=== PATIENT | male | born 1960 | race Caucasian/White ===

== ENCOUNTER 2018-02-23 11:42 | Inpatient (IN) | payer OTHER ==
[~2018-02-23] VITALS: Ht 188 cm; Wt 86.8 kg
[~2018-02-23 11:42] MED LIST: HYDR-4011 PO; IBUP-1542 PO
[2018-02-23] MEDS ORDERED: FUROSEMIDE 40 MG INJ IV STA (11:47)
[2018-02-23] MEDS ORDERED: ASPIRIN 81 MG TAB PO STA (11:47)
[2018-02-23] MEDS ORDERED: NITROGLYCERIN 2% 1 GM OINT PKT TD STA (11:47)
[2018-02-23] MEDS ORDERED: NITROGLYCERIN (SL) 0.4 MG TAB SL PRN (12:00)
[2018-02-23] MEDS ORDERED: CARV6.2579 PO (13:06)
[2018-02-23] MEDS ORDERED: ALLO100T PO (13:06)
[2018-02-23] MEDS ORDERED: ATOR40TA68 PO (13:06)
[2018-02-23] MEDS ORDERED: DIGO125T PO (13:06)
[2018-02-23] MEDS ORDERED: MULTI PO (13:07)
[2018-02-23] MEDS ORDERED: FURO20TA3 PO (13:07)
[2018-02-23] MEDS ORDERED: LISI2.5T59 PO (13:07)
[2018-02-23] MEDS ORDERED: RIVA20TA5 PO (13:08)
[2018-02-23] MEDS ORDERED: ACETAMINOPHEN 325 MG TAB PO PRN ×2 (13:30→14:00)
[2018-02-23] MEDS ORDERED: ONDANSETRON 4 MG INJ IV PRN ×2 (13:30→14:00)
--- NOTE | 2018-02-23 13:32 | ERD ---
ER Documentation Chief Complaint Chief Complaint left lower leg varicose bleed. bleeding controlled, denies pain HPI Patient is a 57-year-old male with CHF and hypertension who presents with shortness of breath. He was brought in by ambulance. He said that his left leg varicose vein started bleeding 40 minutes ago. He wrapped the leg himself. He had shortness of breath and trouble with laying down which started last night. He has bilateral lower extremity swelling. He said that he has been waking up around 3 AM with shortness of breath and going to his armed security officer because he is worried he is going to pass out because of the shortness of breath. He does take Xarelto. He takes daily Lasix. He said that his primary doctor is at [facility]. ROS All systems reviewed and are negative except as per history of present illness. Medications Home Meds Reported Medications Rivaroxaban* (Xarelto*) 20 Mg Tablet, 20 MG PO WITH DINNER, TAB 02/23/18 Multivitamins* (Theragran*) 1 Tab Tab, 1 TAB PO DAILY, TAB 02/23/18 Lisinopril* (Lisinopril*) 2.5 Mg Tablet, 2.5 MG PO DAILY, #30 TAB 02/23/18 Furosemide* (Furosemide*) 20 Mg Tablet, 20 MG PO DAILY, #60 TAB 02/23/18 Digoxin* (Digitek*) 125 Mcg Tablet, 0.125 MG PO DAILY, TAB 02/23/18 Carvedilol* (Carvedilol*) 6.25 Mg Tablet, 6.25 MG PO BID, #60 TAB 02/23/18 Atorvastatin* (Atorvastatin*) 40 Mg Tablet, 40 MG PO QHS, #30 TAB 02/23/18 Allopurinol* (Allopurinol*) 100 Mg Tablet, 100 MG PO DAILY, TAB 02/23/18 Discontinued Reported Medications Multivitamins* (Theragran*) 1 Tab Tab, 1 TAB PO DAILY, TAB 02/23/18 Discontinued Scripts Hydrocodone/Acetaminophen (Mentmore 5-325 Tablet) 1 Each Tablet, 1 TAB PO Q6H PRN for PAIN, #7 TAB Prov:SOWMYA FARLEY MD 08/06/17 Ibuprofen* (Motrin*) 600 Mg Tab, 600 MG PO Q6, #20 TAB Prov:SOWMYA FARLEY MD 08/06/17 Allergies Allergies: Coded Allergies: No Known Drug Allergies (Verified Allergy, Mild, 04/07/11) PMhx/Soc History of Surgery: No Anesthesia Reaction: No Hx Neurological Disorder: No Hx Respiratory Disorders: No Hx Cardiac Disorders: Yes (CHF) Hx Psychiatric Problems: No Hx Miscellaneous Medical Probl: No Hx Alcohol Use: No Hx Substance Use: No Hx Tobacco Use: No Smoking Status: Never smoker FmHx Family History: No diabetes Physical Exam Vitals Vital Signs Date Temp Pulse Resp B/P (MAP) Pulse Ox O2 O2 Flow FiO2 Time Delivery Rate 02/23/18 Nasal 2 12:23 Cannula 02/23/18 98.1 82 18 112/82 100 11:46 (92) Physical Exam Const: No acute distress Head: Atraumatic Eyes: Normal Conjunctiva ENT: Normal External Ears, Nose and Mouth. Neck: Full range of motion. No meningismus. Resp: Decreased breath sounds bilaterally Cardio: Tachycardic rate without murmur Abd: Soft, non tender, non distended. Normal bowel sounds Skin: No active bleeding from a left lower extremity varicose vein Back: No midline or flank tenderness Ext: 2+ pitting edema bilateral lower extremities Neur: Awake and alert Psych: Normal Mood and Affect Result Diagram: 02/23/18 1210 02/23/18 1210 Results 24 hrs Laboratory Tests Test 02/23/18 12:10 White Blood Count 8.8 10^3/ul Red Blood Count 3.95 10^6/ul Hemoglobin 13.4 g/dl Hematocrit 40.9 % Mean Corpuscular Volume 103.5 fl Mean Corpuscular Hemoglobin 33.9 pg Mean Corpuscular Hemoglobin Concent 32.8 g/dl Red Cell Distribution Width 13.5 % Platelet Count 171 10^3/UL Mean Platelet Volume 11.8 fl Immature Granulocytes % 0.300 % Neutrophils % 68.2 % Lymphocytes % 18.2 % Monocytes % 11.5 % Eosinophils % 1.0 % Basophils % 0.8 % Nucleated Red Blood Cells % 0.0 /100WBC Immature Granulocytes # 0.030 10^3/ul Neutrophils # 6.0 10^3/ul Lymphocytes # 1.6 10^3/ul Monocytes # 1.0 10^3/ul Eosinophils # 0.1 10^3/ul Basophils # 0.1 10^3/ul Nucleated Red Blood Cells # 0.0 10^3/ul Prothrombin Time 16.1 Sec Prothrombin Time Ratio 1.3 INR International Normalized Ratio 1.27 Activated Partial Thromboplast Time 34.2 Sec Sodium Level 137 mmol/L Potassium Level 3.5 mmol/L Chloride Level 95 mmol/L Carbon Dioxide Level 27 mmol/L Anion Gap 15 Blood Urea Nitrogen 34 mg/dl Creatinine 1.32 mg/dl Est Glomerular Filtrat Rate mL/min 56 mL/min Glucose Level 124 mg/dl Calcium Level 8.6 mg/dl Troponin I 0.030 ng/ml Current Medications Medications Dose Sig/Pedro Start Time Status Last (Trade) Ordered Route PRN Stop Time Admin Dose Reason Admin Aspirin 162 mg ONCE STAT 02/23/18 DC 02/23/18 (Aspirin) PO 11:47 12:25 02/23/18 11:49 1 inch ONCE STAT 02/23/18 DC 02/23/18 Nitroglycerin TD 11:47 12:24 02/23/18 (Nitroglyceri 11:49 n 2% Oint) 1 tab Q5M UP TO 3 02/23/18 Nitroglycerin DOSES PRN 12:00 SL CHEST (Nitroglyceri PAIN n (Sl Tab) 0.4 Mg) Furosemide 40 mg ONCE STAT 02/23/18 DC 02/23/18 (Lasix) IV 11:47 12:25 02/23/18 11:49 Ondansetron 4 mg ER BRIDGE 02/23/18 HCl (Zofran PRN IV 13:30 Inj) NAUSEA AND/OR 02/24/18 VOMITING 13:29 650 mg ER BRIDGE 02/23/18 Acetaminophen PRN PO MILD 13:30 (Tylenol PAIN(1-3)OR 02/24/18 Tab) ELEVATED TEMP 13:29 Procedures/MDM Chest x-ray shows cardiomegaly per radiology. EKG read by me: Rate/Rhythm: Tachycardia Intervals: Normal Impression: Sinus tachycardia without ST elevations Patient is a 57-year-old male presents with shortness of breath. I believe the patient has acute congestive heart failure. I doubt pneumonia, pneumothorax, pulmonary embolism, or aortic dissection. The patient will be admitted to the care of Dr. Flores from the panel team to a telemetry observation bed. The patient was given aspirin, nitroglycerin, and Lasix. Initial troponin is within normal limits. Departure Diagnosis: Primary Impression: CHF (congestive heart failure) Heart failure type: unspecified Heart failure chronicity: acute Qualified Codes: I50.9 - Heart failure, unspecified Additional Impression: Active bleeding Condition: AIDA Xiong MD Feb 23, 2018 13:32
--- NOTE | 2018-02-23 13:57 | HP ---
Date/Time of Note Date/Time of Note DATE: 02/23/18 TIME: 13:56 Assessment/Plan VTE Prophylaxis Pharmacological prophylaxis: other Lines/Catheters IV Catheter Type (from Nrs): Saline Lock Assessment/Plan Hospital Course Objective Physical exam General: Patient is laying in bed and answers questions appropriately Mentation: Patient is alert and oriented 4, Head: Normocephalic atraumatic Eyes: EOMI, pupils reactive to light Neck: Supple, nontender, midline Respiratory: Clear to auscultation bilaterally Cardiovascular: regular rate, no obvious murmurs Gastrointestinal: non-tender to palpation, bowel sounds heard. Neurological: Moves all extremities spontaneously Skin: No new skin lesions Assessment and plan Acute hypoxic respiratory distress -Secondary to noncompliance of oxygen therapy, however this is not patient's fall, supplies were not delivered -patient has CHF with ejection fraction of 10% -Place patient on nasal cannula -Patient comfortable -Trend troponins Acute on chronic systolic congestive heart failure, EF of 10% -Cardiology has been consulted -Restart patient's home medications, defer to cardiology for any changes and recommendations A. fib -Patient on Xarelto -Continue home meds Hypertension -Continue home meds Dyslipidemia -Continue home meds Bleeding left leg -very small cut, -Already stopped bleeding -Bilateral ultrasound as patient stated that swelling was because of the cut Acute kidney injury -Nephrology consulted Disposition -Case management will need to arrange and ensure patient has all supplies ready for him at home, cardiology will make minor adjustments to his medications and patient will likely be discharged in a day or 2. HPI/ROS Admit Date/Time Admit Date/Time Hx of Present Illness Patient is a male with a past medical history significant for A. fib as well as systolic CHF with ejection fraction of 10% who presents to [facility] for a cut on his left leg. Patient stated that his leg is been more swollen and there was a mild cut that has now stopped bleeding. Coincidentally after further inquiry patient stated that recently he has been getting progressively worsening shortness of breath when he lies down and has noticed more swelling in his lower extremity. Patient follows up with a cardiology nurse practitioner at [facility], and is more or less compliant with his medications. Patient does have a social media strategist that does take care of him on his behalf with his social issues. Patient states that oxygen tanks have been delivered to him by his doctor however he has no nasal cannula supplies. Patient denies chest pain, headache, double vision, abdominal pain, leg pain PMH/Family/Social Past Medical History Coded Allergies: No Known Drug Allergies (Verified Allergy, Mild, 04/07/11) Social History Smoking Status: Never smoker Exam/Review of Systems Vital Signs Vitals Vital Signs Date Temp Pulse Resp B/P (MAP) Pulse Ox O2 O2 Flow FiO2 Time Delivery Rate 02/23/18 Nasal 2 12:23 Cannula 02/23/18 98.1 82 18 112/82 100 11:46 (92) Medications Medications Current Medications Nitroglycerin (Nitroglycerin (Sl Tab) 0.4 Mg) 1 tab Q5M UP TO 3 DOSES PRN SL CHEST PAIN; Start 02/23/18 at 12:00 Ondansetron HCl (Zofran Inj) 4 mg ER BRIDGE PRN IV NAUSEA AND/OR VOMITING; Start 02/23/18 at 13:30; Stop 02/24/18 at 13:29 Acetaminophen (Tylenol Tab) 650 mg ER BRIDGE PRN PO MILD PAIN(1-3)OR ELEVATED TEMP; Start 02/23/18 at 13:30; Stop 02/24/18 at 13:29 Results Result Diagram: 02/23/18 1210 02/23/18 1210 Results 24 hrs Laboratory Tests Test 02/23/18 12:10 White Blood Count 8.8 Red Blood Count 3.95 L Hemoglobin 13.4 L Hematocrit 40.9 L Mean Corpuscular Volume 103.5 H Mean Corpuscular Hemoglobin 33.9 H Mean Corpuscular Hemoglobin Concent 32.8 Red Cell Distribution Width 13.5 Platelet Count 171 Mean Platelet Volume 11.8 H Immature Granulocytes % 0.300 Neutrophils % 68.2 Lymphocytes % 18.2 Monocytes % 11.5 H Eosinophils % 1.0 Basophils % 0.8 Nucleated Red Blood Cells % 0.0 Immature Granulocytes # 0.030 Neutrophils # 6.0 Lymphocytes # 1.6 Monocytes # 1.0 H Eosinophils # 0.1 Basophils # 0.1 Nucleated Red Blood Cells # 0.0 Prothrombin Time 16.1 H Prothrombin Time Ratio 1.3 INR International Normalized Ratio 1.27 Activated Partial Thromboplast Time 34.2 Sodium Level 137 Potassium Level 3.5 Chloride Level 95 L Carbon Dioxide Level 27 Anion Gap 15 H Blood Urea Nitrogen 34 H Creatinine 1.32 H Est Glomerular Filtrat Rate mL/min 56 L Glucose Level 124 Calcium Level 8.6 Troponin I 0.030 GUSTAVO GIANG Feb 23, 2018 13:57
[2018-02-23] MEDS ORDERED: NACL 0.9% 3 ML SYG IV SCH (14:00)
[2018-02-23] MEDS ORDERED: HYDROCODONE/APAP (5/325) TAB PO PRN (14:00)
[2018-02-23 14:45] VITALS: BP 98/64; PULSE 54; RESP 18; Ht 188 cm; Wt 86.8 kg
[2018-02-23 15:00] VITALS: PULSE 98
--- NOTE | 2018-02-23 16:11 | RADRPT ---
Echocardiogram Report Patient Name: JESSICA MASSEY Gender: Male Date: 1960 Study Date: 23-Feb-2018 Typing Office Worker: Harshad Ng RDCS Location: [facility] Ref. Physician: GUSTAVO GIANG Quality: Adequate Procedures: Transthoracic echocardiogram with complete 2D, M-Mode, and doppler examination. Indications: Congestive Heart Failure. 2D/M Mode Doppler Measurement Value Normal Ranges Measurement Value Normal Ranges LVIDd 2D 7.1 3.5 - 5.6 cm AV Peak Sebastian 1.0 m/sec LVIDs 2D 6.6 2.1 - 4.1 cm AV Peak PG 4.0 mmHg LVPWd 2D 0.9 0.6 - 1.1 cm LVOT Peak Sebastian 0.7 m/sec IVSd 2D 1.0 0.6 - 1.1 cm LVOT Peak PG 2.0 mmHg AoR Diam 2D 3.2 2.0 - 3.7 cm TAPSE 1.0 cm LA/Ao 2D 2 0 - 1 TR Peak Sebastian 2.8 m/sec LA Dimen 2D 5.9 2.3 - 4.0 cm TR Peak PG 31.0 mmHg RVSP 46.0 mmHg RA Pressure 15.0 Findings Left Ventricle: Normal left ventricular wall thickness. Severe enlargement of left ventricle cavity. Severe global left ventricular systolic dysfunction. Ejection fraction is visually estimated at 10 %. Right Ventricle: Severe right ventricular systolic dysfunction. Moderate enlargement of right ventricle. Left Atrium: There is severe enlargement of left atrium. LA Dimension5.90 cm. Right Atrium: There is severe enlargement of right atrium. Mitral Valve: Mitral valve leaflets appear mildly thickened. Mild mitral annular calcification. Mild to moderate mitral valve regurgitation. Aortic Valve: Normal appearance of the aortic valve. No significant aortic stenosis or insufficiency. Tricuspid Valve: Normal appearance of the tricuspid valve. Estimated peak PA systolic pressure 46 mmHg. There is mild tricuspid regurgitation. Pulmonic Valve: Normal pulmonic valve appearance. Pericardium: Small pericardial effusion. Aorta: Normal aortic root. IVC: Dilated IVC without respiratory collapse consistent with elevated right atrial pressure. Conclusions The left ventricle is severely dilated with severely reduced systolic function. Estimated left ventricular ejection fraction of 10%. The right ventricle is moderately dilated with severe hypokinesis. Mild to moderate mitral regurgitation. Severe bi-atrial enlargement. Estimated RVSP of 46 mmHg. Elevated right atrial pressure (estimated to be 15 mmHg). Electronically Signed By: Derek Onofre 23-Feb-2018 16:10:16 -0800 Patient Name: JESSICA MASSEY Study Date: 23-Feb-[id number]
[2018-02-23 16:12] VITALS: PULSE 117
--- NOTE | 2018-02-23 17:22 | CONS ---
DATE OF ADMISSION: 02/23/2018 DATE OF CONSULTATION: 02/23/2018 TYPE OF CONSULTATION: Nephrology. REASON FOR CONSULTATION: Acute kidney injury. PHYSICIAN REQUESTING CONSULT: Dr. Giang. HISTORY OF PRESENT ILLNESS: This is a 57-year-old male with a past medical history of card iomyopathy, ejection fraction 10%, possibly viral, a history of AFib, hypertension, dyslipidemia who presents to [facility] with progressive shortness of breath, lower extremity swelli ng. The patient states that he is followed at [facility] by Cardiology Department. The patient stated ejection fraction approximately 10% and is pending ICD placement. The patient states that he has been on diuretic therapy but he has been getting progressively short of breath. As a result, he came to the emergency room. Upon arrival, the patient noted to have a BUN 34, creatinine 1.32. Marcela st x-ray was obtained which showed marked cardiomegaly. The patient in the emergency room was placed on diuretic therapy and admitted to telemetry. In terms of patient's renal history, the patient has no prior history of acute kidney injury or chron ic kidney disease. The patient does take diuretics at home and is on SOHAIL inhibitor. The patient den ies any NSAID use, any hemoptysis, hematemesis or hematochezia. PAST MEDICAL HISTORY: History of severe cardiomyopathy, history of AFib, hypertension, dyslipidemia. PAST SURGICAL HISTORY: None. ALLERGIES: NO KNOWN DRUG ALLERGIES. FAMILY HISTORY: No family history of kidney disease. SOCIAL HISTORY: Does not actively drink, smoke or do drugs. MEDICATIONS: The patient's medications have been reviewed. REVIEW OF SYSTEMS: A 14-point review of systems was conducted. Pertinent positives stated in HPI, o therwise negative. PHYSICAL EXAMINATION: VITAL SIGNS: Blood pressure is 102/83, respirations 24, pulse 122, temperature 98.1. HEENT: Head is normocephalic. NECK: Supple. HEART: Tachycardic. LUNGS: Show diminished breath sounds at the base. ABDOMEN: Soft, nontender to palpation without rebound or guarding. EXTREMITIES: Negative for clubbing, cyanosis. Positive edema. DERMATOLOGIC: The patient has noted ecchymosis on lower extremities. NEUROLOGIC: No change in exam. MUSCULOSKELETAL: No joint effusions. MEDICATIONS: The patient's medications have been reviewed. LABORATORY DATA: Shows sodium 137, potassium 3.5, chloride 95, BUN 34, creatinine 1.32. White count 8.8, hemoglobin 13.4, platelet count 171. ASSESSMENT AND PLAN: This is a 57-year-old male who presents with: 1. Nonoliguric acute kidney injury with previous baseline creatinine of 0.83 mg/dL. Etiology is con cerning for cardiorenal syndrome. Other possibilities include diuretics, SOHAIL inhibitor effect. Plan at this point is to check urinalysis with microanalysis, check urine electrolytes, calculate a FENa. We will check a renal ultrasound to evaluate renal parenchyma. Would recommend to continue diureti c therapy at this time as the patient is decompensated. Continue to monitor strict I's and O's. Con tinue supportive care, renally dose all meds. Would defer SOHAIL inhibitor at this time. 2. Anemia. Monitor hemoglobin and hematocrit levels. 3. Mineral bone disorder. Monitor calcium and phosphorus levels. 4. Mcijz-aw-irnucyy systolic heart failure. The patient's ejection fraction approximately 10%. Con tinue current medical management. Consider repeat 2D echo. Other possibilities of acute exacerbation include dietary noncompliance versus progression of disease versus ACS. Check serial troponins, mon itor closely. 5. Atrial fibrillation. Continue medical management. Continue Xarelto. 6. Hypertension. The patient is currently normotensive. Continue to monitor. 7. Dyslipidemia. Continue statin therapy. 8. Acute hypoxemic respiratory failure secondary to decompensated congestive heart failure. Continu e medical management. Continue diuretic therapy, monitor closely. Thank you, Dr. Giang, for this interesting consult. It will be a pleasure to follow patient with you t hroughout the hospital course. Dictated By: CATA GUERRERO DO NR/NTS Conf#: [id number] DID#: [id number] CC: GUSTAVO GIANG MD;*EndCC*
--- NOTE | 2018-02-23 17:23 | CONS ---
Date/Time of Note Date/Time of Note DATE: 02/23/18 TIME: 17:10 Assessment/Plan Assessment/Plan Chief Complaint/Hosp Course Assessment: Acute on chronic systolic heart failure - current echocardiogram shows LVEF 10%, mild to moderate MR, RVSP 46 mmHg, IVC consistent with elevated right atrial pressure Nonischemic cardiomyopathy, LVEF 10% Chronic atrial fibrillation Dyslipidemia Acute kidney injury Left lower extremity bleeding - thought secondary to small cut wound, bleeding has now resolved Recommendations: -Lasix 40mg IV BID -continue carvedilol 6.25mg BID -hold lisinopril, resume when renal function stabilized -continue digoxin 0.125mg daily -continue Xarelto 20mg daily -as outpatient, will need continued cardiology follow up to work up for primary prevention ICD and possibly advanced heart failure therapies Consultation Date/Type/Reason Admit Date/Time Type of Consult Cardiology Reason for Consultation congestive heart failure Hx of Present Illness The patient is a 57 year-old male with chronic systolic heart failure who presented with bleeding from his left lower extremity, thought secondary to a small cut wound. Unrelated to his presenting symptoms he notes worsening shortness of breath, paroxysmal nocturnal dyspnea, and lower extremity swelling. EKG shows atrial fibrillation with rapid ventricular response. Initial troponin was negative and BNP was elevated at 18,200. Bilateral lower extremity Dopplers are negative for deep vein thrombosis. He has known chronic systolic heart failure and nonischemic cardiomyopathy with a left ventricular ejection fraction of 10%. He reports prior coronary work up with cardiac catheterization. He follows with a cardiology nurse practitioner at [facility], and reports being worked up for a primary prevention ICD as an outpatient. 14 point review of systems negative other than per HPI. Past Medical History Chronic systolic heart failure Nonischemic cardiomyopathy Chronic atrial fibrillation Dyslipidemia Medications Current Medications Nitroglycerin (Nitroglycerin (Sl Tab) 0.4 Mg) 1 tab Q5M UP TO 3 DOSES PRN SL CHEST PAIN; Start 02/23/18 at 12:00 Allopurinol (Zyloprim) 100 mg DAILY PO ; Start 02/24/18 at 09:00 Atorvastatin Calcium (Lipitor) 40 mg QHS PO ; Start 02/23/18 at 21:00 Carvedilol (Coreg) 6.25 mg BID PO ; Start 02/23/18 at 21:00 Digoxin (Digoxin) 0.125 mg DAILY@1300 PO ; Start 02/24/18 at 13:00 Multivitamins Therapeutic (Theragran) 1 tab DAILY PO ; Start 02/24/18 at 09:00 Rivaroxaban (Xarelto) 20 mg WITH DINNER PO ; Start 02/23/18 at 18:00 IV Flush (NS 3 ml) 3 ml PER PROTOCOL IV ; Start 02/23/18 at 14:00 Ondansetron HCl (Zofran Inj) 4 mg Q6H PRN IV NAUSEA AND/OR VOMITING; Start 02/23/18 at 14:00 Acetaminophen (Tylenol Tab) 650 mg Q6H PRN PO PAIN LEVEL 1-3 OR FEVER; Start 02/23/18 at 14:00 Acetaminophen/ Hydrocodone Bitart (Methow (5/325)) 1 tab Q6H PRN PO PAIN LEVEL 4-6; Start 02/23/18 at 14:00 Aspirin (Aspirin) 81 mg DAILY PO ; Start 02/24/18 at 09:00 Furosemide (Lasix) 20 mg BID DIURETICS IV ; Start 02/24/18 at 06:00 Allergies: Coded Allergies: No Known Drug Allergies (Verified Allergy, Mild, 04/07/11) Past Surgical History Past Surgical Hx: no surgical history Family History Significant Family History: no pertinent family hx Social History Alcohol Use: occasionally Smoking Status: Never smoker Drug Use: none Exam/Review of Systems Vital Signs Vitals Vital Signs Date Temp Pulse Resp B/P (MAP) Pulse Ox O2 O2 Flow FiO2 Time Delivery Rate 02/23/18 117 16:12 02/23/18 98.0 18 98/64 (75) 93 Room Air 14:45 02/23/18 2 12:23 Exam Constitutional: alert, well developed Psych: no complaints, nl mood/affect Head: normocephalic, atraumatic Eyes: nl conjunctiva, nl lids ENMT: nl external ears & nose, nl nasal mucosa & septum Neck: supple, non-tender, jvd Respiratory: clear to auscultation Cardiovascular: irregular rhythm Gastrointestinal: soft, non-tender Musculoskeletal: swelling Extremities: edema; No cyanosis, No clubbing Neurological: nl mental status, nl speech WILIAN BAILEY MD Feb 23, 2018 17:21
[2018-02-23] MEDS: RIVAROXABAN 20 MG TABLET PO SCH (19:53)
[2018-02-23 19:55] VITALS: BP 107/66; PULSE 73; RESP 19
[2018-02-23 20:04] VITALS: PULSE 111
[2018-02-23] MEDS: ATORVASTATIN 40 MG TAB PO SCH (21:08)
[2018-02-24] VITALS (11 sets, daily range): BP systolic 101–128; BP diastolic 59–91; PULSE 72–132; RESP 19–22
[2018-02-24] MEDS: FUROSEMIDE 40 MG INJ IV SCH ×2 (05:27→17:12)
[2018-02-24] MEDS ORDERED: FUROSEMIDE 20 MG INJ IV SCH (06:00)
--- NOTE | 2018-02-24 06:33 | NUR ---
EOSS: PATIENT IS A/O X3, VSS, A FIB ON THE MONITOR (HR 110'S, MD AWARE), NO C/O CP BUT DOES EXPERIENCE ORTHOPNEA AND SOB, NO ACUTE EVENTS OVER NIGHT. PATIENT IS CLEAN AND DRY, HAS CALL LIGHT IN REACH, REFUSING BED ALARM, BED IN LOWEST POSITION, NON-SLIP SOCKS ON, AND ROOM IS CLUTTER FREE. CONTINUE POC, WILL ENDORSE TO DAY SHIFT RN.
[2018-02-24] MEDS: MULTIVITAMINS THERAPEUTIC TAB PO SCH (08:10)
[2018-02-24] MEDS: ASPIRIN 81 MG TAB PO SCH (08:10)
[2018-02-24] MEDS ORDERED: POTASSIUM CHLORIDE (SR) 20 MEQ TAB PO STA (08:45)
[2018-02-24] MEDS ORDERED: ALLOPURINOL 100 MG TAB PO SCH (09:00)
[2018-02-24] MEDS ORDERED: LISINOPRIL 5 MG TAB PO SCH (09:00)
[2018-02-24] MEDS ORDERED: FUROSEMIDE 20 MG TAB PO SCH (09:00)
[2018-02-24] MEDS ORDERED: INFLUENZA VIRUS VACCINE 0.5 ML (DISPENSING) IM* ONE (09:00)
--- NOTE | 2018-02-24 09:00 | NUR ---
PT EVAL Therapy day number 1 Evaluation Start Time 09:00 Evaluation Total Time 0 min Subjective Denies pain Pain Scale NUMERIC Pain Intensity 0 (0-10) Patient Stated Goal for Pain Relief 0 (0-10) Pain Level Comment denies pain Pre Treatment Vital Signs Stable Yes Exercise Assessment Label Bilat Lower Extremity Exercise Type Active ROM Additional Exercise Comments seated APs, LAQs, marching Supine to Sit Modified Independent Transfer Sit to Stand Ability Stand by Assist Bed Mobility Sit to Supine Modified Independent Bed Transfer Ability Stand by Assist Chair Transfer Ability Stand by Assist Sitting Tolerance 15 min Patient uses wheelchair Not Applicable Gait Assist Levels Contact Guard Assist Assistive Devices None Front Wheel Walker Ambulation Distance 40 feet Additional Gait Comments 40' x 3 with FWW with standing rest breaks between bouts, see PT note Static Sitting Balance Good Dynamic Sitting Balance Good Standing Static Balance Fair plus Dynamic Standing Balance Fair plus Additional Balance Assessments Comments with FWW Safety Judgement Fair Activity Tolerance Fair Additional Equipment Present 2LO2 via NC Post Treatment Pain Intensity 0 0-10 Quality Indicators SOB Upon Exertion Dizziness Light headedness Variance Documentation SEE PT EVAL PT Technical Record Comment PT CASH Pt is a 57 yo M Afib, systolic CHF with EF 10%, cardiomyopathy, HTN, dyslipidemia, who presented to [facility] with cut on L leg and progressively worsening SOB and swelling in LE. Imaging found no sonographic evidence of DVT. Pt reports being worked up for primary prevention ICD as an outpatient. Pt received in 6W, telemetry floor. PLOF: Pt lives alone in 4th floor apartment with elevator access. Ambulatory using FWW and owns a SPC, walking sticks. Pt lives in a "medical building" that has a program assisting residents with iADLs CLOF: THOMAS Smith cleared pt for PT evaluation. Pt received in bed, agreeable to PT evaluation, vitals assessed and stable. Pt educated in fall precautions, safety awareness, and purpose of PT evaluation. Bed mobility, transfers and gait assessed as above. With gait, noted frequent rest breaks, SOB upon exertion, pt reporting dizziness. Pt returned to bed, all needs in reach, no signs of distress, RN notified of pt's status. End vitals 96/64, 96%O2 on 2LO2, 71bpm. Recommendation: Pt demonstrates limited activity tolerance, only able to ambulate ~40' at a time requiring 1-2 minute rest break due to cramping/fatigue in legs and mild SOB. Gait assessed without AD, noted unsteady, high guard, LE crossing midline occassionally. Pt will benefit from additional skilled PT during hospital stay to improve overall endurance and for safety training. PLan: Gait training at progressively increasing intervals, continue c PT POC (Daily x 5) Addendum: 02/24/18 at 1008 by CAYDEN BROWN PT D/c recommendation home once cleared by MD, no anticipated DME needs.
[2018-02-24] MEDS: DIGOXIN 0.125 MG TAB PO SCH (12:57)
--- NOTE | 2018-02-24 13:19 | CONS ---
Date/Time of Note Date/Time of Note DATE: 02/24/18 TIME: :18 Assessment/Plan Assessment/Plan Chief Complaint/Hosp Course Assessment: Acute on chronic systolic heart failure - current echocardiogram shows LVEF 10%, mild to moderate MR, RVSP 46 mmHg, IVC consistent with elevated right atrial pressure Nonischemic cardiomyopathy, LVEF 10% Chronic atrial fibrillation Dyslipidemia Acute kidney injury Left lower extremity bleeding - thought secondary to small cut wound, bleeding has now resolved Recommendations: -continue Lasix 40mg IV BID -continue carvedilol 6.25mg BID -hold lisinopril, resume when renal function stabilized -continue digoxin 0.125mg daily -continue Xarelto 20mg daily -as outpatient, will need continued cardiology follow up to work up for primary prevention ICD and possibly advanced heart failure therapies Consultation Date/Type/Reason Admit Date/Time Feb 23, 2018 at 13:17 Initial Consult Date Type of Consult Cardiology 24 HR Interval Summary Free Text/Dictation Orthopnea and lower extremity edema improving with diuresis. Detailed Summary Additional Comments 14 point review of systems without changes. Exam/Review of Systems Vital Signs Vitals Vital Signs Date Temp Pulse Resp B/P (MAP) Pulse Ox O2 O2 Flow FiO2 Time Delivery Rate 02/24/18 101 12:00 02/24/18 98.0 22 103/69 93 Nasal 11:05 (80) Cannula 02/24/18 2.0 07:40 Intake and Output 02/23/18 02/23/18 02/24/18 1515:00 23:00 07:00 IntakeIntake Total 590 ml 500 ml OutputOutput Total 600 ml 950 ml BalanceBalance -10 ml -450 ml Exam Constitutional: alert, well developed Psych: no complaints, nl mood/affect Head: normocephalic, atraumatic Eyes: nl conjunctiva, nl lids ENMT: nl external ears & nose, nl nasal mucosa & septum Neck: supple, non-tender, jvd Respiratory: clear to auscultation Cardiovascular: irregular rhythm Gastrointestinal: soft, non-tender Musculoskeletal: swelling Extremities: edema; No cyanosis, No clubbing Neurological: nl mental status, nl speech WILIAN BAILEY MD Feb 24, 2018 13:19
--- NOTE | 2018-02-24 15:48 | PN ---
Date/Time of Note Date/Time of Note DATE: 02/24/18 TIME: 15:45 Objective Vitals Vital Signs Date Temp Pulse Resp B/P (MAP) Pulse Ox O2 O2 Flow FiO2 Time Delivery Rate 02/24/18 98.0 84 22 110/73 100 Nasal 15:43 (85) Cannula 02/24/18 2.0 07:40 Intake and Output 02/23/18 02/23/18 02/24/18 1515:00 23:00 07:00 IntakeIntake Total 590 ml 500 ml OutputOutput Total 600 ml 950 ml BalanceBalance -10 ml -450 ml Results Result Diagram: 02/24/18 0502/24/18 05 Medications Medications Current Medications Nitroglycerin (Nitroglycerin (Sl Tab) 0.4 Mg) 1 tab Q5M UP TO 3 DOSES PRN SL CHEST PAIN; Start 02/23/18 at 12:00 Atorvastatin Calcium (Lipitor) 40 mg QHS PO Last administered on 02/23/18at 21:08; Admin Dose 40 MG; Start 02/23/18 at 21:00 Carvedilol (Coreg) 6.25 mg BID PO Last administered on 02/24/18at 08:11; Admin Dose 6.25 MG; Start 02/23/18 at 21:00 Digoxin (Digoxin) 0.125 mg DAILY@1300 PO Last administered on 02/24/18at 12:57; Admin Dose 0.125 MG; Start 02/24/18 at 13:00 Multivitamins Therapeutic (Theragran) 1 tab DAILY PO Last administered on 02/24/18at 08:10; Admin Dose 1 TAB; Start 02/24/18 at 09:00 Rivaroxaban (Xarelto) 20 mg WITH DINNER PO Last administered on 02/23/18at 19:53; Admin Dose 20 MG; Start 02/23/18 at 18:00 IV Flush (NS 3 ml) 3 ml PER PROTOCOL IV ; Start 02/23/18 at 14:00 Ondansetron HCl (Zofran Inj) 4 mg Q6H PRN IV NAUSEA AND/OR VOMITING; Start 02/23/18 at 14:00 Acetaminophen (Tylenol Tab) 650 mg Q6H PRN PO PAIN LEVEL 1-3 OR FEVER; Start 02/23/18 at 14:00 Acetaminophen/ Hydrocodone Bitart ([place] (5/325)) 1 tab Q6H PRN PO PAIN LEVEL 4-6; Start 02/23/18 at 14:00 Aspirin (Aspirin) 81 mg DAILY PO Last administered on 02/24/18at 08:10; Admin Dose 81 MG; Start 02/24/18 at 09:00 Furosemide (Lasix) 40 mg BID DIURETICS IV Last administered on 02/24/18at 05:27; Admin Dose 40 MG; Start 02/24/18 at 06:00 Allopurinol (Zyloprim) 300 mg DAILY PO ; Start 02/25/18 at 09:00 VTE Prophylaxis Risk score (from [facility])>0 risk: 3 SCD applied (from [facility]): No SCD contraindication: other Lines/Catheters IV Catheter Type: [place]ac[place] in Place: No Assessment/Plan Hospital Course subjective patient had episode of SOB overnight, but feels much better now, had some leg cramping that has also resolved Objective Physical exam General: Patient is laying in bed and answers questions appropriately Mentation: Patient is alert and oriented 4, Head: Normocephalic atraumatic Eyes: EOMI, pupils reactive to light Neck: Supple, nontender, midline Respiratory: Clear to auscultation bilaterally Cardiovascular: regular rate, no obvious murmurs Gastrointestinal: non-tender to palpation, bowel sounds heard. Neurological: Moves all extremities spontaneously Skin: No new skin lesions Assessment and plan Acute hypoxic respiratory distress -Secondary to noncompliance of oxygen therapy, however this is not patient's fall, supplies were not delivered -patient has CHF with ejection fraction of 10% -Place patient on nasal cannula -Patient comfortable -resolving Acute on chronic systolic congestive heart failure, EF of 10% -Cardiology has been consulted -Restart patient's home medications, defer to cardiology for any changes and recommendations -lasix 40 iv bid for now A. fib -Patient on Xarelto -Continue home meds Hypertension -Continue home meds Dyslipidemia -Continue home meds Bleeding left leg -very small cut, -Already stopped bleeding -Bilateral ultrasound as patient stated that swelling was because of the cut Acute kidney injury -Nephrology consulted leg/foot cramps -resolved Disposition -Case management will need to arrange and ensure patient has all supplies ready for him at home, cardiology will make minor adjustments to his medications and patient will likely be discharged when able to titrate down lasix. GUSTAVO GIANG Feb 24, 2018 15:48
--- NOTE | 2018-02-24 16:40 | NUR ---
cm note s/w patient and per him [facility] was providing him with home o2 prior to admission and now he stated that they told him that o2 is gone and hospital will need to provide him oxygen.
--- NOTE | 2018-02-24 16:54 | PN ---
DATE: 02/24/2018 SUBJECTIVE: The patient is stable. No other events overnight. OBJECTIVE: VITAL SIGNS: Blood pressure is 119/91, respirations 20, pulse 92, temperature 98.0. HEENT: Head is normocephalic. NECK: Supple. HEART: Regular rate. LUNGS: Show diminished breath sounds at base. ABDOMEN: Soft, nontender to palpation without rebound or guarding. EXTREMITIES: Negative for clubbing, cyanosis. Positive for trace edema. DERMATOLOGIC: No rashes. MUSCULOSKELETAL: No joint effusion. NEUROLOGIC: No change in exam. MEDICATIONS: Have been reviewed. LABORATORY DATA: Show sodium 140, potassium 3.3, BUN 37, creatinine 1.33. Uric acid 12.4. White co unt 8.9, hemoglobin 12.5, platelet count is 169. ASSESSMENT AND PLAN: 1. Nonoliguric acute kidney injury with previous baseline creatinine of 0.83 mg/dL. Etiology of acu te kidney injury is likely secondary to cardiorenal syndrome. The patient's 2D echo shows dilated in ferior vena cava consistent with elevated right arterial pressure and ejection fraction of 10%. Thes e findings are consistent with cardiorenal pathophysiology. Recommendation is to continue current di uretic regimen of Lasix 40 mg IV b.i.d. We will monitor I's and O's closely. We will also check UA with microanalysis. Check urine electrolytes to rule out other etiologies. Monitor closely. 2. Hypokalemia. We will replete with potassium chloride. Consider starting the patient on potassiu m sparing diuretics which is Aldactone. 3. Anemia. Monitor hemoglobin and hematocrit levels. 4. Mineral bone disorder. Monitor calcium and phosphatase levels. 5. Acute on chronic systolic heart failure. The patient's ejection fraction is 10%. The patient re perla decompensated. Continue current diuretic regimen. Defer SOHAIL inhibitor at this time. 6. Atrial fibrillation. Continue medical management. 7. Hypertension. Blood pressure is controlled. I agree with holding SOHAIL inhibitor until renal func tion stabilizes. 7. Dyslipidemia. Continue statin therapy. 8. Acute hypoxic respiratory failure secondary to congestive heart failure. The patient is clinical ly improving. Continue medical management as stated above. Dictated By: [employer]ANTOINETTE Conf#: [id number] DID#: [id number] CC: WILIAN BAILEY MD; GUSTAVO GIANG MD;*End*
[2018-02-24] MEDS: RIVAROXABAN 20 MG TABLET PO SCH (17:11)
--- NOTE | 2018-02-24 18:53 | NUR ---
EOSS: PT HAS PHYS TX. GOT SOB AT END. STILL IN A-FIB ON MONITOR. ALL NEEDS MET.CONTINUE POC.
[2018-02-24] MEDS: ATORVASTATIN 40 MG TAB PO SCH (21:18)
[2018-02-25] VITALS (12 sets, daily range): BP systolic 101–139; BP diastolic 54–77; PULSE 66–186; RESP 19–22
[2018-02-25] MEDS: FUROSEMIDE 40 MG INJ IV SCH (05:25)
--- NOTE | 2018-02-25 06:45 | NUR ---
EOSS: PATIENT IS A/O X3, VSS, A FIB ON THE MONITOR, NO C/O CP BUT DOES EXPERIENCE ORTHOPNEA AND SOB, NO ACUTE EVENTS OVER NIGHT. PATIENT IS CLEAN AND DRY, HAS CALL LIGHT IN REACH, REFUSING BED ALARM, BED IN LOWEST POSITION, NON-SLIP SOCKS ON, AND ROOM IS CLUTTER FREE. CONTINUE POC, WILL ENDORSE TO DAY SHIFT RN.
[2018-02-25] MEDS: MULTIVITAMINS THERAPEUTIC TAB PO SCH (08:15)
[2018-02-25] MEDS: ASPIRIN 81 MG TAB PO SCH (08:15)
[2018-02-25] MEDS: ALLOPURINOL 300 MG TAB PO SCH (08:16)
[2018-02-25] MEDS ORDERED: ALBUTEROL/IPRATROPIUM (NEB) 3 ML AMP HHN PRN (09:30)
[2018-02-25] MEDS: BUDESONIDE (NEB) 0.5MG/2ML AMP HHN SCH ×3 (10:00→20:01)
[2018-02-25] MEDS: DIGOXIN 0.125 MG TAB PO SCH (12:33)
--- NOTE | 2018-02-25 12:58 | PN ---
Date/Time of Note Date/Time of Note DATE: 02/25/18 TIME: 12:57 Objective Vitals Vital Signs Date Temp Pulse Resp B/P (MAP) Pulse Ox O2 O2 Flow FiO2 Time Delivery Rate 02/25/18 80 12:00 02/25/18 98.0 20 109/77 100 Nasal 11:05 (88) Cannula 02/25/18 2.0 07:50 Intake and Output 02/24/18 02/24/18 02/25/18 1515:00 23:00 07:00 IntakeIntake Total 1800 ml 700 ml OutputOutput Total 1200 ml 1350 ml BalanceBalance 600 ml -650 ml Results Result Diagram: 02/25/18 0502/25/18 05 Medications Medications Current Medications Nitroglycerin (Nitroglycerin (Sl Tab) 0.4 Mg) 1 tab Q5M UP TO 3 DOSES PRN SL CHEST PAIN; Start 02/23/18 at 12:00 Atorvastatin Calcium (Lipitor) 40 mg QHS PO Last administered on 02/24/18at 21:18; Admin Dose 40 MG; Start 02/23/18 at 21:00 Carvedilol (Coreg) 6.25 mg BID PO Last administered on 02/24/18at 21:18; Admin Dose 6.25 MG; Start 02/23/18 at 21:00 Digoxin (Digoxin) 0.125 mg DAILY@1300 PO Last administered on 02/25/18at 12:33; Admin Dose 0.125 MG; Start 02/24/18 at 13:00 Multivitamins Therapeutic (Theragran) 1 tab DAILY PO Last administered on 1 04/28/17at 08:15; Admin Dose 1 TAB; Start 02/24/18 at 09:00 Rivaroxaban (Xarelto) 20 mg WITH DINNER PO Last administered on 02/24/18at 17:11; Admin Dose 20 MG; Start 02/23/18 at 18:00 IV Flush (NS 3 ml) 3 ml PER PROTOCOL IV ; Start 02/23/18 at 14:00 Ondansetron HCl (Zofran Inj) 4 mg Q6H PRN IV NAUSEA AND/OR VOMITING; Start 02/23/18 at 14:00 Acetaminophen (Tylenol Tab) 650 mg Q6H PRN PO PAIN LEVEL 1-3 OR FEVER; Start 02/23/18 at 14:00 Acetaminophen/ Hydrocodone Bitart ([place] (5/325)) 1 tab Q6H PRN PO PAIN LEVEL 4-6; Start 02/23/18 at 14:00 Aspirin (Aspirin) 81 mg DAILY PO Last administered on 02/25/18at 08:15; Admin Dose 81 MG; Start 02/24/18 at 09:00 Allopurinol (Zyloprim) 300 mg DAILY PO Last administered on 02/25/18at 08:16; Admin Dose 300 MG; Start 02/25/18 at 09:00 Bumetanide (Bumex) 1 mg BID DIURETICS PO ; Start 02/25/18 at 18:00 Albuterol/ Ipratropium (Duoneb) 3 ml Q6HWA RESP THERAPY HHN ; Start 02/25/18 at 14:00 Albuterol/ Ipratropium (Duoneb) 3 ml Q2H RESP THERAPY PRN HHN shortness of breath; Start 02/25/18 at 09:30 Budesonide (Pulmicort (Neb)) 0.5 mg BID RESP THERAPY HHN ; Start 02/25/18 at 10:00 VTE Prophylaxis Risk score (from [facility])>0 risk: 3 SCD applied (from Ns): No SCD contraindication: other Lines/Catheters IV Catheter Type: Palacios in Place: No Assessment/Plan Hospital Course subjective patient had a better night Objective Physical exam General: Patient is laying in bed and answers questions appropriately Mentation: Patient is alert and oriented 4, Head: Normocephalic atraumatic Eyes: EOMI, pupils reactive to light Neck: Supple, nontender, midline Respiratory: Clear to auscultation bilaterally Cardiovascular: regular rate, no obvious murmurs Gastrointestinal: non-tender to palpation, bowel sounds heard. Neurological: Moves all extremities spontaneously Skin: No new skin lesions Assessment and plan Acute hypoxic respiratory distress -Secondary to noncompliance of oxygen therapy, however this is not patient's fall, supplies were not delivered -patient has CHF with ejection fraction of 10% -Place patient on nasal cannula -Patient comfortable -resolving Acute on chronic systolic congestive heart failure, EF of 10% -Cardiology has been consulted -Restart patient's home medications, defer to cardiology for any changes and recommendations -diruetics changed to bumex po A. fib -Patient on Xarelto -Continue home meds Hypertension -Continue home meds Dyslipidemia -Continue home meds Bleeding left leg -very small cut, -Already stopped bleeding -Bilateral ultrasound as patient stated that swelling was because of the cut Acute kidney injury -Nephrology consulted leg/foot cramps -resolved Disposition -case management states patient does not have home o2 anymore, will trial patient for need of home O2 and if needed, will provide before DC. GUSTAVO GIANG Feb 25, 2018 12:58
--- NOTE | 2018-02-25 13:18 | PN ---
DATE: 02/25/2018 SUBJECTIVE: The patient is stable. No events overnight. No fevers, chills, nausea, vomiting. OBJECTIVE: VITAL SIGNS: Blood pressure is 100/73, respiration is 20, pulse 88, temperature 98.0. HEENT: Head is normocephalic. NECK: Supple. HEART: Regular rate. LUNGS: Show diminished breath sounds at the base. ABDOMEN: Soft, nontender to palpation. No rebound or guarding. EXTREMITIES: Negative for clubbing, cyanosis. No edema. DERMATOLOGIC: No rashes. MUSCULOSKELETAL: No joint effusion. NEUROLOGIC: No change in exam. MEDICATIONS: Reviewed. LABORATORY DATA: Shows sodium 142, potassium 3.6, BUN of 38, creatinine 1.24. White count 7.5, hemo globin 12.6. Platelet count is 159. ASSESSMENT AND PLAN: 1. Nonoliguric acute kidney injury with previous baseline creatinine of 0.83 mg/dL. Etiology of acu te kidney injury is secondary to cardiorenal syndrome. The patient's renal function has been improvi ng on diuretic therapy. The patient appears to be near-euvolemic status. Will deescalate intravenou s Lasix to oral Bumex. Will monitor closely. 2. Hyperkalemia, improved. Continue to monitor and replete. 3. Anemia. Monitor hemoglobin and hematocrit levels. 4. Mineral bone disorder. Monitor calcium and phosphorus levels. 5. [id number] heart failure. The patient has an ejection fraction of 10%. The patient is cli nically improving, near-euvolemic status. Will deescalate diuretic regimen. Continue to monitor. 6. Atrial fibrillation. Continue medical management. 7. Hypertension. Blood pressure is well controlled. Continue to monitor. Holding angiotensin-conv erting enzyme inhibitor at this time. 8. Dyslipidemia. Continue statin therapy. 9. Acute hypoxic respiratory failure. The patient is clinically improving. Continue current treatm ent plan as stated above. Dictated By: [employer]ANTOINETTE Conf#: [id number] DID#: [id number] CC: GUSTAVO GIANG MD;*EndCC*
[2018-02-25] MEDS: ALBUTEROL/IPRATROPIUM (NEB) 3 ML AMP HHN SCH ×2 (13:50→20:01)
[2018-02-25] MEDS: RIVAROXABAN 20 MG TABLET PO SCH (17:27)
--- NOTE | 2018-02-25 18:23 | NUR ---
EOSS: PT HAVE BEEN OFF O2 THIS AFTERNOON, SAT 96%. A-FIB CONTROLLED , ASYMPTOMATIC.INSTRUCTED TO LIMIT FLUID INTAKE. ALL NEEDS MET .CONTINUE POC.
[2018-02-25] MEDS: BUMETANIDE 1 MG TAB PO SCH (18:33)
--- NOTE | 2018-02-25 18:35 | CONS ---
Date/Time of Note Date/Time of Note DATE: 02/25/18 TIME: 18:33 Assessment/Plan Assessment/Plan Chief Complaint/Hosp Course Assessment: Acute on chronic systolic heart failure - echocardiogram showed LVEF 10%, mild to moderate MR, RVSP 46 mmHg, IVC consistent with elevated right atrial pressure; now improved with diuresis and appears close to euvolemic Nonischemic cardiomyopathy, LVEF 10% Chronic atrial fibrillation Dyslipidemia Acute kidney injury Left lower extremity bleeding - thought secondary to small cut wound, bleeding has now resolved Recommendations: -intravenous diuretics has been discontinued, and patient has been transitioned to Bumex 1mg PO BID -continue carvedilol 6.25mg BID -holding lisinopril, resume when renal function stabilized -continue digoxin 0.125mg daily -continue Xarelto 20mg daily -as outpatient, will need continued cardiology follow up to work up for primary prevention ICD and possibly advanced heart failure therapies Consultation Date/Type/Reason Admit Date/Time Feb 24, 2018 at 10:40 Initial Consult Date Type of Consult Cardiology 24 HR Interval Summary Free Text/Dictation Orthopnea and lower extremity edema improved. Detailed Summary Additional Comments 14 point review of systems without changes. Exam/Review of Systems Vital Signs Vitals Vital Signs Date Temp Pulse Resp B/P (MAP) Pulse Ox O2 O2 Flow FiO2 Time Delivery Rate 02/25/18 94 16:00 02/25/18 98.0 20 105/65 100 15:09 (78) 02/25/18 Nasal 11:05 Cannula 02/25/18 2.0 07:50 Intake and Output 02/24/18 02/24/18 02/25/18 1414:59 22:59 06:59 IntakeIntake Total 1800 ml 700 ml OutputOutput Total 1200 ml 1350 ml BalanceBalance 600 ml -650 ml Exam Constitutional: alert, well developed Psych: no complaints, nl mood/affect Head: normocephalic, atraumatic Eyes: nl conjunctiva, nl lids ENMT: nl external ears & nose, nl nasal mucosa & septum Neck: supple, non-tender, jvd Respiratory: clear to auscultation Cardiovascular: irregular rhythm Gastrointestinal: soft, non-tender Musculoskeletal: swelling Extremities: edema; No cyanosis, No clubbing Neurological: nl mental status, nl speech WILIAN BAILEY MD Feb 25, 2018 18:35
[2018-02-25] MEDS: ATORVASTATIN 40 MG TAB PO SCH (20:47)
[2018-02-26] VITALS (12 sets, daily range): BP systolic 97–136; BP diastolic 59–90; PULSE 42–128; RESP 18–20
[2018-02-26] MEDS: BUMETANIDE 1 MG TAB PO SCH ×2 (05:11→17:04)
--- NOTE | 2018-02-26 05:17 | NUR ---
SpO2 while resting, on room air: 95-99% SpO2 while ambulating, on room air: 85-88%
--- NOTE | 2018-02-26 06:34 | NUR ---
EOSS N: A&Ox4, unremarkable CV: A-fib, HR 60s (resting) to 120s (ambulating). Digoxin, Coreg. R: SOB at rest. On and off face mask 6 L/min. Desaturates to mid 80s on room air while ambulating. GI: Cardiac : Urinal at bedside Transitioned to Bumex PO. Uneventful night. All of patient's needs attended to. will endorse care to AM nurse.
[2018-02-26] MEDS: ALLOPURINOL 300 MG TAB PO SCH (08:17)
[2018-02-26] MEDS: ASPIRIN 81 MG TAB PO SCH (08:18)
[2018-02-26] MEDS: MULTIVITAMINS THERAPEUTIC TAB PO SCH (08:18)
[2018-02-26] MEDS ORDERED: POTASSIUM CHLORIDE (SR) 20 MEQ TAB PO STA (08:54)
[2018-02-26] MEDS: BUDESONIDE (NEB) 0.5MG/2ML AMP HHN SCH ×2 (09:10→20:40)
[2018-02-26] MEDS: ALBUTEROL/IPRATROPIUM (NEB) 3 ML AMP HHN SCH ×3 (09:10→20:40)
[2018-02-26] MEDS ORDERED: POTASSIUM CHLORIDE 20 MEQ POWDER FOR ORAL SOLN PO ONE (09:30)
--- NOTE | 2018-02-26 11:53 | PN ---
Date/Time of Note Date/Time of Note DATE: 02/26/18 TIME: 11:53 Objective Vitals Vital Signs Date Temp Pulse Resp B/P (MAP) Pulse Ox O2 O2 Flow FiO2 Time Delivery Rate 02/26/18 98.0 94 20 106/74 99 11:42 (85) 02/26/18 Simple 6.0 07:28 Mask Intake and Output 02/25/18 02/25/18 02/26/18 1515:00 23:00 07:00 IntakeIntake Total 1300 ml 900 ml OutputOutput Total 1800 ml 750 ml BalanceBalance -500 ml 150 ml Results Result Diagram: 02/25/18 0525 02/26/18 0452 Medications Medications Current Medications Nitroglycerin (Nitroglycerin (Sl Tab) 0.4 Mg) 1 tab Q5M UP TO 3 DOSES PRN SL CHEST PAIN; Start 02/23/18 at 12:00 Atorvastatin Calcium (Lipitor) 40 mg QHS PO Last administered on 02/25/18at 2 0:47; Admin Dose 40 MG; Start 02/23/18 at 21:00 Carvedilol (Coreg) 6.25 mg BID PO Last administered on 02/24/18at 21:18; Admin Dose 6.25 MG; Start 02/23/18 at 21:00 Digoxin (Digoxin) 0.125 mg DAILY@1300 PO Last administered on 02/25/18at 12:33; Admin Dose 0.125 MG; Start 02/24/18 at 13:00 Multivitamins Therapeutic (Theragran) 1 tab DAILY PO Last administered on 02/26/18at 08:18; Admin Dose 1 TAB; Start 02/24/18 at 09:00 Rivaroxaban (Xarelto) 20 mg WITH DINNER PO Last administered on 02/25/18at 17:27; Admin Dose 20 MG; Start 02/23/18 at 18:00 IV Flush (NS 3 ml) 3 ml PER PROTOCOL IV ; Start 02/23/18 at 14:00 Ondansetron HCl (Zofran Inj) 4 mg Q6H PRN IV NAUSEA AND/OR VOMITING; Start 02/23/18 at 14:00 Acetaminophen (Tylenol Tab) 650 mg Q6H PRN PO PAIN LEVEL 1-3 OR FEVER; Start 1 04/26/17 at 14:00 Acetaminophen/ Hydrocodone Bitart ([place] (5/325)) 1 tab Q6H PRN PO PAIN LEVEL 4-6; Start 02/23/18 at 14:00 Aspirin (Aspirin) 81 mg DAILY PO Last administered on 02/26/18at 08:18; Admin Dose 81 MG; Start 02/24/18 at 09:00 Allopurinol (Zyloprim) 300 mg DAILY PO Last administered on 02/26/18at 08:17; Admin Dose 300 MG; Start 02/25/18 at 09:00 Bumetanide (Bumex) 1 mg BID DIURETICS PO Last administered on 02/26/18at 05:11; Admin Dose 1 MG; Start 02/25/18 at 18:00 Albuterol/ Ipratropium (Duoneb) 3 ml Q6HWA RESP THERAPY HHN Last administered on 02/26/18at 09:10; Admin Dose 3 ML; Start 02/25/18 at 14:00 Albuterol/ Ipratropium (Duoneb) 3 ml Q2H RESP THERAPY PRN HHN shortness of breath; Start 02/25/18 at 09:30 Budesonide (Pulmicort (Neb)) 0.5 mg BID RESP THERAPY HHN Last administered on 02/26/18at 09:10; Admin Dose 0.5 MG; Start 02/25/18 at 10:00 VTE Prophylaxis Risk score (from Nsg)>0 risk: 2 SCD applied (from Nsg): No SCD contraindication: other Lines/Catheters IV Catheter Type: [place] in Place: No Assessment/Plan Hospital Course subjective no acute complaints Objective Physical exam General: Patient is laying in bed and answers questions appropriately Mentation: Patient is alert and oriented 4, Head: Normocephalic atraumatic Eyes: EOMI, pupils reactive to light Neck: Supple, nontender, midline Respiratory: Clear to auscultation bilaterally Cardiovascular: regular rate, no obvious murmurs Gastrointestinal: non-tender to palpation, bowel sounds heard. Neurological: Moves all extremities spontaneously Skin: No new skin lesions Assessment and plan Acute hypoxic respiratory distress -Secondary to noncompliance of oxygen therapy, however this is not patient's fall, supplies were not delivered -patient has CHF with ejection fraction of 10% -Place patient on nasal cannula -Patient comfortable -resolving Acute on chronic systolic congestive heart failure, EF of 10% -Cardiology has been consulted -Restart patient's home medications, defer to cardiology for any changes and recommendations -diruetics changed to bumex po A. fib -Patient on Xarelto -Continue home meds Hypertension -Continue home meds Dyslipidemia -Continue home meds Bleeding left leg -very small cut, -Already stopped bleeding -Bilateral ultrasound as patient stated that swelling was because of the cut Acute kidney injury -Nephrology consulted leg/foot cramps -resolved Disposition -case management states patient does not have home o2 anymore, will trial patient for need of home O2 and if needed, will provide before DCGUSTAVO COSTELLO Feb 26, 2018 11:53
--- NOTE | 2018-02-26 12:47 | PN ---
DATE: 02/26/2018 SUBJECTIVE: The patient stable. Mild shortness of breath. No fevers or chills. OBJECTIVE: VITAL SIGNS: Blood pressure is 110/72, pulse 102, respiration 19, temperature 98.3. HEENT: Head is normocephalic. NECK: Supple. HEART: Regular rate. LUNGS: Show diminished breath sounds at the base. ABDOMEN: Soft, nontender to palpation without rebound or guarding. EXTREMITIES: Negative for clubbing, cyanosis. Trace edema. DERMATOLOGIC: No rashes. MUSCULOSKELETAL: No joint effusion. NEUROLOGIC: No change in exam. MEDICATIONS: Have been reviewed. LABORATORY DATA: Show sodium 141, potassium 3.4, chloride 97, BUN 25, creatinine 1.09. ASSESSMENT AND PLAN: 1. Nonoliguric kidney injury with previous baseline creatinine of 0.83 mg/dL. Etiology of acute kid neo injury is secondary to cardiorenal syndrome. Renal functions improved on diuretic therapy. Cont inue Bumex. 2. Hypokalemia. We will replete with potassium chloride. 3. Anemia. Monitor hemoglobin and hematocrit levels. 4. Mineral bone disorder. Monitor calcium and phosphatase levels. 5. Acute on chronic heart failure. The patient is clinically improving. Continue current diuretic regimen. 6. Atrial fibrillation. Continue medical management. 7. Hypertension. Blood pressure is well controlled. Continue current medical management. 8. Dyslipidemia. Continue statin therapy. 9. Acute hypoxic respiratory failure, improving. Continue current treatment plan as stated above. Dictated By: CATA GUERRERO DO NR/NTS Conf#: [id number] DID#: [id number] CC: GUSTAVO GIANG MD; WILIAN BAILEY MD;*EndCC*
[2018-02-26] MEDS: DIGOXIN 0.125 MG TAB PO SCH (13:48)
[2018-02-26] MEDS: RIVAROXABAN 20 MG TABLET PO SCH (17:04)
--- NOTE | 2018-02-26 17:52 | CONS ---
Date/Time of Note Date/Time of Note DATE: 02/26/18 TIME: 17:51 Assessment/Plan Assessment/Plan Chief Complaint/Hosp Course Assessment: Acute on chronic systolic heart failure - echocardiogram showed LVEF 10%, mild to moderate MR, RVSP 46 mmHg, IVC consistent with elevated right atrial pressure; now improved with diuresis and appears close to euvolemic Nonischemic cardiomyopathy, LVEF 10% Chronic atrial fibrillation Dyslipidemia Acute kidney injury Left lower extremity bleeding - thought secondary to small cut wound, bleeding has now resolved Recommendations: -continue Bumex 1mg PO BID -continue carvedilol 6.25mg BID -holding lisinopril, resume when renal function stabilized -continue digoxin 0.125mg daily -continue Xarelto 20mg daily -discharge planning, patient may need home oxygen -as outpatient, will need continued cardiology follow up to work up for primary prevention ICD and possibly advanced heart failure therapies Consultation Date/Type/Reason Admit Date/Time Feb 24, 2018 at 10:40 Initial Consult Date Type of Consult Cardiology 24 HR Interval Summary Free Text/Dictation No acute events. Detailed Summary Additional Comments 14 point review of systems without changes. Exam/Review of Systems Vital Signs Vitals Vital Signs Date Temp Pulse Resp B/P (MAP) Pulse Ox O2 O2 Flow FiO2 Time Delivery Rate 02/26/18 6.0 16:31 02/26/18 95 16:00 02/26/18 97.8 18 106/71 92 15:14 (83) 02/26/18 Simple 09:11 Mask Intake and Output 02/25/18 02/25/18 02/26/18 1515:00 23:00 07:00 IntakeIntake Total 1300 ml 900 ml OutputOutput Total 1800 ml 750 ml BalanceBalance -500 ml 150 ml Exam Constitutional: alert, well developed Psych: no complaints, nl mood/affect Head: normocephalic, atraumatic Eyes: nl conjunctiva, nl lids ENMT: nl external ears & nose, nl nasal mucosa & septum Neck: supple, non-tender, jvd Respiratory: clear to auscultation Cardiovascular: irregular rhythm Gastrointestinal: soft, non-tender Musculoskeletal: swelling Extremities: edema; No cyanosis, No clubbing Neurological: nl mental status, nl speech WILIAN BAILEY MD Feb 26, 2018 17:52
--- NOTE | 2018-02-26 18:42 | NUR ---
EOSS: PT ON O2 6L VIA SIMPLE MASK. WHEN AMBULATING DESATURATION NOTED. ENCOURAGED TO KEEP O2 ON. ALL NEEDS MET. CONTINUE POC.
[2018-02-26] MEDS: ATORVASTATIN 40 MG TAB PO SCH (21:04)
[2018-02-27] VITALS (14 sets, daily range): BP systolic 90–128; BP diastolic 61–83; PULSE 44–125; RESP 17–20
[2018-02-27] MEDS: BUMETANIDE 1 MG TAB PO SCH ×2 (06:14→17:20)
--- NOTE | 2018-02-27 07:36 | NUR ---
RN END OF SHIFT NOTE PATIENT ALERT AND ORIENTED X 4, DENIED PAIN AND SLEPT WELL LAST NIGHT. MEDS GIVEN SCHEDULED, AMBULATES WITH STEADY GAIT, ON O2 6L SIMPLE MASK, HOWEVER PATIENT IS ON ROOM AIR MOST OF THE TIME AND SATS 99%, DESATURATES WHEN HE AMBULATES IN THE [address]. PATIENT ABLE TO TURN SELF. BED IN TH LOWEST POSITION WITH BRAKES ENGAGED. HOURLY ROUNDING AND BED ALARM IN PLACE. ENDORSED TO DAY SHIFT RN.
[2018-02-27] MEDS: ALBUTEROL/IPRATROPIUM (NEB) 3 ML AMP HHN SCH ×3 (08:27→20:40)
[2018-02-27] MEDS: BUDESONIDE (NEB) 0.5MG/2ML AMP HHN SCH ×2 (08:37→20:40)
[2018-02-27] MEDS: ALLOPURINOL 300 MG TAB PO SCH (08:54)
[2018-02-27] MEDS: MULTIVITAMINS THERAPEUTIC TAB PO SCH (08:54)
[2018-02-27] MEDS: ASPIRIN 81 MG TAB PO SCH (08:54)
[2018-02-27] MEDS ORDERED: POTASSIUM CHLORIDE (SR) 20 MEQ TAB PO STA (09:00)
--- NOTE | 2018-02-27 09:04 | PN ---
Date/Time of Note Date/Time of Note DATE: 02/27/18 TIME: 09:04 Assessment/Plan VTE Prophylaxis Risk score (from Ns)>0 risk: 2 SCD applied (from [facility] [place]): No SCD contraindicated: patient refusal Pharmacological prophylaxis: rivaroxaban Lines/Catheters IV Catheter Type (from [facility] [place] Urinary Cath still in place: No Assessment/Plan Assessment/Plan 1. Acute hypoxic respiratory distress- improving - Patient will need home O2 prior to discharge given he has been noted to desaturate with ambulation - Has HF with ejection fraction of 10% and will need outpatient assessment for ICD 2. Acute on chronic systolic congestive heart failure, EF of 10% - Cardiology on board and continue medical management - On bumex and diuresing well - Will need outpatient follow up for ICD evaluation 3. A. fib- stable - Continue on BB and Xarelto 4. Hypertension - Continue home meds 5. Dyslipidemia - Continue home meds 6. Acute kidney injury - Nephrology on board and appreciate consultation. - renal function continues to improve and appears back to baseline 7. Disposition - on board for assistance with arranging home O2. Once receives O2, can be d/c home - FWW ordered as well Subjective 24 Hr Interval Summary Free Text/Dictation Patient states he's feeling better but still shortness of breath with ambulation. No acute overnight events. Exam/Review of Systems Vital Signs Vitals Vital Signs Date Temp Pulse Resp B/P (MAP) Pulse Ox O2 O2 Flow FiO2 Time Delivery Rate 02/27/18 59 18 100 Simple 6.0 08:27 Mask 02/27/18 98.3 98/75 (83) 07:30 Intake and Output 02/26/18 02/26/18 02/27/18 1515:00 23:00 07:00 IntakeIntake Total 800 ml 400 ml OutputOutput Total 1800 ml 1400 ml BalanceBalance -1000 ml -1000 ml Exam General: Patient is laying in bed and answers questions appropriately Eyes: EOMI, pupils reactive to light Neck: Supple, nontender, midline Respiratory: Clear to auscultation bilaterally. no wheezing or rhonchi Cardiovascular: regular rate and rhythm, no obvious murmurs Gastrointestinal: soft, non-tender to palpation, nondisplaced, bowel sounds heard. Neurological: Moves all extremities spontaneously Skin: No new skin lesions LOY STARR MD Feb 27, 2018 09:04
--- NOTE | 2018-02-27 10:35 | NUR ---
PT NOTE [facility] Patient: Madi Castillo : 1960 Age/Sex: 57/M Unit#: [id number] Room/Bed: 607/A User: Sulma Huber PTA Date: 02/27/18 10:35 Type: PT Technical Record Therapy day number 2 Subjective Current complaint of pain Pain Intensity 5 (0-10) Patient Stated Goal for Pain Relief 0 (0-10) Pain Level Comment BLEs. LLE>RLE Pre Treatment Vital Signs Stable Yes - 106/72 78bpm 100% 6L O2 Transfer Training Start Time 09:55 Supine to Sit Independent Transfer Sit to Stand Ability Stand by Assist Bed Mobility Sit to Supine Independent Bed Transfer Ability Stand by Assist Chair Transfer Ability Stand by Assist Transfer Training End Time 10:10 Total Transfer Training Time 15 min (8-127) Patient uses wheelchair Not Applicable Gait Training Start Time 10:10 Gait Assist Levels Contact Guard Assist Assistive Devices Front Wheel Walker Ambulation Distance 40 feet Additional Gait Comments 40'x4. slow, reciprocal pattern, and forward posture. Multiple rest breaks Gait Training End Time 10:35 Total Gait Training Treatment Time 25 min (8-127) Static Sitting Balance Good Dynamic Sitting Balance Good Standing Static Balance Fair plus Dynamic Standing Balance Fair plus Additional Balance Assessments Comments FWW Safety Judgement Fair Activity Tolerance Fair Additional Equipment Present 6L O2 via simple mask Post Treatment Pain Intensity 5 0-10 Quality Indicators SOB Upon Exertion Variance Documentation See comment Total Treament Time 40 min (8-127) Total Minutes 40 Total Units 3 PT Technical Record Comment PT NOTE S: THOMAS Hernandez cleared pt for PT. Pt c/o 5/10 BLEs pain LLE>RLE, however agreeable to tx O: Received pt in semifowler. See above for assist levels and pretx VS. Gait training x 40'x4 and presented with slow, reciprocal pattern, and forward posture. Required VC/TC for posture awareness and AD management. Multiple rest breaks d/t fatigue and SOB. Returned pt back to room/bed. Positioned pt to comfort in semifowler. Call light/phone within reach. Needs met. A: Fair toleranec to tx. Pt fatigues easily and required frequent rest breaks during gait training. O2 supplement applied throughout tx P: Continue w/ POC and progress as tolerated
--- NOTE | 2018-02-27 12:08 | NUR ---
Discharge planning; Attempting to arrange for DME needs for Patient; home oxygen and front wheel walker with his insurance. Contacted [facility] to find out Patient's IPA however they are under [facility] Managed Care. However coordinator will be able to help with the matter if able to fax over Patient's clinical reports. Collated paperwork and faxed to . Addendum: 02/27/18 at 1612 by MARAH SHARMA RN DME Inquiry; No call back from [facility] but took initiative to send inquiry to [employer] to further assess if they will be able to provide for Patient home oxygen and front wheel walker. Moreover Patient provided best contact phone number as well as the [employer] who helps arrange oxygen in his "building"- Gerard . Attempt to get in touch with Gerard, no answer but able to leave a message.
[2018-02-27] MEDS: DIGOXIN 0.125 MG TAB PO SCH (12:17)
--- NOTE | 2018-02-27 12:52 | PN ---
DATE: 02/27/2018 SUBJECTIVE: The patient is stable, no events overnight. OBJECTIVE: VITAL SIGNS: Blood pressure is 98/75, respiration 18, pulse 74, temperature 98.3. HEENT: Head is normocephalic. NECK: Supple. HEART: Regular rate. LUNGS: Show diminished breath sounds at the base. ABDOMEN: Soft, nontender to palpation, no rebound or guarding. EXTREMITIES: Negative for clubbing, cyanosis, no edema. DERMATOLOGIC: No rashes. MUSCULOSKELETAL: No joint effusion. NEUROLOGIC: No change in exam. MEDICATIONS: Have been reviewed. LABORATORY DATA: Has been reviewed. The patient has sodium 141, potassium 3.6, BUN 37, creatinine 1 .02. ASSESSMENT AND PLAN: 1. Nonoliguric acute kidney injury with previous baseline creatinine 0.83 mg per deciliter. Etiology of KRISTINE is secondary to cardiorenal syndrome. Renal functions improved. Continue current medical ma nagement. 2. Hypokalemia, improved. 3. Anemia. Monitor hemoglobin and hematocrit levels. 4. Acute on chronic heart failure. The patient is clinically improving. Continue current diuretic regimen. Follow up with cardiology. 5. Atrial fibrillation. Continue current medical management. 6. Hypertension. Continue current blood pressure regimen. 7. Dyslipidemia. Continue statin therapy. 8. Acute hypoxemic respiratory failure, improving. Continue current treatment plan. Dictated By: CATA GUERRERO DO NR/NTS Conf#: [id number] DID#: [id number] CC: GUSTAVO GIANG MD; WILIAN BAILEY MD;*EndCC*
--- NOTE | 2018-02-27 16:31 | CONS ---
Date/Time of Note Date/Time of Note DATE: 02/27/18 TIME: 16:30 Assessment/Plan Assessment/Plan Chief Complaint/Hosp Course Assessment: Acute on chronic systolic heart failure - echocardiogram showed LVEF 10%, mild to moderate MR, RVSP 46 mmHg, IVC consistent with elevated right atrial pressure; now improved with diuresis and appears close to euvolemic Nonischemic cardiomyopathy, LVEF 10% Chronic atrial fibrillation Dyslipidemia Acute kidney injury Left lower extremity bleeding - thought secondary to small cut wound, bleeding has now resolved Recommendations: -continue Bumex 1mg PO BID -continue carvedilol 6.25mg BID -holding lisinopril, resume when renal function stabilized -continue digoxin 0.125mg daily -continue Xarelto 20mg daily -discharge planning, setting up home oxygen -as outpatient, will need continued cardiology follow up to work up for primary prevention ICD and possibly advanced heart failure therapies Consultation Date/Type/Reason Admit Date/Time Feb 24, 2018 at 10:40 Initial Consult Date Type of Consult Cardiology 24 HR Interval Summary Free Text/Dictation No acute events. Detailed Summary Additional Comments 14 point review of systems without changes. Exam/Review of Systems Vital Signs Vitals Vital Signs Date Temp Pulse Resp B/P (MAP) Pulse Ox O2 O2 Flow FiO2 Time Delivery Rate 02/27/18 98.6 82 18 115/71 98 15:16 (86) 02/27/18 Simple 6.0 13:51 Mask Intake and Output 02/26/18 02/26/18 02/27/18 1515:00 23:00 07:00 IntakeIntake Total 800 ml 400 ml OutputOutput Total 1800 ml 1400 ml BalanceBalance -1000 ml -1000 ml Exam Constitutional: alert, well developed Psych: no complaints, nl mood/affect Head: normocephalic, atraumatic Eyes: nl conjunctiva, nl lids ENMT: nl external ears & nose, nl nasal mucosa & septum Neck: supple, non-tender, jvd Respiratory: clear to auscultation Cardiovascular: irregular rhythm Gastrointestinal: soft, non-tender Musculoskeletal: swelling Extremities: edema; No cyanosis, No clubbing Neurological: nl mental status, nl speech Medications Medications Current Medications Atorvastatin Calcium (Lipitor) 40 mg QHS PO Last administered on 02/26/18at 21: 04; Admin Dose 40 MG; Start 02/23/18 at 21:00 Carvedilol (Coreg) 6.25 mg BID PO Last administered on 02/26/18 21:04; Admin Dose 6.25 MG; Start 02/23/18 at 21:00 Digoxin (Digoxin) 0.125 mg DAILY@1300 PO Last administered on 02/27/18 12:17; Admin Dose 0.125 MG; Start 02/24/18 at 13:00 Multivitamins Therapeutic (Theragran) 1 tab DAILY PO Last administered on 02/27/18 08:54; Admin Dose 1 TAB; Start 02/24/18 at 09:00 Rivaroxaban (Xarelto) 20 mg WITH DINNER PO Last administered on 02/26/18 17:04; Admin Dose 20 MG; Start 02/23/18 at 18:00 IV Flush (NS 3 ml) 3 ml PER PROTOCOL IV ; Start 02/23/18 at 14:00 Ondansetron HCl (Zofran Inj) 4 mg Q6H PRN IV NAUSEA AND/OR VOMITING; Start 02/23/18 at 14:00 Acetaminophen (Tylenol Tab) 650 mg Q6H PRN PO PAIN LEVEL 1-3 OR FEVER; Start 02/23/18 at 14:00 Acetaminophen/ Hydrocodone Bitart ([place] (5/325)) 1 tab Q6H PRN PO PAIN LEVEL 4-6; Start 02/23/18 at 14:00 Aspirin (Aspirin) 81 mg DAILY PO Last administered on 02/27/18 08:54; Admin Dose 81 MG; Start 02/24/18 at 09:00 Allopurinol (Zyloprim) 300 mg DAILY PO Last administered on 02/27/18 08:54; Admin Dose 300 MG; Start 02/25/18 at 09:00 Bumetanide (Bumex) 1 mg BID DIURETICS PO Last administered on 02/27/18 06:14; Admin Dose 1 MG; Start 02/25/18 at 18:00 Albuterol/ Ipratropium (Duoneb) 3 ml Q6HWA RESP THERAPY HHN Last administered on 02/27/18 13:50; Admin Dose 3 ML; Start 02/25/18 at 14:00 Albuterol/ Ipratropium (Duoneb) 3 ml Q2H RESP THERAPY PRN HHN shortness of breath; Start 02/25/18 at 09:30 Budesonide (Pulmicort (Neb)) 0.5 mg BID RESP THERAPY HHN Last administered on 02/27/18at 08:37; Admin Dose 0.5 MG; Start 02/25/18 at 10:00 WILIAN BAILEY MD Feb 27, 2018 16:31
[2018-02-27] MEDS: RIVAROXABAN 20 MG TABLET PO SCH (17:20)
--- NOTE | 2018-02-27 18:17 | NUR ---
EOSS Pt ao x 4 and stable at this time. Pt in no distress noted throughout the shift. Pt updated regarding plan of care. Pt worked with PT and noted SOB upon exertion, however overall tolerated well. Call light within reach. Hourly rounding provided. Will endorse to next shift accordingly.
[2018-02-27] MEDS: ATORVASTATIN 40 MG TAB PO SCH (20:51)
[2018-02-28] VITALS (12 sets, daily range): BP systolic 105–121; BP diastolic 66–83; PULSE 53–182; RESP 18–22
[2018-02-28] MEDS: BUMETANIDE 1 MG TAB PO SCH ×2 (05:06→17:20)
--- NOTE | 2018-02-28 06:33 | NUR ---
RN END OF SHIFT NOTE PATIENT ALERT AND ORIENTED X 4, DENIED PAIN AND SLEPT WELL LAST NIGHT. MEDS GIVEN SCHEDULED, AMBULATES WITH STEADY GAIT, ON O2 6L SIMPLE MASK, ON ROOM AIR MOST OF THE TIME AND SATS 99%, DESATURATES WHEN AMBULATING. PATIENT ABLE TO TURN SELF. BED IN THE LOWEST POSITION WITH BRAKES ENGAGED. HOURLY ROUNDING AND BED ALARM IN PLACE. WILL ENDORSE TO DAY SHIFT RN.
[2018-02-28] MEDS: MULTIVITAMINS THERAPEUTIC TAB PO SCH (08:28)
[2018-02-28] MEDS: ASPIRIN 81 MG TAB PO SCH (08:29)
[2018-02-28] MEDS: ALLOPURINOL 300 MG TAB PO SCH (08:29)
--- NOTE | 2018-02-28 08:31 | PN ---
Date/Time of Note Date/Time of Note DATE: 02/28/18 TIME: 08:31 Assessment/Plan VTE Prophylaxis Risk score (from Ns)>0 risk: 3 SCD applied (from [facility] [place]): No SCD contraindicated: patient refusal Pharmacological prophylaxis: rivaroxaban Lines/Catheters IV Catheter Type (from [facility] Saline Lock Urinary Cath still in place: No Assessment/Plan Assessment/Plan 1. Acute hypoxic respiratory distress- resolving - Patient doing well at rest but desaturates with ambulation and noticeably short of breath - Has HF with ejection fraction of 10% and will need outpatient assessment for ICD 2. Acute on chronic systolic congestive heart failure, EF of 10% - Cardiology on board and continue medical management - On bumex and diuresing well - Will need outpatient follow up for ICD evaluation 3. A. fib - HR was fluctuation last night with max of 180s and low of 60 - Continue on BB and Xarelto - Cardiology on board and appreciate recommendations 4. Hypertension - Continue home meds 5. Dyslipidemia - Continue home meds 6. Acute kidney injury - Nephrology on board and appreciate consultation. - renal function at baseline 7. Disposition - Once O2 arrangements finalized and HR remains stable, will d/c home Result Diagram: 02/25/18 0525 02/28/18 0539 Results 24hrs Laboratory Tests Test 02/28/18 05:39 Sodium Level 142 Potassium Level 3.9 Chloride Level 98 Carbon Dioxide Level 32 H Anion Gap 12 Blood Urea Nitrogen 39 H Creatinine 1.02 Glucose Level 122 Calcium Level 8.8 Phosphorus Level 3.9 Magnesium Level 2.1 Albumin 3.3 Subjective 24 Hr Interval Summary Free Text/Dictation Patient denies any issues and laughed when discussed fluctuations in his HR. Denies any dizziness, chest pain, shortness of breath, or palpitations. Still with SOB with ambulation unless on supplemental O2. Exam/Review of Systems Vital Signs Vitals Vital Signs Date Temp Pulse Resp B/P (MAP) Pulse Ox O2 O2 Flow FiO2 Time Delivery Rate 02/28/18 113 08:01 02/28/18 98.0 22 105/66 100 Room Air 07:55 (79) 02/28/18 6.0 03:01 Intake and Output 02/27/18 02/27/18 02/28/18 1414:59 22:59 06:59 IntakeIntake Total 1400 ml 400 ml OutputOutput Total 1800 ml 2150 ml BalanceBalance -400 ml -1750 ml Exam General: Patient is laying in bed and answers questions appropriately. no acute distress Neck: Supple Respiratory: Clear to auscultation bilaterally. no wheezing or rhonchi Cardiovascular: regular rate and rhythm, no obvious murmurs Gastrointestinal: soft, non-tender to palpation, nondisplaced, bowel sounds heard. Neurological: Moves all extremities spontaneously Skin: No new skin lesions Medications Medications Current Medications Atorvastatin Calcium (Lipitor) 40 mg QHS PO Last administered on 02/27/18 20:51; Admin Dose 40 MG; Start 02/23/18 at 21:00 Carvedilol (Coreg) 6.25 mg BID PO Last administered on 02/27/18 20:52; Admin Dose 6.25 MG; Start 02/23/18 at 21:00 Digoxin (Digoxin) 0.125 mg DAILY@1300 PO Last administered on 02/27/18 12:17; Admin Dose 0.125 MG; Start 02/24/18 at 13:00 Multivitamins Therapeutic (Theragran) 1 tab DAILY PO Last administered on 02/27/18 08:54; Admin Dose 1 TAB; Start 02/24/18 at 09:00 Rivaroxaban (Xarelto) 20 mg WITH DINNER PO Last administered on 02/27/18 17:20; Admin Dose 20 MG; Start 02/23/18 at 18:00 IV Flush (NS 3 ml) 3 ml PER PROTOCOL IV ; Start 02/23/18 at 14:00 Ondansetron HCl (Zofran Inj) 4 mg Q6H PRN IV NAUSEA AND/OR VOMITING; Start 02/23/18 at 14:00 Acetaminophen (Tylenol Tab) 650 mg Q6H PRN PO PAIN LEVEL 1-3 OR FEVER; Start 02/23/18 at 14:00 Acetaminophen/ Hydrocodone Bitart ([place] (5/325)) 1 tab Q6H PRN PO PAIN LEVEL 4-6; Start 02/23/18 at 14:00 Aspirin (Aspirin) 81 mg DAILY PO Last administered on 02/27/18 08:54; Admin D ose 81 MG; Start 02/24/18 at 09:00 Allopurinol (Zyloprim) 300 mg DAILY PO Last administered on 02/27/18 08:54; Admin Dose 300 MG; Start 02/25/18 at 09:00 Bumetanide (Bumex) 1 mg BID DIURETICS PO Last administered on 02/28/18at 05:06; Admin Dose 1 MG; Start 02/25/18 at 18:00 Albuterol/ Ipratropium (Duoneb) 3 ml Q6HWA RESP THERAPY HHN Last administered on 02/27/18at 20:40; Admin Dose 3 ML; Start 02/25/18 at 14:00 Albuterol/ Ipratropium (Duoneb) 3 ml Q2H RESP THERAPY PRN HHN shortness of breath; Start 02/25/18 at 09:30 Budesonide (Pulmicort (Neb)) 0.5 mg BID RESP THERAPY HHN Last administered on 02/27/18at 20:40; Admin Dose 0.5 MG; Start 02/25/18 at 10:00 LOY STARR MD Feb 28, 2018 08:31
[2018-02-28] MEDS: ALBUTEROL/IPRATROPIUM (NEB) 3 ML AMP HHN SCH ×3 (08:44→21:21)
[2018-02-28] MEDS: BUDESONIDE (NEB) 0.5MG/2ML AMP HHN SCH ×2 (09:14→21:21)
--- NOTE | 2018-02-28 12:12 | PN ---
DATE: 02/28/2018 SUBJECTIVE: The patient is stable overnight. No fevers, chills, nausea, vomiting. OBJECTIVE: VITAL SIGNS: Blood pressure is 105/66, respiration 22, pulse 60, temperature 98.0. HEENT: Head is normocephalic. NECK: Supple. HEART: Regular rate. LUNGS: Show diminished breath sounds at the base. ABDOMEN: Soft, nontender to palpation without rebound or guarding. EXTREMITIES: Negative for clubbing, cyanosis. Trace edema. DERMATOLOGIC: No rashes. MUSCULOSKELETAL: No joint effusion. NEUROLOGIC: No change in exam. MEDICATIONS: Have been reviewed. LABORATORY DATA: From 02/28/2018 was reviewed, which showed sodium 142, bicarbonate 32, BUN 39, crea tinine 1.02. ASSESSMENT AND PLAN: 1. Nonoliguric acute kidney injury with previous baseline creatinine of 0.83 mg/dL. Etiology of acu te kidney injury is secondary to cardiorenal syndrome. The patient's renal function is improving. C ontinue current treatment plan. Continue diuretic regimen. Monitor electrolytes and renal function closely. 2. Hypokalemia, improved. 3. Anemia. Monitor hemoglobin and hematocrit levels. 4. Acute on chronic systolic heart failure/cardiomyopathy. Continue current diuretic regimen. Cont inue current medical management. Follow up with cardiology. 5. Atrial fibrillation, rate controlled. Continue medical management. 6. Hypertension. Blood pressure is well controlled. Monitor closely. 7. Dyslipidemia. Continue statin therapy. 8. Hypoxemic respiratory failure. The patient is clinically improving. Dictated By: CATA GUERRERO DO NR/NTS Conf#: [id number] DID#: [id number] CC: LOY STARR MD; GUSTAVO GIANG MD; WILIAN BAILEY MD;*EndCC*
[2018-02-28] MEDS: DIGOXIN 0.125 MG TAB PO SCH (13:05)
[2018-02-28] MEDS: RIVAROXABAN 20 MG TABLET PO SCH (17:20)
--- NOTE | 2018-02-28 17:55 | NUR ---
EOSS: Pt AO X 4, Afib on tele, O2 Sat WNL, on RA most of day. Desats when ambulating. Ambulates, steady gait. No acute distress noted throughout shift. Stable for handoff to oncoming shift.
[2018-02-28] MEDS: ATORVASTATIN 40 MG TAB PO SCH (20:57)
[2018-03-01] VITALS (12 sets, daily range): BP systolic 103–115; BP diastolic 68–79; PULSE 53–107; RESP 18–20
[2018-03-01] MEDS: BUMETANIDE 1 MG TAB PO SCH ×2 (06:51→17:11)
[2018-03-01] MEDS: MULTIVITAMINS THERAPEUTIC TAB PO SCH (08:18)
[2018-03-01] MEDS: ASPIRIN 81 MG TAB PO SCH (08:18)
[2018-03-01] MEDS: ALLOPURINOL 300 MG TAB PO SCH (08:18)
--- NOTE | 2018-03-01 08:23 | PN ---
Date/Time of Note Date/Time of Note DATE: 03/01/18 TIME: 08:23 Assessment/Plan VTE Prophylaxis Risk score (from Ns)>0 risk: 1 SCD applied (from Nsg): No SCD contraindicated: low risk/ambulating Pharmacological prophylaxis: rivaroxaban Lines/Catheters IV Catheter Type (from Nrs): Saline Lock Urinary Cath still in place: No Assessment/Plan Assessment/Plan 1. Acute hypoxic respiratory distress- resolved - Patient doing well at rest. Per nursing, he desaturates to 88% on room air while ambulating. - Has HF with ejection fraction of 10% and will need outpatient assessment for ICD 2. Acute on chronic systolic congestive heart failure, EF of 10% - Cardiology on board and continue medical management - On bumex and diuresing well - Will need outpatient follow up for ICD evaluation 3. A. fib - HR fluctuates but asymptomatic - Continue on BB and Xarelto - Cardiology on board and appreciate recommendations 4. Hypertension - Continue home meds 5. Dyslipidemia - Continue home meds 6. Acute kidney injury - Nephrology on board and appreciate consultation. - renal function at baseline 7. Disposition - Discussed with CM need for O2 and nurse will document desaturations to 88% on room air while ambulating. Once arrangements made, will d/c home Result Diagram: 02/25/18 0525 03/01/18 0510 Results 24hrs Laboratory Tests Test 03/01/18 05:10 Sodium Level 142 Potassium Level 4.2 Chloride Level 99 Carbon Dioxide Level 32 H Anion Gap 11 Blood Urea Nitrogen 39 H Creatinine 1.07 Est Glomerular Filtrat Rate mL/min > 60 Glucose Level 79 # Calcium Level 9.3 Phosphorus Level 4.5 Magnesium Level 2.0 Subjective 24 Hr Interval Summary Free Text/Dictation Patient states hes feeling better this am, best he has felt since admission. Denies any new complaints. Counseled about proper diet and need for close follow up after discharge. Exam/Review of Systems Vital Signs Vitals Vital Signs Date Temp Pulse Resp B/P (MAP) Pulse Ox O2 O2 Flow FiO2 Time Delivery Rate 03/01/18 97.6 53 20 105/68 93 Room Air 07:35 (80) 03/01/18 6.0 07:29 02/28/18 21 14:21 Intake and Output 02/28/18 02/28/18 03/01/18 1414:59 22:59 06:59 IntakeIntake Total 1120 ml 1000 ml OutputOutput Total 2350 ml 2000 ml BalanceBalance -1230 ml -1000 ml Exam General: Patient is laying in bed and answers questions appropriately. no acute distress Neck: Supple Respiratory: Clear to auscultation bilaterally. no wheezing or rhonchi Cardiovascular: regular rate and rhythm, no obvious murmurs Gastrointestinal: soft, non-tender to palpation, nondisplaced, bowel sounds heard. Neurological: Moves all extremities spontaneously Skin: No new skin lesions Medications Medications Current Medications Atorvastatin Calcium (Lipitor) 40 mg QHS PO Last administered on 02/28/18at 20:57; Admin Dose 40 MG; Start 02/23/18 at 21:00 Carvedilol (Coreg) 6.25 mg BID PO Last administered on 02/28/18 20:58; Admin Dose 6.25 MG; Start 02/23/18 at 21:00 Digoxin (Digoxin) 0.125 mg DAILY@1300 PO Last administered on 02/28/18at 13:05; Admin Dose 0.125 MG; Start 02/24/18 at 13:00 Multivitamins Therapeutic (Theragran) 1 tab DAILY PO Last administered on 03/01/18at 08:18; Admin Dose 1 TAB; Start 02/24/18 at 09:00 Rivaroxaban (Xarelto) 20 mg WITH DINNER PO Last administered on 02/28/18at 17:20; Admin Dose 20 MG; Start 02/23/18 at 18:00 IV Flush (NS 3 ml) 3 ml PER PROTOCOL IV ; Start 02/23/18 at 14:00 Ondansetron HCl (Zofran Inj) 4 mg Q6H PRN IV NAUSEA AND/OR VOMITING; Start 02/23/18 at 14:00 Acetaminophen (Tylenol Tab) 650 mg Q6H PRN PO PAIN LEVEL 1-3 OR FEVER; Start 02/23/18 at 14:00 Acetaminophen/ Hydrocodone Bitart ([place] (5/325)) 1 tab Q6H PRN PO PAIN LEVEL 4-6; Start 02/23/18 at 14:00 Aspirin (Aspirin) 81 mg DAILY PO Last administered on 03/01/18at 08:18; Admin Dose 81 MG; Start 02/24/18 at 09:00 Allopurinol (Zyloprim) 300 mg DAILY PO Last administered on 03/01/18 08:18; Admin Dose 300 MG; Start 02/25/18 at 09:00 Bumetanide (Bumex) 1 mg BID DIURETICS PO Last administered on 03/01/18at 06:51; Admin Dose 1 MG; Start 02/25/18 at 18:00 Albuterol/ Ipratropium (Duoneb) 3 ml Q6HWA RESP THERAPY HHN Last administered on 02/28/18 21:21; Admin Dose 3 ML; Start 02/25/18 at 14:00 Albuterol/ Ipratropium (Duoneb) 3 ml Q2H RESP THERAPY PRN HHN shortness of breath; Start 02/25/18 at 09:30 Budesonide (Pulmicort (Neb)) 0.5 mg BID RESP THERAPY HHN Last administered on 02/28/18 21:21; Admin Dose 0.5 MG; Start 02/25/18 at 10:00 LOY STARR MD Mar 01, 2018 08:23
[2018-03-01] MEDS: BUDESONIDE (NEB) 0.5MG/2ML AMP HHN SCH ×2 (08:33→20:36)
[2018-03-01] MEDS: ALBUTEROL/IPRATROPIUM (NEB) 3 ML AMP HHN SCH ×3 (08:33→20:36)
--- NOTE | 2018-03-01 11:40 | PN ---
DATE: 03/01/2018 SUBJECTIVE: The patient is stable, no events overnight. No fevers, chills, nausea, vomiting. OBJECTIVE: VITAL SIGNS: Blood pressure is 105/68, pulse 53, respirations 20, temperature 97.6. HEENT: Head is normocephalic. NECK: Supple. HEART: Regular rate. LUNGS: Show diminished breath sounds at the base. ABDOMEN: Soft, nontender to palpation without rebound or guarding. EXTREMITIES: Negative for clubbing, cyanosis, no edema. DERMATOLOGIC: No rashes. MUSCULOSKELETAL: No joint effusion. NEUROLOGIC: No change in exam. MEDICATIONS: Have been reviewed. LABORATORY DATA: Shows sodium 142, potassium 4.29, chloride 99, BUN 39, creatinine 1.07. White coun t 7.5, hemoglobin 12.6, platelet count is 159. ASSESSMENT AND PLAN: 1. Nonoliguric acute kidney injury with previous baseline creatinine 0.83 mg/dL. Etiology of acute kidney injury is secondary to cardiorenal syndrome. The patient's renal function has improved. Cont inue current diuretic regimen and monitor renal function, electrolytes closely. 2. Hypokalemia, improved. 3. Anemia. Continue to monitor hemoglobin and hematocrit levels. 4. Acute on chronic heart failure and cardiomyopathy. Continue current diuretic regimen. 5. Atrial fibrillation, rate controlled. Continue medical management. 6. Hypertension. Continue current blood pressure regimen. 7. Dyslipidemia. Continue statin therapy. 8. Acute hypoxemic respiratory failure. The patient is clinically improving. Continue to monitor. Dictated By: CATA CLEANING/ANTOINETTE Conf#: [id number] DID#: [id number] CC: GUSTAVO GIANG MD;*EndCC*
--- NOTE | 2018-03-01 11:43 | NUR ---
PT NOTE Therapy day number 3 Subjective Current complaint of pain Pain Scale NUMERIC Pain Intensity 1 (0-10) Patient Stated Goal for Pain Relief 0 (0-10) Pain Level Comment BLE RLE>LLE Transfer Training Start Time 11:43 Transfer Sit to Stand Ability Supervised Transfer Training End Time 11:55 Total Transfer Training Time 12 min (8-127) Patient uses wheelchair Not Applicable Gait Training Start Time 11:55 Gait Assist Levels Stand by Assist Assistive Devices Front Wheel Walker Ambulation Distance 180 feet Additional Gait Comments steady gait/herman, reciprocal pattern, no LOB/buckling, flexed posture Gait Training End Time 12:28 Total Gait Training Treatment Time 33 min (8-127) Static Sitting Balance Good Dynamic Sitting Balance Good Standing Static Balance Good Dynamic Standing Balance Fair plus Additional Balance Assessments Comments FWW Safety Judgement Fair Activity Tolerance Good Additional Equipment Present 2L NC via NC Post Treatment Pain Intensity 4 0-10 Quality Indicators SOB Upon Exertion Variance Documentation SEE BELOW AND PT NOTE Total Treament Time 45 min (8-127) Total Minutes 45 Total Units 3 PT Technical Record Comment PT NOTE S: Pt stated, "My cough is just bad. A lot of stuff stuck in my lungs. I even spit out dried blood this morning." Agreeable for PT and cleared per THOMAS Lowery. O: Received pt sitting EOB. Applied gait belt. STS w/no AD pushing off bed w/BUE Supervised. Gait training performed w/FWW 200' SBA/Supervised. Noted steady gait/herman, reciprocal pattern, no LOB/buckling, flexed posture, and Min BUE pressure on AD. Pt required VCs/TCs to correct posture and release BUE pressure from AD. Noted SOB upon exertion, therefore pt was educated w/breathing techniques for energy conservation. Pt verbalized and demonstrated w/fair return. Assisted pt back to room [facility]. Pt sat and left at EOB w/food tray in front per pt's request. Left pt in comfort position, call light/phone within reach, bed alarmed, and all needs met. THOMAS Lowery informed of pt's status and was informed of pt's comment previously stated, "I even spit out dried blood this morning." A: Good tolerance to tx. No c/o dizziness or nausea throughout tx. Transfers and gait distance/assistance improved compared to previous tx. O2 sat was monitored and 02 supplemented throughout tx. 02 lowered to 83% during ambulation, however after breathing exercises it maintained between 93%-97%. P: Continue POC and progress as tolerated.
--- NOTE | 2018-03-01 12:22 | NUR ---
CM NOTE discharge planning f/u with [facility] [phone] and per [facility] fww can be taken from the closet and home pt will more detail order, cm will forward the order and room air result to him. Patient provided best contact phone number as well as the Director Decision Support who helps arrange oxygen in his building , Gerard . this cm attempted to get in touch with Gerard, no answer but left a message.cm will continue to follow up. Addendum: 03/01/18 at 1426 by LUCINDA DUKES RN, CM RECEIVED A NEW ORDER TO ARRANGE FOR HOME O2, PT DESATS TO 88% ON ROOM AIR WITH AMBULATION, CM FORWARDED ORDER TO [facility] AND WILL FOLLOW UP TO DELIVERY TIME. Addendum: 03/01/18 at 1613 by LUCINDA DUKES RN, CM MELVIN NOTE FOLLOWED UP WITH [facility] AT [place] AND HOME O2 WILL BE DELIVERED AT BEDSIDE BY 6PM TODAY, CM MADE MD AWARE.
--- NOTE | 2018-03-01 12:34 | NUR ---
RN Notes: Pt just finished PT session, ambulating on 2L O2, O2 Sat WNL. Now on RA 96%.
[2018-03-01] MEDS: DIGOXIN 0.125 MG TAB PO SCH (13:35)
--- NOTE | 2018-03-01 13:41 | NUR ---
RN Notes: Ambulated patient around unit on room air, desats to 88% and becomes short of breath. Pt had to stop walking a couple of times and O2 Sat went up to 96%.
--- NOTE | 2018-03-01 16:16 | NUR ---
CM NOTE FWW DELIVERED AT BEDSIDE AND RN IS AT BEDSIDE WELL.
[2018-03-01] MEDS ORDERED: BUME1TAB PO (16:46)
[2018-03-01] MEDS ORDERED: ALBU8.5H8 INH (16:46)
[2018-03-01] MEDS ORDERED: ALLO300T2 PO (16:46)
[2018-03-01] MEDS: RIVAROXABAN 20 MG TABLET PO SCH (17:11)
--- NOTE | 2018-03-01 17:37 | CONS ---
Date/Time of Note Date/Time of Note DATE: 03/01/18 TIME: 17:37 Assessment/Plan Assessment/Plan Hospital Course Assessment: Acute on chronic systolic heart failure - echocardiogram showed LVEF 10%, mild to moderate MR, RVSP 46 mmHg, IVC consistent with elevated right atrial pressure; now improved with diuresis and appears close to euvolemic Nonischemic cardiomyopathy, LVEF 10% Chronic atrial fibrillation Dyslipidemia Acute kidney injury Left lower extremity bleeding - thought secondary to small cut wound, bleeding has now resolved Recommendations: -continue Bumex 1mg PO BID -continue carvedilol 6.25mg BID -holding lisinopril, resume when renal function stabilized -continue digoxin 0.125mg daily -continue Xarelto 20mg daily -discharge planning, setting up home oxygen -as outpatient, will need continued cardiology follow up to work up for primary prevention ICD and possibly advanced heart failure therapies Result Diagram: 02/25/18 0525 03/01/18 0510 Results 24hrs Laboratory Tests Test 03/01/18 05:10 Sodium Level 142 Potassium Level 4.2 Chloride Level 99 Carbon Dioxide Level 32 H Anion Gap 11 Blood Urea Nitrogen 39 H Creatinine 1.07 Est Glomerular Filtrat Rate mL/min > 60 Glucose Level 79 # Calcium Level 9.3 Phosphorus Level 4.5 Magnesium Level 2.0 Consultation Date/Type/Reason Admit Date/Time Feb 24, 2018 at 10:40 Initial Consult Date Type of Consult Cardiology 24 HR Interval Summary Free Text/Dictation No acute events. Detailed Summary Additional Comments 14 point review of systems without changes. Exam/Review of Systems Vital Signs Vitals Vital Signs Date Temp Pulse Resp B/P (MAP) Pulse Ox O2 O2 Flow FiO2 Time Delivery Rate 03/01/18 95 16:11 03/01/18 96.9 20 105/76 95 Room Air 15:46 (86) 03/01/18 21 14:12 03/01/18 6.0 07:29 Intake and Output 02/28/18 02/28/18 03/01/18 1515:00 23:00 07:00 IntakeIntake Total 1120 ml 1000 ml OutputOutput Total 2350 ml 2000 ml BalanceBalance -1230 ml -1000 ml Exam Constitutional: alert, well developed Psych: no complaints, nl mood/affect Head: normocephalic, atraumatic Eyes: nl conjunctiva, nl lids ENMT: nl external ears & nose, nl nasal mucosa & septum Neck: supple, non-tender, jvd Respiratory: clear to auscultation Cardiovascular: irregular rhythm Gastrointestinal: soft, non-tender Musculoskeletal: swelling Extremities: edema; No cyanosis, No clubbing Neurological: nl mental status, nl speech Medications Medications Current Medications Atorvastatin Calcium (Lipitor) 40 mg QHS PO Last administered on 02/28/18 20: 57; Admin Dose 40 MG; Start 02/23/18 at 21:00 Carvedilol (Coreg) 6.25 mg BID PO Last administered on 02/28/18 20:58; Admin Dose 6.25 MG; Start 02/23/18 at 21:00 Digoxin (Digoxin) 0.125 mg DAILY@1300 PO Last administered on 03/01/18 13:35; Admin Dose 0.125 MG; Start 02/24/18 at 13:00 Multivitamins Therapeutic (Theragran) 1 tab DAILY PO Last administered on 03/01/18 08:18; Admin Dose 1 TAB; Start 02/24/18 at 09:00 Rivaroxaban (Xarelto) 20 mg WITH DINNER PO Last administered on 03/01/18 17:11; Admin Dose 20 MG; Start 02/23/18 at 18:00 IV Flush (NS 3 ml) 3 ml PER PROTOCOL IV ; Start 02/23/18 at 14:00 Ondansetron HCl (Zofran Inj) 4 mg Q6H PRN IV NAUSEA AND/OR VOMITING; Start 02/23/18 at 14:00 Acetaminophen (Tylenol Tab) 650 mg Q6H PRN PO PAIN LEVEL 1-3 OR FEVER; Start 02/23/18 at 14:00 Acetaminophen/ Hydrocodone Bitart ([place] (5/325)) 1 tab Q6H PRN PO PAIN LEVEL 4-6; Start 02/23/18 at 14:00 Aspirin (Aspirin) 81 mg DAILY PO Last administered on 03/01/18at 08:18; Admin Dose 81 MG; Start 02/24/18 at 09:00 Allopurinol (Zyloprim) 300 mg DAILY PO Last administered on 03/01/18 08:18; Admin Dose 300 MG; Start 02/25/18 at 09:00 Bumetanide (Bumex) 1 mg BID DIURETICS PO Last administered on 03/01/18 17:11; Admin Dose 1 MG; Start 02/25/18 at 18:00 Albuterol/ Ipratropium (Duoneb) 3 ml Q6HWA RESP THERAPY HHN Last administered on 03/01/18at 14:08; Admin Dose 3 ML; Start 02/25/18 at 14:00 Albuterol/ Ipratropium (Duoneb) 3 ml Q2H RESP THERAPY PRN HHN shortness of breath; Start 02/25/18 at 09:30 Budesonide (Pulmicort (Neb)) 0.5 mg BID RESP THERAPY HHN Last administered on 03/01/18 08:33; Admin Dose 0.5 MG; Start 02/25/18 at 10:00 WILIAN BAILEY MD Mar 01, 2018 17:37
--- NOTE | 2018-03-01 18:20 | NUR ---
EOSS: Pt AO x 4, Afib on tele, no acute distress, worked with PT today, tolerated well. Received a FWW from MELVIN Woodward. Call light within reach, instructed to call for assistance, stable for handoff to oncoming shift.
[2018-03-01] MEDS: ATORVASTATIN 40 MG TAB PO SCH (21:18)
[2018-03-02] VITALS (8 sets, daily range): BP systolic 98–120; BP diastolic 54–78; PULSE 62–99; RESP 12–22
[2018-03-02] MEDS: BUMETANIDE 1 MG TAB PO SCH (06:47)
--- NOTE | 2018-03-02 07:24 | NUR ---
EOSS Patient stable today. No SOB or dyspnea. Saturating wnl. On RA, denying use of NC. Continuing Bumex PO. All of patient's needs attended to. Hourly rounding. Will endorse care to oncoming nurse.
[2018-03-02] MEDS: ASPIRIN 81 MG TAB PO SCH (08:11)
[2018-03-02] MEDS: ALLOPURINOL 300 MG TAB PO SCH (08:11)
[2018-03-02] MEDS: MULTIVITAMINS THERAPEUTIC TAB PO SCH (08:11)
--- NOTE | 2018-03-02 08:29 | PN ---
Date/Time of Note Date/Time of Note DATE: 03/02/18 TIME: 08:29 Assessment/Plan VTE Prophylaxis Risk score (from Ns)>0 risk: 2 SCD applied (from Ns): No SCD contraindicated: low risk/ambulating Pharmacological prophylaxis: rivaroxaban Lines/Catheters IV [facility] ([facility] Saline Lock Urinary Cath still in place: No Assessment/Plan Assessment/Plan 1. Acute hypoxic respiratory distress- resolved - Patient doing well at rest. Per nursing, he desaturates to 83-88% on room air while ambulating. - Has HF with ejection fraction of 10% and will need outpatient assessment for ICD 2. Acute on chronic systolic congestive heart failure, EF of 10% - Cardiology on board and continue medical management - On Bumex and diuresing well - Will need outpatient follow up for ICD evaluation. Patient finally agreeable to procedure 3. A. fib - HR fluctuates but asymptomatic - Continue on BB and Xarelto - Cardiology on board and appreciate recommendations 4. Hypertension - Continue home meds 5. Dyslipidemia - Continue home meds 6. Acute kidney injury - Nephrology on board and appreciate consultation. - renal function at baseline 7. Disposition - Medically stable for discharge home Result Diagram: 03/01/18 0510 Subjective 24 Hr Interval Summary Free Text/Dictation Patient doing well and O2 was delivered to the room last night. Denies any acute overnight events. Exam/Review of Systems Vital Signs Vitals Vital Signs Date Temp Pulse Resp B/P (MAP) Pulse Ox O2 O2 Flow FiO2 Time Delivery Rate 03/02/18 62 08:18 03/02/18 97.6 22 111/78 96 Room Air 07:49 (89) 03/01/18 21 20:37 03/01/18 6.0 07:29 Intake and Output 03/01/18 03/01/18 03/02/18 1515:00 23:00 07:00 IntakeIntake Total 1240 ml 500 ml OutputOutput Total 3250 ml 3500 ml BalanceBalance -2010 ml -3000 ml Exam General: Patient is laying in bed and answers questions appropriately. no acute distress Neck: Supple Respiratory: Clear to auscultation bilaterally. no wheezing or rhonchi Cardiovascular: regular rate and rhythm, no obvious murmurs Gastrointestinal: soft, non-tender to palpation, nondisplaced, bowel sounds heard. Neurological: Moves all extremities spontaneously Skin: No new skin lesions Medications Medications Current Medications Atorvastatin Calcium (Lipitor) 40 mg QHS PO Last administered on 03/01/18 21:18; Admin Dose 40 MG; Start 02/23/18 at 21:00 Carvedilol (Coreg) 6.25 mg BID PO Last administered on 03/02/18 08:11; Admin Dose 6.25 MG; Start 02/23/18 at 21:00 Digoxin (Digoxin) 0.125 mg DAILY@1300 PO Last administered on 03/01/18 13:35; Admin Dose 0.125 MG; Start 02/24/18 at 13:00 Multivitamins Therapeutic (Theragran) 1 tab DAILY PO Last administered on 03/02/18 08:11; Admin Dose 1 TAB; Start 02/24/18 at 09:00 Rivaroxaban (Xarelto) 20 mg WITH DINNER PO Last administered on 03/01/18 17:11; Admin Dose 20 MG; Start 02/23/18 at 18:00 IV Flush (NS 3 ml) 3 ml PER PROTOCOL IV ; Start 02/23/18 at 14:00 Ondansetron HCl (Zofran Inj) 4 mg Q6H PRN IV NAUSEA AND/OR VOMITING; Start 02/23/18 at 14:00 Acetaminophen (Tylenol Tab) 650 mg Q6H PRN PO PAIN LEVEL 1-3 OR FEVER; Start 02/23/18 at 14:00 Acetaminophen/ Hydrocodone Bitart ([place] (5/325)) 1 tab Q6H PRN PO PAIN LEVEL 4-6; Start 02/23/18 at 14:00 Aspirin (Aspirin) 81 mg DAILY PO Last administered on 03/02/18at 08:11; Admin Dose 81 MG; Start 02/24/18 at 09:00 Allopurinol (Zyloprim) 300 mg DAILY PO Last administered on 03/02/18 08:11; Admin Dose 300 MG; Start 02/25/18 at 09:00 Bumetanide (Bumex) 1 mg BID DIURETICS PO Last administered on 03/02/18 06:47; Admin Dose 1 MG; Start 02/25/18 at 18:00 Albuterol/ Ipratropium (Duoneb) 3 ml Q6HWA RESP THERAPY HHN Last administered on 12/26/18at 20:36; Admin Dose 3 ML; Start 02/25/18 at 14:00 Albuterol/ Ipratropium (Duoneb) 3 ml Q2H RESP THERAPY PRN HHN shortness of breath; Start 02/25/18 at 09:30 Budesonide (Pulmicort (Neb)) 0.5 mg BID RESP THERAPY HHN Last administered on 03/01/18at 20:36; Admin Dose 0.5 MG; Start 02/25/18 at 10:00 LOY STARR MD Mar 02, 2018 08:29
[2018-03-02] MEDS: BUDESONIDE (NEB) 0.5MG/2ML AMP HHN SCH (08:49)
[2018-03-02] MEDS: ALBUTEROL/IPRATROPIUM (NEB) 3 ML AMP HHN SCH ×2 (08:49→13:30)
--- NOTE | 2018-03-02 09:35 | PN ---
DATE: 03/02/2018 SUBJECTIVE: The patient is stable, no events overnight. OBJECTIVE: VITAL SIGNS: Blood pressure is 111/78, pulse 62, temperature 97.6. HEENT: Head is normocephalic. NECK: Supple. HEART: Regular rate. LUNGS: Show diminished breath sounds at the base. ABDOMEN: Soft, nontender to palpation without rebound or guarding. EXTREMITIES: Negative for clubbing, cyanosis, no edema. DERMATOLOGIC: No rashes. MUSCULOSKELETAL: No joint effusion. NEUROLOGIC: No change in exam. MEDICATIONS: Reviewed. LABORATORY DATA: Has been reviewed. ASSESSMENT AND PLAN: 1. Nonoliguric kidney injury with previous baseline creatinine of 0.83 mg/dL. Etiology of acute kid neo injury is secondary to cardiorenal syndrome. Renal function is improved. Continue current medic al management. Continue diuretic therapy. 2. Anemia. Continue to monitor hemoglobin and hematocrit levels. 3. Mineral bone disorder, monitor calcium and phosphorus levels. 4. Acute on chronic heart failure, systolic/cardiomyopathy. Continue current medical management. F ollow up with cardiology. 5. Atrial fibrillation, rate controlled. Continue medical management. 6. Hypertension. Continue current blood pressure regimen. 7. Dyslipidemia. Continue statin therapy. 8. Hypoxemic respiratory failure secondary to congestive heart failure, improved. Continue to monit or. Dictated By: CATA GUERRERO DO NR/NTS Conf#: [id number] DID#: [id number] CC: GUSTAVO GIANG MD;*EndCC*
--- NOTE | 2018-03-02 10:09 | PDOCDIS ---
Discharge Instructions DIAGNOSIS Discharge Diagnosis 1. Acute hypoxic respiratory distress- resolved 2. Acute on chronic systolic congestive heart failure, EF of 10% 3. A. fib 4. Hypertension 5. Dyslipidemia 6. Acute kidney injury- resolved CONDITION [id number] Patient Condition: [id number] Stable HOME CARE INSTRUCTIONS: [id number] Diet Instructions: [id number] Low Fat /Cholesterol ACTIVITY: [id number] Activity Restrictions: [id number] No Restrictions FOLLOW UP/APPOINTMENTS Follow-up Plan 1. Follow up with your primary care physician in 1-2 weeks 2. Follow up with Cardiology for evaluation for ICD placement given your heart is only pumping at 10% 3. Use Oxygen at 2L when ambulating since your oxygen saturation drops below 90% 4. Continue all your medications as prescribed. Your Lasix was switched to Bumex for better control of fluid buildup in your body 5. Continue low salt, low carbohydrate diet 6. If you experience bleeding that wont stop or coughing up gross amounts of blood, return to your closest emergency room. LOY STARR MD Mar 02, 2018 10:09
[2018-03-02] MEDS: DIGOXIN 0.125 MG TAB PO SCH (14:52)
--- NOTE | 2018-03-02 15:40 | CONS ---
Date/Time of Note Date/Time of Note DATE: 03/02/18 TIME: 15:39 Assessment/Plan Assessment/Plan Hospital Course Assessment: Acute on chronic systolic heart failure - echocardiogram showed LVEF 10%, mild to moderate MR, RVSP 46 mmHg, IVC consistent with elevated right atrial pressure; now improved with diuresis and appears close to euvolemic Nonischemic cardiomyopathy, LVEF 10% Chronic atrial fibrillation Dyslipidemia Acute kidney injury Left lower extremity bleeding - thought secondary to small cut wound, bleeding has now resolved Recommendations: -continue Bumex 1mg PO BID -continue carvedilol 6.25mg BID -holding lisinopril, resume when renal function stabilized -continue digoxin 0.125mg daily -continue Xarelto 20mg daily -planning discharge today -as outpatient, will need continued cardiology follow up to work up for primary prevention ICD and possibly advanced heart failure therapies Result Diagram: 03/01/18 0510 Consultation Date/Type/Reason Admit Date/Time Feb 24, 2018 at 10:40 Initial Consult Date Type of Consult Cardiology 24 HR Interval Summary Free Text/Dictation No acute events. Planning discharge today. Detailed Summary Additional Comments 14 point review of systems without changes. Exam/Review of Systems Vital Signs Vitals Vital Signs Date Temp Pulse Resp B/P (MAP) Pulse Ox O2 O2 Flow FiO2 Time Delivery Rate 03/02/18 92 16 96 21 13:31 03/02/18 97.5 120/77 Room Air 12:04 (91) 03/01/18 6.0 07:29 Intake and Output 03/01/18 03/01/18 03/02/18 1515:00 23:00 07:00 IntakeIntake Total 1240 ml 500 ml OutputOutput Total 3250 ml 3500 ml BalanceBalance -2009 ml -3000 ml Exam Constitutional: alert, well developed Psych: no complaints, nl mood/affect Head: normocephalic, atraumatic Eyes: nl conjunctiva, nl lids ENMT: nl external ears & nose, nl nasal mucosa & septum Neck: supple, non-tender, jvd Respiratory: clear to auscultation Cardiovascular: irregular rhythm Gastrointestinal: soft, non-tender Musculoskeletal: swelling Extremities: edema; No cyanosis, No clubbing Neurological: nl mental status, nl speech Medications Medications Current Medications Atorvastatin Calcium (Lipitor) 40 mg QHS PO Last administered on 03/01/18at 21:18; Admin Dose 40 MG; Start 02/23/18 at 21:00 Carvedilol (Coreg) 6.25 mg BID PO Last administered on 03/02/18 08:11; Admin Dose 6.25 MG; Start 02/23/18 at 21:00 Digoxin (Digoxin) 0.125 mg DAILY@1300 PO Last administered on 03/02/18 14:52; Admin Dose 0.125 MG; Start 02/24/18 at 13:00 Multivitamins Therapeutic (Theragran) 1 tab DAILY PO Last administered on 03/02/18 08:11; Admin Dose 1 TAB; Start 02/24/18 at 09:00 Rivaroxaban (Xarelto) 20 mg WITH DINNER PO Last administered on 03/01/18 17: 11; Admin Dose 20 MG; Start 02/23/18 at 18:00 IV Flush (NS 3 ml) 3 ml PER PROTOCOL IV ; Start 02/23/18 at 14:00 Ondansetron HCl (Zofran Inj) 4 mg Q6H PRN IV NAUSEA AND/OR VOMITING; Start 02/23/18 at 14:00 Acetaminophen (Tylenol Tab) 650 mg Q6H PRN PO PAIN LEVEL 1-3 OR FEVER; Start 02/23/18 at 14:00 Acetaminophen/ Hydrocodone Bitart ([place] (5/325)) 1 tab Q6H PRN PO PAIN LEVEL 4-6; Start 02/23/18 at 14:00 Aspirin (Aspirin) 81 mg DAILY PO Last administered on 03/02/18 08:11; Admin Dose 81 MG; Start 02/24/18 at 09:00 Allopurinol (Zyloprim) 300 mg DAILY PO Last administered on 03/02/18 08:11; Admin Dose 300 MG; Start 02/25/18 at 09:00 Bumetanide (Bumex) 1 mg BID DIURETICS PO Last administered on 03/02/18 06:47; Admin Dose 1 MG; Start 02/25/18 at 18:00 Albuterol/ Ipratropium (Duoneb) 3 ml Q6HWA RESP THERAPY HHN Last administered on 03/02/18 13:30; Admin Dose 3 ML; Start 02/25/18 at 14:00 Albuterol/ Ipratropium (Duoneb) 3 ml Q2H RESP THERAPY PRN HHN shortness of freedom ath; Start 02/25/18 at 09:30 Budesonide (Pulmicort (Neb)) 0.5 mg BID RESP THERAPY HHN Last administered on 03/02/18at 08:49; Admin Dose 0.5 MG; Start 02/25/18 at 10:00 WILIAN BAILEY MD Mar 02, 2018 15:40
--- NOTE | 2018-03-02 15:45 | NUR ---
RN NOTES: Patient discharged home in stable condition with walker & O2 tank provided as ordered. Taxi voucher provided to patient as patient's request.
--- NOTE | 2018-03-02 16:52 | DS ---
Date/Time of Note Date/Time of Note DATE: 03/02/18 TIME: 16:45 Discharge Summary Admission/Discharge Info Admit Date/Time Feb 24, 2018 at 10:40 Discharge Date/Time Mar 02, 2018 at 16:24 Discharge Diagnosis 1. Acute hypoxic respiratory distress- resolved 2. Acute on chronic systolic congestive heart failure, EF of 10% 3. A. fib 4. Hypertension 5. Dyslipidemia 6. Acute kidney injury- resolved Patient Condition: Stable Consults Cardiology- Dr. Onfore Nephrology- Dr. Mancilla Procedures PROCEDURE: XR Chest. CLINICAL INDICATION: Chest pain TECHNIQUE: Single portable view of the chest was obtained COMPARISON: None FINDINGS: The heart is enlarged. The lungs are clear. There is no pleural effusion or pneumothorax. RPTAT: AA IMPRESSION: Marked Cardiomegaly. .Forest Jenkins MD, MD Date Time Electronically viewed and signed by .Forest Jenkins MD, MD on 02/23/2018 12:22 PROCEDURE: US Lower extremity Venous. CLINICAL INDICATION: Edema TECHNIQUE: Multiple sonographic images of the bilateral lower extremity deep venous system was obtained utilizing grayscale, color-flow, compressive sonography and doppler imaging with augmentation. The images were reviewed on a PACS workstation. COMPARISON: None. FINDINGS: There is normal compressibility and flow within the bilateral common femoral, deep femoral, superficial femoral, posterior tibial, peroneal and popliteal veins. IMPRESSION: No sonographic evidence for deep venous thrombosis. RPTAT: HVMV Physician Ángela Date Time Electronically viewed and signed by Physician Ángela on 02/23/2018 16:19 Hx of Present Illness Patient is a male with a past medical history significant for A. fib as well as systolic CHF with ejection fraction of 10% who presents to [facility] for a cut on his left leg. Patient stated that his leg has been more swollen and there was a mild cut that has now stopped bleeding. Coincidentally after further inquiry patient stated that recently he has been getting progressively worsening shortness of breath when he lies down and has noticed more swelling in his lower extremity. Patient follows up with a cardiology nurse practitioner at [facility], and is more or less compliant with his medications. Patient does have a drug abuse social worker that does take care of him on his behalf with his social issues. Patient states that oxygen tanks have been delivered to him by his doctor however he has no nasal cannula supplies. Patient denies chest pain, headache, double vision, abdominal pain, leg pain Hospital Course Patient was admitted and Cardiology was consulted given swelling of lower extremity due to CHF exacerbation. Patient also treated for acute hypoxic respiratory failure given EF 10% and was not on home O2 prior to admission due to all supplies not being delivered. Cardiology adjusted patients diuretics which was effective at improving swelling of lower extremities bilaterally. Patient was found with KRISTINE as well at time of admission and nephrology was consulted. Patients renal function return to baseline and presenting symptoms improved significantly. On day of discharge, patients vitals and physical exam are stable. Patient was discharged home with home O2 and FWW in stable condition. Home Meds Active Scripts Albuterol Sulfate* (Proair HFA*) 8.5 Gm Hfa.aer.ad, 2 PUFF INH Q4H PRN for WHEEZING AND SOB for 30 Days, #5 INHALER Prov:LOY STARR MD 03/01/18 Bumetanide* (Bumetanide*) 1 Mg Tablet, 1 MG PO BID DIURETICS for 30 Days, #60 TAB 5 Refills Prov:LOY STARR MD 03/01/18 Allopurinol* (Allopurinol*) 300 Mg Tablet, 300 MG PO DAILY for 30 Days, #30 TAB Prov:LOY STARR MD 03/01/18 Reported Medications Rivaroxaban* (Xarelto*) 20 Mg Tablet, 20 MG PO WITH DINNER, TAB 02/23/18 Multivitamins* (Theragran*) 1 Tab Tab, 1 TAB PO DAILY, TAB 02/23/18 Digoxin* (Digitek*) 125 Mcg Tablet, 0.125 MG PO DAILY, TAB 02/23/18 Carvedilol* (Carvedilol*) 6.25 Mg Tablet, 6.25 MG PO BID, #60 TAB 02/23/18 Atorvastatin* (Atorvastatin*) 40 Mg Tablet, 40 MG PO QHS, #30 TAB 02/23/18 Discontinued Reported Medications Lisinopril* (Lisinopril*) 2.5 Mg Tablet, 2.5 MG PO DAILY, #30 TAB 02/23/18 Furosemide* (Furosemide*) 20 Mg Tablet, 20 MG PO DAILY, #60 TAB 02/23/18 Allopurinol* (Allopurinol*) 100 Mg Tablet, 100 MG PO DAILY, TAB 02/23/18 Multivitamins* (Theragran*) 1 Tab Tab, 1 TAB PO DAILY, TAB 02/23/18 Discontinued Scripts Hydrocodone/Acetaminophen ([place] 5-325 Tablet) 1 Each Tablet, 1 TAB PO Q6H PRN for PAIN, #7 TAB Prov:SOWMYA FARLEY MD 08/06/17 Ibuprofen* (Motrin*) 600 Mg Tab, 600 MG PO Q6, #20 TAB Prov:SOWMYA FARLEY MD 08/06/17 Follow-up Plan 1. Follow up with your primary care physician in 1-2 weeks 2. Follow up with Cardiology for evaluation for ICD placement given your heart is only pumping at 10% 3. Use Oxygen at 2L when ambulating since your oxygen saturation drops below 90% 4. Continue all your medications as prescribed. Your Lasix was switched to Bumex for better control of fluid buildup in your body 5. Continue low salt, low carbohydrate diet 6. If you experience bleeding that wont stop or coughing up gross amounts of blood, return to your closest emergency room. Primary Care Provider [facility] Time spent on discharge: > 30 minutes LOY STARR MD Mar 02, 2018 16:52
== END 2018-03-02 16:24 | disposition home or self-care (01) | DRG 291 ==
LOC: E/R 11:42 → 6WM 13:17 → OBSVTOIN 02-24 10:40
PROVIDERS: ADMIT Internal Medicine; ATTEND Internal Medicine
DX: I13.0 Hypertensive heart and chronic kidney disease with heart failure and stage 1 through stage 4 chronic kidney disease, or unspecified chronic kidney disease (principal); I50.23 Acute on chronic systolic (congestive) heart failure; J96.01 Acute respiratory failure with hypoxia; N17.9 Acute kidney failure, unspecified; I42.9 Cardiomyopathy, unspecified; I48.2 Chronic atrial fibrillation; Z79.01 Long term (current) use of anticoagulants; N18.9 Chronic kidney disease, unspecified; E87.6 Hypokalemia; E78.5 Hyperlipidemia, unspecified
CPT/HCPCS: 36415; 71045; 80048; 80053; 80061; 80069; 81003; 82550; 82553; 83036; 83735; 83880; 84100; 84155; 84300; 84484; 84560; 85025; 85610; 85730; 90686; 93005; 93306; 93970; 94640; 94664; 96374; 97116; 97161; 97530; G0378; J1940

== ENCOUNTER 2018-06-12 10:48 | Inpatient (IN) | payer OTHER ==
[~2018-06-12] VITALS: Ht 188 cm; Wt 87.4 kg
[~2018-06-12 10:48] MED LIST changes: +ALBU8.5H8 INH; +ALLO300T2 PO; +ATOR40TA68 PO; +BUME1TAB PO; +CARV6.2579 PO; +DIGO125T PO; -HYDR-4011 PO; -IBUP-1542 PO; +MULTI PO; +RIVA20TA5 PO
[2018-06-12] MEDS ORDERED: ASPIRIN 325 MG TAB PO STA (10:56)
[2018-06-12] MEDS ORDERED: FUROSEMIDE 40 MG INJ IV ONE (11:30)
[2018-06-12] MEDS ORDERED: ATOR40TA68 PO (11:35)
[2018-06-12] MEDS ORDERED: DIGO125T PO (11:36)
[2018-06-12] MEDS ORDERED: BUME1TAB PO (11:36)
[2018-06-12] MEDS ORDERED: FURO20TA3 PO (11:36)
[2018-06-12] MEDS ORDERED: ALLO300T2 PO (11:37)
[2018-06-12] MEDS ORDERED: RIVA20TA5 PO (11:37)
[2018-06-12] MEDS ORDERED: ASPI-817 PO (11:38)
[2018-06-12] MEDS ORDERED: POTASSIUM PO (11:50)
[2018-06-12] MEDS ORDERED: POTASSIUM CHLORIDE (SR) 20 MEQ TAB PO STA (12:59)
[2018-06-12] MEDS ORDERED: ACETAMINOPHEN 325 MG TAB PO PRN ×2 (13:30→14:00)
[2018-06-12] MEDS ORDERED: ONDANSETRON 4 MG INJ IV PRN ×2 (13:30→14:00)
--- NOTE | 2018-06-12 13:58 | ERD ---
ER Documentation Chief Complaint Chief Complaint cough, generalized weakness coughing green sputum HPI 57-year-old gentleman history of coronary disease and CHF who presents with noncompliance with medication regimen. He notes shortness of breath, cough that is worse when laying flat with associated bilateral lower extremity edema. Associated chest pain and dyspnea on exertion. He denies any pleuritic pain. No unilateral swelling. ROS All systems reviewed and are negative except as per history of present illness. Medications Home Meds Reported Medications [Potassium] No Conflict Check, 1 TAB PO BID 06/12/18 Aspirin* (Aspirin* EC) 81 Mg Tablet.dr, 81 MG PO DAILY, TAB 06/12/18 Rivaroxaban* (Xarelto*) 20 Mg Tablet, 20 MG PO WITH DINNER, TAB 06/12/18 Allopurinol* (Allopurinol*) 300 Mg Tablet, 300 MG PO DAILY, TAB 06/12/18 Furosemide* (Furosemide*) 20 Mg Tablet, 20 MG PO BID, #30 TAB 06/12/18 Digoxin* (Digitek*) 125 Mcg Tablet, 0.125 MG PO DAILY, TAB 06/12/18 Bumetanide* (Bumetanide*) 1 Mg Tablet, 1 MG PO BID, TAB 06/12/18 Atorvastatin* (Atorvastatin*) 40 Mg Tablet, 40 MG PO QHS, #30 TAB 06/12/18 Discontinued Reported Medications Rivaroxaban* (Xarelto*) 20 Mg Tablet, 20 MG PO WITH DINNER, TAB 02/23/18 Multivitamins* (Theragran*) 1 Tab Tab, 1 TAB PO DAILY, TAB 02/23/18 Digoxin* (Digitek*) 125 Mcg Tablet, 0.125 MG PO DAILY, TAB 02/23/18 Carvedilol* (Carvedilol*) 6.25 Mg Tablet, 6.25 MG PO BID, #60 TAB 02/23/18 Atorvastatin* (Atorvastatin*) 40 Mg Tablet, 40 MG PO QHS, #30 TAB 02/23/18 Discontinued Scripts Albuterol Sulfate* (Proair HFA*) 8.5 Gm Hfa.aer.ad, 2 PUFF INH Q4H PRN for WHEE ZING AND SOB for 30 Days, #5 INHALER Prov:LOY STARR MD 03/01/18 Bumetanide* (Bumetanide*) 1 Mg Tablet, 1 MG PO BID DIURETICS for 30 Days, #60 TAB 5 Refills Prov:LOY STARR MD 03/01/18 Allopurinol* (Allopurinol*) 300 Mg Tablet, 300 MG PO DAILY for 30 Days, #30 TAB Prov:LOY STARR MD 03/01/18 Allergies Allergies: Coded Allergies: No Known Drug Allergies (Verified Allergy, Mild, 06/12/18) PMhx/Soc History of Surgery: No Anesthesia Reaction: No Hx Neurological Disorder: No Hx Respiratory Disorders: No Hx Cardiac Disorders: Yes (chf) Hx Psychiatric Problems: No Hx Miscellaneous Medical Probl: Yes (Afib, systolic CHF with EF 10%, cardio myopathy, HTN, dyslipidemia) Hx Alcohol Use: No Hx Substance Use: No Hx Tobacco Use: No Smoking Status: Never smoker FmHx Family History: No diabetes Physical Exam Vitals Vital Signs Date Temp Pulse Resp B/P (MAP) Pulse Ox O2 O2 Flow FiO2 Time Delivery Rate 06/12/18 98 17 107/80 95 Nasal 2.0 13:19 (89) Cannula 06/12/18 108 17 117/77 93 Nasal 2.0 12:01 (90) Cannula 06/12/18 Nasal 2.0 11:58 Cannula 06/12/18 Nasal 2 11:58 Cannula 06/12/18 97.8 110 18 118/77 96 10:58 (91) Physical Exam General: Well developed, well nourished, no acute distress Head: Normocephalic, atraumatic. Eyes: Pupils equally reactive, EOM intact ENT: Moist mucous membranes Neck: Supple, no lymphadenopathy Respiratory: Rales at the bases bilaterally Cardiovascular: RRR, no murmurs, rubs, or gallops Abdominal: Soft, non-tender, non-distended, no peritoneal signs : Deferred MSK: Bilateral lower extremity pitting edema, no unilateral swelling, 5/5 strength Neurologic: Alert and oriented, moving all extremities, normal speech, no focal weakness, no cerebellar signs Skin: No rash Psych: Normal mood Result Diagram: 06/12/18 1141 06/12/18 1141 Results 24 hrs Laboratory Tests Test 06/12/18 11:41 White Blood Count 6.6 10^3/ul Red Blood Count 4.24 10^6/ul Hemoglobin 14.6 g/dl Hematocrit 43.5 % Mean Corpuscular Volume 102.6 fl Mean Corpuscular Hemoglobin 34.4 pg Mean Corpuscular Hemoglobin Concent 33.6 g/dl Red Cell Distribution Width 15.2 % Platelet Count 148 10^3/UL Mean Platelet Volume 12.5 fl Immature Granulocytes % 0.300 % Neutrophils % 65.6 % Lymphocytes % 19.3 % Monocytes % 12.4 % Eosinophils % 1.5 % Basophils % 0.9 % Nucleated Red Blood Cells % 0.0 /100WBC Immature Granulocytes # 0.020 10^3/ul Neutrophils # 4.4 10^3/ul Lymphocytes # 1.3 10^3/ul Monocytes # 0.8 10^3/ul Eosinophils # 0.1 10^3/ul Basophils # 0.1 10^3/ul Nucleated Red Blood Cells # 0.0 10^3/ul Sodium Level 137 mmol/L Potassium Level 2.9 mmol/L Chloride Level 96 mmol/L Carbon Dioxide Level 29 mmol/L Anion Gap 12 Blood Urea Nitrogen 37 mg/dl Creatinine 1.48 mg/dl Est Glomerular Filtrat Rate mL/min 49 mL/min Glucose Level 88 mg/dl Calcium Level 9.1 mg/dl Troponin I 0.040 ng/ml B-Type Natriuretic Peptide 40525 PG/ML Current Medications Medications Dose Sig/Pedro Start Time Status Last (Trade) Ordered Route PRN Stop Time Admin Dose Reason Admin Aspirin 325 mg ONCE STAT 06/12/18 DC 06/12/18 (Aspirin) PO 10:56 06/12/18 11:33 10:57 Furosemide 40 mg ONCE ONCE 06/12/18 DC 06/12/18 (Lasix) IV 11:30 06/12/18 11:33 11:31 Potassium 40 meq ONCE STAT 06/12/18 DC 06/12/18 Chloride PO 12:59 06/12/18 13:14 (Klor-Con 20) 13:00 Ondansetron 4 mg ER BRIDGE 06/12/18 HCl (Zofran PRN IV 13:30 06/13/18 Inj) NAUSEA/VOMITI 13:29 NG 650 mg ER BRIDGE 06/12/18 Acetaminophen PRN PO 13:30 06/13/18 (Tylenol .MILD PAIN 13:29 Tab) 1-3 OR TEMP IV Flush 3 ml PER 06/12/18 (NS 3 ml) PROTOCOL IV 14:00 Ondansetron 4 mg Q6H PRN 06/12/18 HCl (Zofran IV 14:00 Inj) NAUSEA/VOMITI NG Aspirin 81 mg DAILY PO 06/13/18 (Aspirin) 09:00 650 mg Q6H PRN 06/12/18 Acetaminophen PO .PAIN 1-3 14:00 (Tylenol OR TEMP Tab) 1 tab Q6H PRN 06/12/18 Acetaminophen PO .PAIN 4-6 14:00 / Hydrocodone Bitart ([place] (5/325)) Morphine 2 mg Q4H PRN 06/12/18 Sulfate IV .PAIN 14:00 (morphine) 7-10 Procedures/MDM EKG, MONITORS, & DIAGNOSTIC IMAGING: EKG: I reviewed and interpreted a 12-lead EKG. Rhythm: A. fib, rate controlled ST Changes: No contiguous ST segment elevations T waves: No contiguous T wave inversions Impression: [No evidence of acute cardiac ischemia] Repeat EKG: I reviewed and interpreted a 12-lead EKG. Rhythm: A. fib rate controlled ST Changes: No contiguous ST segment elevations T waves: No contiguous T wave inversions Impression: [No evidence of acute cardiac ischemia] chest x-ray: I reviewed and interpreted a 1 view of the chest Mediastinum: No enlargement Cardiac silhouette: cardiomegaly Airspace: mild pulmonary edema Bones: No evidence of fracture LAB INTERPRETATION: I reviewed the laboratory testing and it shows elevated BNP, negative troponin MEDICAL DECISION MAKING: Patient presents with signs and symptoms consistent with CHF exacerbation and volume overload likely secondary to medication noncompliance. The patient is having chest pain and dyspnea on exertion. He needs to be ruled out for ACS. ER COURSE: * Diuretic provided. * aspirin given, potassium repleted * Patient is resting complaint does not require nitro drip or positive pressure ventilation CONSULTATION: [None] DISPOSITION PLAN: Telemetry admission for management of chest pain to rule out acute coronary syndrome, serial enzymes, risk stratification and consideration of provocative testing CONSULTATION: Accepting care team and consultations: I discussed the current laboratory data, diagnostic imaging and emergency care provided. Admitting team: Dr. Flores Admitting team indication: Insurance directed Departure Diagnosis: Primary Impression: Acute exacerbation of CHF (congestive heart failure) Heart failure type: systolic Qualified Codes: I50.23 - Acute on chronic systolic (congestive) heart failure Additional Impressions: Acute renal insufficiency Hypokalemia Condition: Stable SHELBIE LAMAR MD Jun 12, 2018 13:58
[2018-06-12] MEDS ORDERED: morphine 2 MG INJ IV PRN (14:00)
[2018-06-12] MEDS ORDERED: NACL 0.9% 3 ML SYG IV SCH (14:00)
[2018-06-12 15:49] VITALS: BP 109/64; PULSE 101; RESP 16
[2018-06-12 16:01] VITALS: PULSE 113; Ht 188 cm; Wt 87.4 kg
[2018-06-12] MEDS: FUROSEMIDE 40 MG INJ IV SCH (17:48)
--- NOTE | 2018-06-12 17:56 | HP ---
Date/Time of Note Date/Time of Note DATE: 06/12/18 TIME: 17:56 Assessment/Plan VTE Prophylaxis Pharmacological prophylaxis: other Lines/Catheters IV [facility]from [facility] Saline Lock Assessment/Plan Hospital Course Patient is a male with a past medical history significant for congestive heart failure with EF of 10%, A. fib, hypertension, dyslipidemia, gout who presents to [facility] for progressively worsening shortness of breath and swelling of his legs. Patient states that for the past couple months patient has been able to keep down the swelling of his legs however the past few days has been particularly hard as the weather has changed and he has been suffering from progressively worsening heartburn which would not allow him to take his medication. Patient states that last time he took his medication was yesterday. Patient states that the foam buildup from the acid reflux irritates his throat and does not allow him to properly swallow his medication as he would then cough and throat up. Patient has been trying to be compliant with his medications. Patient denies any chest pain, patient states his complaints are mostly secondary to cough and shortness of breath but is worse when laying down. Patient states that his feet are the most swollen he is ever seen him. Patient denies abdominal pain, nausea, headache. Objective Physical exam General: Patient is laying in bed and answers questions appropriately Mentation: Patient is alert and oriented 4, Head: Normocephalic atraumatic Eyes: EOMI, pupils reactive to light Neck: Supple, nontender, midline Respiratory: Coarse to auscultation bilaterally Cardiovascular: regular rate, no obvious murmurs Gastrointestinal: non-tender to palpation, bowel sounds heard. Neurological: Moves all extremities spontaneously Musculoskeletal: 2+ pitting edema bilaterally Assessment and plan CHF exacerbation -Cardiology consulted -Likely a combination of medication noncompliance as patient is not the most reliable source and he admittedly has not been able to take some of his medications. -IV Lasix -Additional medications per cardiology Cough -Secondary to above CHF exacerbation -Robitussin as needed likely will not go away until CHF is under control Questionable chest pain -ED was concerned about chest pain however patient denies any chest pain or shortness of breath, however patient may be getting the story mixed up or may be secondary to atypical chest pain from his acid reflux, however since it may be atypical, will continue to trend troponins Lower extremity edema -Secondary to above CHF exacerbation -Ultrasound obtained to rule out DVT, unlikely DVT however Acid reflux -Appears to be fairly severe as patient is experiencing difficulty with occasional coughing up his medications due to what he states is foam from acid reflux -PPI, Carafate for now and assess A. fib -Patient on Xarelto at home, will hold for now until chest pain is ruled out as patient may have atypical chest pain secondary to his acid reflux, patient may need cath if troponin bumped up. Acute kidney injury versus chronic kidney disease -Patient had similar presentation on previous admission -Nephrology consulted Dyslipidemia -Continue atorvastatin Hypo-kalemia -Replete as needed Disposition -Cardiology and nephrology consulted, recommendations appreciated Result Diagram: 06/12/18 1141 06/12/18 1141 Results 24hrs Laboratory Tests Test 06/12/18 11:41 06/12/18 16:20 White Blood Count 6.6 Red Blood Count 4.24 L Hemoglobin 14.6 Hematocrit 43.5 Mean Corpuscular Volume 102.6 H Mean Corpuscular Hemoglobin 34.4 H Mean Corpuscular Hemoglobin Concent 33.6 Red Cell Distribution Width 15.2 H Platelet Count 148 Mean Platelet Volume 12.5 H Immature Granulocytes % 0.300 Neutrophils % 65.6 Lymphocytes % 19.3 Monocytes % 12.4 H Eosinophils % 1.5 Basophils % 0.9 Nucleated Red Blood Cells % 0.0 Immature Granulocytes # 0.020 Neutrophils # 4.4 Lymphocytes # 1.3 Monocytes # 0.8 Eosinophils # 0.1 Basophils # 0.1 Nucleated Red Blood Cells # 0.0 Sodium Level 137 Potassium Level 2.9 *L Chloride Level 96 L Carbon Dioxide Level 29 Anion Gap 12 Blood Urea Nitrogen 37 H Creatinine 1.48 H Est Glomerular Filtrat Rate mL/min 49 L Glucose Level 88 Calcium Level 9.1 Troponin I 0.040 0.032 B-Type Natriuretic Peptide 45875 H Creatine Kinase 127 Creatine Kinase Index 2.7 Creatinine Kinase MB (Mass) 3.48 H HPI/ROS Admit Date/Time Admit Date/Time Jun 12, 2018 at 13:10 PMH/Family/Social Past Medical History Medications Current Medications Ondansetron HCl (Zofran Inj) 4 mg ER BRIDGE PRN IV NAUSEA/VOMITING; Start at 13:30; Stop 06/13/18 at 13:29 Acetaminophen (Tylenol Tab) 650 mg ER BRIDGE PRN PO .MILD PAIN 1-3 OR TEMP; Start 06/12/18 at 13:30; Stop 06/13/18 at 13:29 IV Flush (NS 3 ml) 3 ml PER PROTOCOL IV ; Start 06/12/18 at 14:00 Ondansetron HCl (Zofran Inj) 4 mg Q6H PRN IV NAUSEA/VOMITING; Start 06/12/18 at 14:00 Acetaminophen (Tylenol Tab) 650 mg Q6H PRN PO .PAIN 1-3 OR TEMP; Start 06/12/18 at 14:00 Acetaminophen/ Hydrocodone Bitart ([place] (5/325)) 1 tab Q6H PRN PO .PAIN 4-6; Start 06/12/18 at 14:00 Morphine Sulfate (morphine) 2 mg Q4H PRN IV .PAIN 7-10; Start 06/12/18 at 14:00 Furosemide (Lasix) 40 mg BID DIURETICS IV Last administered on 06/12/18at 17:48; Admin Dose 40 MG; Start 06/12/18 at 18:00 Allopurinol (Zyloprim) 300 mg DAILY PO ; Start 06/12/18 at 17:30; Status UNV Atorvastatin Calcium (Lipitor) 40 mg QHS PO ; Start 06/12/18 at 21:00 Digoxin (Digoxin) 0.125 mg DAILY PO ; Start 06/12/18 at 17:30; Status UNV Pantoprazole (Protonix Tab) 40 mg DAILY@06 PO ; Start 06/13/18 at 06:00 Pantoprazole (Protonix Tab) 40 mg ONCE ONCE PO Last administered on 06/12/18at 17:48; Admin Dose 40 MG; Start 06/12/18 at 18:00; Stop 06/12/18 at 18:01 Sucralfate (Carafate Susp) 1 gm QID PO ; Start 06/12/18 at 21:00; Status UNV Rivaroxaban (Xarelto) 20 mg WITH DINNER PO ; Start 06/13/18 at 19:00; Status UNV Potassium Chloride (Potassium Chloride Pwd/Soln) 40 meq ONCE ONCE PO ; Start 06/12/18 at 18:00; Stop 06/12/18 at 18:01; Status UNV Guaifenesin/ Dextromethorphan (Robitussin Dm Liquid Cup) 5 ml Q4H PRN PO cough; Start 06/12/18 at 18:00; Status UNV Coded Allergies: No Known Drug Allergies (Verified Allergy, Mild, 06/12/18) Past Surgical History Past Surgical Hx: no surgical history Family History Significant Family History: no pertinent family hx Social History Smoking Status: Never smoker Exam/Review of Systems Vital Signs Vitals Vital Signs Date Temp Pulse Resp B/P (MAP) Pulse Ox O2 O2 Flow FiO2 Time Delivery Rate 06/12/18 Nasal 2.0 16:14 Cannula 06/12/18 113 16:01 06/12/18 98.9 16 109/64 96 15:49 (79) GUSTAVO GIANG Jun 12, 2018 17:56
[2018-06-12] MEDS ORDERED: RIVAROXABAN 20 MG TABLET PO SCH (18:00)
[2018-06-12] MEDS ORDERED: PANTOPRAZOLE (EC) 40 MG TAB PO ONE (18:00)
[2018-06-12] MEDS ORDERED: POTASSIUM CHLORIDE 20 MEQ POWDER FOR ORAL SOLN PO ONE (18:00)
[2018-06-12] MEDS: ALLOPURINOL 300 MG TAB PO SCH (18:06)
[2018-06-12] MEDS: DIGOXIN 0.125 MG TAB PO SCH (18:06)
--- NOTE | 2018-06-12 18:25 | CONS ---
Assessment/Plan Assessment/Plan Hospital Course (Demo Recall) Congestive heart failure: Acute on chronic secondary systolic and diastolic heart failure Atrial fibrillation Severe nonischemic cardiomyopathy ejection fraction has been about 10% previously Abnormal EKG Noncompliant Chronic kidney disease Recommendations: Continue with the digoxin will check this level. Coreg. We will will start him on a 3.125 p.o. twice daily since he has not been taking his Coreg regularly SOHAIL inhibitor will be changed to ARB due to his cough Continue with Xarelto. 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 We will continue to follow along with you KRISTINA ZAVALA MD [facility] Consultation Date/Type/Reason Admit Date/Time Jun 12, 2018 at 13:10 Date of Consultation: Jun 12, 2018 Type of Consult Cardiology Reason for Consultation chf Requesting Provider: GUSTAVO GIANG Date/Time of Note DATE: 06/12/18 TIME: 18:18 Hx of Present Illness Interventional cardiology consultation note Chief complaint: Shortness of breath and cough Reason for consult: CHF History of present illness: Thank you for this referral. History was obtained mostly from review of the old chart discussion physician staff mostly from the patient himself. This is an unfortunate 57-year-old gentleman with history of severe nonischemic cardiomyopathy ejection fraction of 10%, atrial fibrillation who presents emergency of increasing shortness of breath and cough. Patient is supposed to be followed up at all review cardiology. However said that his last appointment was about 8 months ago. He said that the last time he was supposed to see them a few months ago he waited in the waiting room but since that they did not take him right away he got upset and he left that has not made an appointment with them the since then. He has been taking his medication but not on a regular basis. He does not take his Coreg if his heart rate is less than 80 because he would "pass out" He denies any chest pain or pressure but complains of cough and mucus building. He said when he takes pills he gets Dr. does not go to the stomach because of the mucus He has an increasing shortness of breath looks no edema and has been admitted to the hospital Allergies: No known drug allergies Medications were reviewed as per medical reconciliation sheet Family history: No history of early coronary artery disease Social history: Denies any active tobacco alcohol drug abuse to me Past medical history: Severe cardiomyopathy ejection fraction of 10%. According to the patient has had a coronary angiography done previously showed a patent all vessels Congestive heart failure atrial fibrillation on Xarelto with history of noncompliance no renal insufficiency dyslipidemia Review of system: Patient denies all others except for above-mentioned Past Medical History Home Meds Reported Medications [Potassium] No Conflict Check, 1 TAB PO BID 06/12/18 Aspirin* (Aspirin* EC) 81 Mg Tablet.dr, 81 MG PO DAILY, TAB 06/12/18 Rivaroxaban* (Xarelto*) 20 Mg Tablet, 20 MG PO WITH DINNER, TAB 06/12/18 Allopurinol* (Allopurinol*) 300 Mg Tablet, 300 MG PO DAILY, TAB 06/12/18 Furosemide* (Furosemide*) 20 Mg Tablet, 20 MG PO BID, #30 TAB 06/12/18 Digoxin* (Digitek*) 125 Mcg Tablet, 0.125 MG PO DAILY, TAB 06/12/18 Bumetanide* (Bumetanide*) 1 Mg Tablet, 1 MG PO BID, TAB 06/12/18 Atorvastatin* (Atorvastatin*) 40 Mg Tablet, 40 MG PO QHS, #30 TAB 06/12/18 Discontinued Reported Medications Rivaroxaban* (Xarelto*) 20 Mg Tablet, 20 MG PO WITH DINNER, TAB 02/23/18 Multivitamins* (Theragran*) 1 Tab Tab, 1 TAB PO DAILY, TAB 02/23/18 Digoxin* (Digitek*) 125 Mcg Tablet, 0.125 MG PO DAILY, TAB 02/23/18 Carvedilol* (Carvedilol*) 6.25 Mg Tablet, 6.25 MG PO BID, #60 TAB 02/23/18 Atorvastatin* (Atorvastatin*) 40 Mg Tablet, 40 MG PO QHS, #30 TAB 02/23/18 Discontinued Scripts Albuterol Sulfate* (Proair HFA*) 8.5 Gm Hfa.aer.ad, 2 PUFF INH Q4H PRN for WHEEZING AND SOB for 30 Days, #5 INHALER Prov:LOY STARR MD 03/01/18 Bumetanide* (Bumetanide*) 1 Mg Tablet, 1 MG PO BID DIURETICS for 30 Days, #60 TAB 5 Refills Prov:LOY STARR MD 03/01/18 Allopurinol* (Allopurinol*) 300 Mg Tablet, 300 MG PO DAILY for 30 Days, #30 TAB Prov:LOY STARR MD 03/01/18 Medications Current Medications Ondansetron HCl (Zofran Inj) 4 mg ER BRIDGE PRN IV NAUSEA/VOMITING; Start 06/12/18 at 13:30; Stop 06/13/18 at 13:29 Acetaminophen (Tylenol Tab) 650 mg ER BRIDGE PRN PO .MILD PAIN 1-3 OR TEMP; Start 06/12/18 at 13:30; Stop 06/13/18 at 13:29 IV Flush (NS 3 ml) 3 ml PER PROTOCOL IV ; Start 06/12/18 at 14:00 Ondansetron HCl (Zofran Inj) 4 mg Q6H PRN IV NAUSEA/VOMITING; Start 06/12/18 at 14:00 Acetaminophen (Tylenol Tab) 650 mg Q6H PRN PO .PAIN 1-3 OR TEMP; Start 06/12/18 at 14:00 Acetaminophen/ Hydrocodone Bitart ([place] (5/325)) 1 tab Q6H PRN PO .PAIN 4-6; Start 06/12/18 at 14:00 Morphine Sulfate (morphine) 2 mg Q4H PRN IV .PAIN 7-10; Start 06/12/18 at 14:00 Furosemide (Lasix) 40 mg BID DIURETICS IV Last administered on 06/12/18at 17:48; Admin Dose 40 MG; Start 06/12/18 at 18:00 Allopurinol (Zyloprim) 300 mg DAILY PO Last administered on 06/12/18at 18:06; Admin Dose 300 MG; Start 06/12/18 at 17:30 Atorvastatin Calcium (Lipitor) 40 mg QHS PO ; Start 06/12/18 at 21:00 Digoxin (Digoxin) 0.125 mg DAILY@1300 PO Last administered on 06/12/18at 18:06; Admin Dose 0.125 MG; Start 06/12/18 at 17:30 Pantoprazole (Protonix Tab) 40 mg DAILY@06 PO ; Start 06/13/18 at 06:00 Sucralfate (Carafate Susp) 1 gm QID PO ; Start 06/12/18 at 21:00 Rivaroxaban (Xarelto) 20 mg WITH DINNER PO ; Start 06/13/18 at 19:00 Guaifenesin/ Dextromethorphan (Robitussin Dm Liquid Cup) 5 ml Q4H PRN PO cough; Start 06/12/18 at 18:00 Allergies: Coded Allergies: No Known Drug Allergies (Verified Allergy, Mild, 06/12/18) Past Surgical History Past Surgical Hx: no surgical history Social History Smoking Status: Never smoker Exam/Review of Systems Vital Signs Vitals Vital Signs Date Temp Pulse Resp B/P (MAP) Pulse Ox O2 O2 Flow FiO2 Time Delivery Rate 06/12/18 Nasal 2.0 16:14 Cannula 06/12/18 113 16:01 06/12/18 98.9 16 109/64 96 15:49 (79) Exam Exam General: no acute distress HEENT: NC/AT. pupils are equal. round. NECK: . no stridor. CV: RRR. systolic murmur; no gallop or rubs. PULM: no wheezing + rhonchi. GI: SOFT, NT, ND, no rebound or guarding Extremity: + B/L LE edema. no clubbing. neuro: awake and alert, OX3. Psych: calm and pleasant rectal: deferred EKG showed atrial fibrillation rapid ventricular response heart rate of about 110. In the ventricular conduction delay. Anterior infarct age undetermined Chest x-ray shows: Marked enlargement of the cardiac silhouette, related to chamber enlargement versus pericardial effusion. Labs Result Diagram: 06/12/18 1141 06/12/18 1141 Results 24hrs Laboratory Tests Test 06/12/18 11:41 06/12/18 16:20 White Blood Count 6.6 Red Blood Count 4.24 L Hemoglobin 14.6 Hematocrit 43.5 Mean Corpuscular Volume 102.6 H Mean Corpuscular Hemoglobin 34.4 H Mean Corpuscular Hemoglobin Concent 33.6 Red Cell Distribution Width 15.2 H Platelet Count 148 Mean Platelet Volume 12.5 H Immature Granulocytes % 0.300 Neutrophils % 65.6 Lymphocytes % 19.3 Monocytes % 12.4 H Eosinophils % 1.5 Basophils % 0.9 Nucleated Red Blood Cells % 0.0 Immature Granulocytes # 0.020 Neutrophils # 4.4 Lymphocytes # 1.3 Monocytes # 0.8 Eosinophils # 0.1 Basophils # 0.1 Nucleated Red Blood Cells # 0.0 Sodium Level 137 Potassium Level 2.9 *L Chloride Level 96 L Carbon Dioxide Level 29 Anion Gap 12 Blood Urea Nitrogen 37 H Creatinine 1.48 H Est Glomerular Filtrat Rate mL/min 49 L Glucose Level 88 Calcium Level 9.1 Troponin I 0.040 0.032 B-Type Natriuretic Peptide 13730 H Creatine Kinase 127 Creatine Kinase Index 2.7 Creatinine Kinase MB (Mass) 3.48 H Medications Medications Current Medications Ondansetron HCl (Zofran Inj) 4 mg ER BRIDGE PRN IV NAUSEA/VOMITING; Start 06/12/18 at 13:30; Stop 06/13/18 at 13:29 Acetaminophen (Tylenol Tab) 650 mg ER BRIDGE PRN PO .MILD PAIN 1-3 OR TEMP; Start 06/12/18 at 13:30; Stop 06/13/18 at 13:29 IV Flush (NS 3 ml) 3 ml PER PROTOCOL IV ; Start 06/12/18 at 14:00 Ondansetron HCl (Zofran Inj) 4 mg Q6H PRN IV NAUSEA/VOMITING; Start 06/12/18 at 14:00 Acetaminophen (Tylenol Tab) 650 mg Q6H PRN PO .PAIN 1-3 OR TEMP; Start 06/12/18 at 14:00 Acetaminophen/ Hydrocodone Bitart ([place] (5/325)) 1 tab Q6H PRN PO .PAIN 4-6; Start 06/12/18 at 14:00 Morphine Sulfate (morphine) 2 mg Q4H PRN IV .PAIN 7-10; Start 06/12/18 at 14:00 Furosemide (Lasix) 40 mg BID DIURETICS IV Last administered on 06/12/18at 17:48; Admin Dose 40 MG; Start 06/12/18 at 18:00 Allopurinol (Zyloprim) 300 mg DAILY PO Last administered on 06/12/18at 18:06; Admin Dose 300 MG; Start 06/12/18 at 17:30 Atorvastatin Calcium (Lipitor) 40 mg QHS PO ; Start 06/12/18 at 21:00 Digoxin (Digoxin) 0.125 mg DAILY@1300 PO Last administered on 06/12/18at 18:06; Admin Dose 0.125 MG; Start 06/12/18 at 17:30 Pantoprazole (Protonix Tab) 40 mg DAILY@06 PO ; Start 06/13/18 at 06:00 Sucralfate (Carafate Susp) 1 gm QID PO ; Start 06/12/18 at 21:00 Rivaroxaban (Xarelto) 20 mg WITH DINNER PO ; Start 06/13/18 at 19:00 Guaifenesin/ Dextromethorphan (Robitussin Dm Liquid Cup) 5 ml Q4H PRN PO cough; Start 06/12/18 at 18:00 KRISTINA ZAVALA MD Jun 12, 2018 18:24
[2018-06-12 19:59] VITALS: BP 111/78; PULSE 117; RESP 22
[2018-06-12 20:00] VITALS: PULSE 119
[2018-06-12] MEDS: ATORVASTATIN 40 MG TAB PO SCH (20:53)
[2018-06-12] MEDS: SPIRONOLACTONE 25 MG TAB PO SCH (20:53)
[2018-06-12] MEDS: SUCRALFATE (100 MG/ML) 10ML CUP PO SCH (20:53)
[2018-06-12] MEDS: GUAIFENESIN/DM 5ML CUP PO PRN (20:54)
[2018-06-12] MEDS ORDERED: POTASSIUM CHLORIDE (SR) 20 MEQ TAB PO SCH (21:00)
[2018-06-12] MEDS ORDERED: LORAZEPAM 2 MG INJ IV ONE (21:00)
--- NOTE | 2018-06-12 21:45 | CONS ---
DATE OF ADMISSION: 06/12/2018 DATE OF CONSULTATION: TYPE OF CONSULTATION: Nephrology. REASON FOR CONSULTATION: Acute kidney injury. PHYSICIAN REQUESTING CONSULT: Dr. Flores. HISTORY OF PRESENT ILLNESS: This is a 57-year-old male well known to me with a past medical history of cardiomyopathy, ejection fraction 10%, history of AFib, history of hypertension, history of dyslip idemia, previous history of acute kidney injury secondary to cardiorenal syndrome who presents to [facility] with shortness of breath and lower extremity swelling. The patient states over the past several days, he has had increased lower extremity swelling. The patient states he has not been able to take his medication. As a result of worsening swelling and shortness of breath, th e patient came to emergency room. Upon arrival, patient had a chest x-ray which showed findings of e nlarged cardiac silhouette, no acute abnormality. The patient in the emergency room was found to be hyperkalemic, had elevated BNP of 15,000. The patient was given diuretic therapy and admitted to [facility] for evaluation. In terms of patient's renal history, the patient's baseline creatinine is around 1.0 mg/dL. The tello ent had episode of acute kidney injury that has been related to cardiorenal syndrome in the past. Cu rrently, the patient presents with creatinine 1.48 mg/dL. PAST MEDICAL HISTORY: History of congestive heart failure, history of cardiomyopathy, history of acu te kidney injury, history of hypertension, history of AFib, history of dyslipidemia. PAST SURGICAL HISTORY: Reviewed. FAMILY HISTORY: No family history of kidney disease. SOCIAL HISTORY: Does not drink, smoke or do drugs. MEDICATIONS: The patient medications have been reviewed. REVIEW OF SYSTEMS: A 14-point review of systems was conducted. Pertinent positives stated in HPI, o therwise negative. PHYSICAL EXAMINATION: VITAL SIGNS: Blood pressure is 111/78, respirations 22, pulse is 117, temperature 97.7. HEENT: Head is normocephalic. NECK: Supple. Positive JVD. HEART: Regular rate. LUNGS: Show diminished breath sounds at the base. ABDOMEN: Soft, nontender to palpation without rebound or guarding. EXTREMITIES: Negative for clubbing, cyanosis. Positive edema. DERMATOLOGIC: No rashes. MUSCULOSKELETAL: No joint effusions. NEUROLOGIC: No focal deficits. LABORATORY DATA: Has been reviewed. Chest x-ray has been reviewed. ASSESSMENT AND PLAN: This is a 57-year-old male who presents with: 1. Nonoliguric acute kidney injury with previous baseline creatinine of approximately 1.0 mg/dL. Et iology of acute kidney injury is concerning for cardiorenal syndrome. Other possibilities include di uretic, SOHAIL inhibitor effect may be contributing factors. Plan at this point is to do a full evaluat ion. We will check UA with microanalysis, check urine electrolytes, calculate a fractional excretion of urea. We will continue current diuretic regimen. Monitor I's and O's closely. Otherwise, anabel nue supportive care, renally dose all meds, avoid nephrotoxins, monitor renal function closely on ARB . 2. Hypokalemia secondary to diuretic therapy. Continue aggressive repletion with potassium chloride . Continue Aldactone. 3. Mineral bone disorder, monitor calcium and phosphatase levels. 4. Acute decompensated systolic heart failure. The patient is clinically decompensated. Continue c urrent medical management. Continue diuretic therapy and Aldactone. Monitor renal function, electro lytes closely. Etiology of acute decompensation is possibly medical noncompliance. Will need to rul e out other etiologies such as acute coronary syndrome. Check serial troponins. Follow up with card iology. 5. Atrial fibrillation. Continue medical management. 6. Dyslipidemia. Continue statin therapy. 7. Cough. Possibly due to congestive heart failure exacerbation. Continue diuretic therapy and mon itor. 8. Questionable chest pain, possibly secondary to congestive heart failure exacerbation. Continue m edical management. Follow up with cardiology. Thank you, Dr. Flores, for this interesting consult. It will be a pleasure to follow patient with you t bryceout the hospital course. Dictated By: [employer]TE Conf#: [id number] DID#: [id number]
[2018-06-12] MEDS: HYDROCODONE/APAP (5/325) TAB PO PRN (23:03)
[2018-06-13] VITALS (10 sets, daily range): BP systolic 97–169; BP diastolic 61–84; PULSE 70–99; RESP 16–22
[2018-06-13] MEDS: PANTOPRAZOLE (EC) 40 MG TAB PO SCH (06:57)
[2018-06-13] MEDS: FUROSEMIDE 40 MG INJ IV SCH (06:57)
[2018-06-13] MEDS: SUCRALFATE (100 MG/ML) 10ML CUP PO SCH ×4 (08:46→20:50)
[2018-06-13] MEDS: ALLOPURINOL 300 MG TAB PO SCH (08:46)
[2018-06-13] MEDS: SPIRONOLACTONE 25 MG TAB PO SCH (08:47)
[2018-06-13] MEDS: LOSARTAN 25 MG TAB PO SCH (08:47)
[2018-06-13] MEDS ORDERED: ASPIRIN 81 MG TAB PO SCH (09:00)
--- NOTE | 2018-06-13 09:19 | PN ---
DATE: 06/13/2018 SUBJECTIVE: The patient is stable. No acute distress overnight. Patient was complaining about epis odes of anxiety. The patient does still complain of mild shortness of breath. OBJECTIVE: VITAL SIGNS: Blood pressure is 100/61, pulse 90, respirations 16, temperature 98.7. HEENT: Head is normocephalic. NECK: Supple. HEART: Regular rate. LUNGS: Show diminished breath sounds at the base. ABDOMEN: Soft, nontender to palpation without rebound or guarding. EXTREMITIES: Negative for clubbing, cyanosis. Positive edema. DERMATOLOGIC: No rashes. MUSCULOSKELETAL: No joint effusion. NEUROLOGIC: No change in exam. LABORATORY DATA: Reviewed. MEDICATIONS: Reviewed. ASSESSMENT AND PLAN: 1. Nonoliguric acute kidney injury on top of chronic kidney disease with previous baseline creatinin e 1.0 mg/dL. Etiology of acute kidney injury secondary to cardiorenal syndrome. The patient's renal function has been stable in the last 24 hours. Plan is to continue current medical management. Con tinue current diuretic regimen. Will add metolazone to augment diuresis. Will monitor renal functio n, electrolytes closely. 2. Hypokalemia secondary to diuretic therapy. Continue to monitor and replete as needed. Continue Aldactone. 3. Mineral bone disorder, monitor calcium and phosphorus levels. 4. Acute decompensated heart failure. The patient remains decompensated. Continue current medical management as stated above. Continue diuretic therapy. Follow up with cardiology. 5. . Continue medical management. 6. Dyslipidemia. Continue statin therapy. 7. Questionable chest pain, etiology may be secondary to congestive heart failure. The patient is b eing ruled out for acute coronary syndrome. Follow up with cardiology. 8. Cough. Etiology may be due to SOHAIL inhibitor effect. The patient has been switched to Cozaar. C ontinue to monitor. Dictated By: CATA GUERRERO DO NR/NTS Conf#: [id number] DID#: [id number] CC: GUSTAVO GIANG MD;*EndCC*
[2018-06-13] MEDS ORDERED: METOLAZONE 5 MG TAB PO ONE (09:30)
--- NOTE | 2018-06-13 10:12 | CONS ---
Consult Date/Type/Reason Admit Date/Time Jun 12, 2018 at 13:10 Initial Consult Date 06/12/18 Type of Consultation: cv Requesting Provider: GUSTAVO GIANG Date/Time of Note DATE: 06/13/18 TIME: 10:09 Subjective Interventional cardiology follow-up progress note Subjective: Discussed with the staff and telemetry was reviewed patient remains in atrial fibrillation heart rate has remained stable now Breathing appears to be improving. Patient said that he feels much better he was able to sleep last night he does have a cough minimally wants to eat more now Objective: General: no acute distress HEENT: NC/AT. pupils are equal. round. NECK: . no stridor. CV: RRR. systolic murmur; no gallop or rubs. PULM: no wheezing + rhonchi. GI: SOFT, NT, ND, no rebound or guarding Extremity: + B/L LE edema. no clubbing. neuro: awake and alert, OX3. Psych: calm and pleasant rectal: deferred EKG showed atrial fibrillation rapid ventricular response heart rate of about 110. In the ventricular conduction delay. Anterior infarct age undetermined Chest x-ray shows: Marked enlargement of the cardiac silhouette, related to chamber enlargement versus pericardial effusion. Objective Vitals Vital Signs Date Temp Pulse Resp B/P (MAP) Pulse Ox O2 O2 Flow FiO2 Time Delivery Rate 06/13/18 99 08:01 06/13/18 98.7 16 100/61 100 07:34 (74) 06/13/18 Nasal 2.0 04:33 Cannula Intake and Output 06/12/18 06/12/18 06/13/18 1515:00 23:00 07:00 IntakeIntake Total 260 ml 200 ml OutputOutput Total 450 ml BalanceBalance 260 ml -250 ml Results/Medications Result Diagram: 06/13/18 0520 06/13/18 0521 Results 24 hrs Laboratory Tests Test 06/12/18 11:41 06/12/18 16:20 06/12/18 22:01 06/13/18 02:00 White Blood Count 6.6 Red Blood Count 4.24 L Hemoglobin 14.6 Hematocrit 43.5 Mean Corpuscular Volume 102.6 H Mean Corpuscular 34.4 H Hemoglobin Mean Corpuscular 33.6 Hemoglobin Concent Red Cell Distribution 15.2 H Width Platelet Count 148 Mean Platelet Volume 12.5 H Immature Granulocytes % 0.300 Neutrophils % 65.6 Lymphocytes % 19.3 Monocytes % 12.4 H Eosinophils % 1.5 Basophils % 0.9 Nucleated Red Blood 0.0 Cells % Immature Granulocytes # 0.020 Neutrophils # 4.4 Lymphocytes # 1.3 Monocytes # 0.8 Eosinophils # 0.1 Basophils # 0.1 Nucleated Red Blood 0.0 Cells # Sodium Level 137 137 Potassium Level 2.9 *L 4.0 Chloride Level 96 L 93 L Carbon Dioxide Level 29 27 Anion Gap 12 17 H Blood Urea Nitrogen 37 H 40 H Creatinine 1.48 H 1.57 H Est Glomerular Filtrat 49 L 45 L Rate mL/min Glucose Level 88 101 Calcium Level 9.1 9.6 Troponin I 0.040 0.032 B-Type Natriuretic 85403 H Peptide Creatine Kinase 127 Creatine Kinase Index 2.7 Creatinine Kinase MB 3.48 H (Mass) Phosphorus Level 4.0 Albumin 4.0 Urine Color YELLOW Urine Clarity CLEAR Urine pH 5.0 Urine Specific [place] 1.013 Urine Ketones NEGATIVE Urine Nitrite NEGATIVE Urine Bilirubin NEGATIVE Urine Urobilinogen 1+ H Urine Leukocyte Esterase NEGATIVE Urine Hemoglobin NEGATIVE Urine Random Creatinine 98.00 Urine Random Sodium < 13 L Urine Glucose NEGATIVE Urine Total Protein 43.0 H Test 06/13/18 05:20 06/13/18 05:21 White Blood Count 6.5 Red Blood Count 4.07 L Hemoglobin 13.9 L Hematocrit 42.1 Mean Corpuscular Volume 103.4 H Mean Corpuscular 34.2 H Hemoglobin Mean Corpuscular 33.0 Hemoglobin Concent Red Cell Distribution 15.2 H Width Platelet Count 142 Mean Platelet Volume 12.0 H Immature Granulocytes % 0.300 Neutrophils % 58.3 Lymphocytes % 25.9 Monocytes % 12.7 H Eosinophils % 2.0 Basophils % 0.8 Nucleated Red Blood 0.0 Cells % Immature Granulocytes # 0.020 Neutrophils # 3.8 Lymphocytes # 1.7 Monocytes # 0.8 Eosinophils # 0.1 Basophils # 0.1 Nucleated Red Blood 0.0 Cells # Hemoglobin A1c 5.7 B-Type Natriuretic 39367 H Peptide Thyroid Stimulating 2.740 Hormone (TSH) Sodium Level 136 Potassium Level 4.0 Chloride Level 95 L Carbon Dioxide Level 26 Anion Gap 15 H Blood Urea Nitrogen 41 H Creatinine 1.56 H Est Glomerular Filtrat 46 L Rate mL/min Glucose Level 79 Calcium Level 9.3 Phosphorus Level 4.3 Magnesium Level 2.4 Total Bilirubin 1.4 H Direct Bilirubin 0.00 Indirect Bilirubin 1.4 H Aspartate Amino 46 Transf (AST/SGOT) Alanine 15 Aminotransferase (ALT/SG PT) Alkaline Phosphatase 174 H Total Protein 6.7 Albumin 3.7 Globulin 3.00 Albumin/Globulin Ratio 1.23 Triglycerides Level 82 Cholesterol Level 117 LDL Cholesterol, 64 Calculated HDL Cholesterol 37 Cholesterol/HDL Ratio 3.1 Free Thyroxine 1.84 H Digoxin Level < 0.4 L Home Meds Reported Medications [Potassium] No Conflict Check, 1 TAB PO BID 06/12/18 Aspirin* (Aspirin* EC) 81 Mg Tablet.dr, 81 MG PO DAILY, TAB 06/12/18 Rivaroxaban* (Xarelto*) 20 Mg Tablet, 20 MG PO WITH DINNER, TAB 06/12/18 Allopurinol* (Allopurinol*) 300 Mg Tablet, 300 MG PO DAILY, TAB 06/12/18 Furosemide* (Furosemide*) 20 Mg Tablet, 20 MG PO BID, #30 TAB 06/12/18 Digoxin* (Digitek*) 125 Mcg Tablet, 0.125 MG PO DAILY, TAB 06/12/18 Bumetanide* (Bumetanide*) 1 Mg Tablet, 1 MG PO BID, TAB 06/12/18 Atorvastatin* (Atorvastatin*) 40 Mg Tablet, 40 MG PO QHS, #30 TAB 06/12/18 Discontinued Reported Medications Rivaroxaban* (Xarelto*) 20 Mg Tablet, 20 MG PO WITH DINNER, TAB 02/23/18 Multivitamins* (Theragran*) 1 Tab Tab, 1 TAB PO DAILY, TAB 02/23/18 Digoxin* (Digitek*) 125 Mcg Tablet, 0.125 MG PO DAILY, TAB 02/23/18 Carvedilol* (Carvedilol*) 6.25 Mg Tablet, 6.25 MG PO BID, #60 TAB 02/23/18 Atorvastatin* (Atorvastatin*) 40 Mg Tablet, 40 MG PO QHS, #30 TAB 02/23/18 Discontinued Scripts Albuterol Sulfate* (Proair HFA*) 8.5 Gm Hfa.aer.ad, 2 PUFF INH Q4H PRN for WHEEZING AND SOB for 30 Days, #5 INHALER Prov:LOY STARR MD 03/01/18 Bumetanide* (Bumetanide*) 1 Mg Tablet, 1 MG PO BID DIURETICS for 30 Days, #60 TAB 5 Refills Prov:LOY STARR MD 03/01/18 Allopurinol* (Allopurinol*) 300 Mg Tablet, 300 MG PO DAILY for 30 Days, #30 TAB Prov:LOY STARR MD 03/01/18 Medications Current Medications IV Flush (NS 3 ml) 3 ml PER PROTOCOL IV ; Start 06/12/18 at 14:00 Ondansetron HCl (Zofran Inj) 4 mg Q6H PRN IV NAUSEA/VOMITING; Start 06/12/18 at 14:00 Acetaminophen (Tylenol Tab) 650 mg Q6H PRN PO .PAIN 1-3 OR TEMP; Start 06/12/18 at 14:00 Acetaminophen/ Hydrocodone Bitart ([place] (5/325)) 1 tab Q6H PRN PO .PAIN 4-6 Last administered on 06/12/18at 23:03; Admin Dose 1 TAB; Start 06/12/18 at 14:00 Morphine Sulfate (morphine) 2 mg Q4H PRN IV .PAIN 7-10; Start 06/12/18 at 14:00 Furosemide (Lasix) 40 mg BID DIURETICS IV Last administered on 06/13/18 06:57; Admin Dose 40 MG; Start 06/12/18 at 18:00 Allopurinol (Zyloprim) 300 mg DAILY PO Last administered on 06/13/18 08:46; Admin Dose 300 MG; Start 06/12/18 at 17:30 Atorvastatin Calcium (Lipitor) 40 mg QHS PO Last administered on 06/12/18at 20:53; Admin Dose 40 MG; Start 06/12/18 at 21:00 Digoxin (Digoxin) 0.125 mg DAILY@1300 PO Last administered on 06/12/18 18:06; Admin Dose 0.125 MG; Start 06/12/18 at 17:30 Pantoprazole (Protonix Tab) 40 mg DAILY@06 PO Last administered on 06/13/18 06:57; Admin Dose 40 MG; Start 06/13/18 at 06:00 Sucralfate (Carafate Susp) 1 gm QID PO Last administered on 06/13/18 08:46; Admin Dose 1 GM; Start 06/12/18 at 21:00 Rivaroxaban (Xarelto) 20 mg WITH DINNER PO ; Start 06/13/18 at 19:00 Guaifenesin/ Dextromethorphan (Robitussin Dm Liquid Cup) 5 ml Q4H PRN PO cough Last administered on 06/12/18at 20:54; Admin Dose 5 ML; Start 06/12/18 at 18:00 Spironolactone (Aldactone) 25 mg DAILY PO Last administered on 06/13/18at 08:47; Admin Dose 25 MG; Start 06/12/18 at 18:30 Losartan Potassium (Cozaar) 12.5 mg DAILY PO Last administered on 06/13/18at 08:47; Admin Dose 12.5 MG; Start 06/13/18 at 09:00 Carvedilol (Coreg) 3.125 mg BID PO Last administered on 06/13/18at 08:46; Admin Dose 3.125 MG; Start 06/12/18 at 21:00 Assessment/Plan Hospital Course (Demo Recall) Congestive heart failure: 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 Coreg. We will will start him on a 3.125 p.o. twice daily since he has not been taking his Coreg regularly Tinea with ARB Continue with Xarelto. No need for aspirin since he is already on full dose Xarelto Continue to monitor telemetry patient needs close cardiology follow-up with his regular rigger third all review DC planning for tomorrow if remains stable. I will start him on Bumex p.o. to replace the Lasix IV Thank you for his referral. We will continue to follow along with you KRISTINA ZAVALA MD [facility] KRISTINA ZAVALA MD Jun 13, 2018 10:12
[2018-06-13] MEDS: DIGOXIN 0.125 MG TAB PO SCH (13:24)
--- NOTE | 2018-06-13 16:11 | PN ---
Date/Time of Note Date/Time of Note DATE: 06/13/18 TIME: 16:09 Objective Vitals Vital Signs Date Temp Pulse Resp B/P (MAP) Pulse Ox O2 O2 Flow FiO2 Time Delivery Rate 06/13/18 98.8 76 16 130/81 95 15:27 (97) 06/13/18 Nasal 2.0 08:00 Cannula Intake and Output 06/12/18 06/12/18 06/13/18 1414:59 22:59 06:59 IntakeIntake Total 260 ml 200 ml OutputOutput Total 450 ml BalanceBalance 260 ml -250 ml Results Result Diagram: 06/13/18 0506/13/18 0521 Medications Medications Current Medications IV Flush (NS 3 ml) 3 ml PER PROTOCOL IV ; Start 06/12/18 at 14:00 Ondansetron HCl (Zofran Inj) 4 mg Q6H PRN IV NAUSEA/VOMITING; Start 06/12/18 at 14:00 Acetaminophen (Tylenol Tab) 650 mg Q6H PRN PO .PAIN 1-3 OR TEMP; Start 06/12/18 at 14:00 Acetaminophen/ Hydrocodone Bitart ([place] (5/325)) 1 tab Q6H PRN PO .PAIN 4-6 Last administered on 06/12/18at 23:03; Admin Dose 1 TAB; Start 06/12/18 at 14:00 Morphine Sulfate (morphine) 2 mg Q4H PRN IV .PAIN 7-10; Start 06/12/18 at 14:00 Allopurinol (Zyloprim) 300 mg DAILY PO Last administered on 06/13/18at 08:46; Admin Dose 300 MG; Start 06/12/18 at 17:30 Atorvastatin Calcium (Lipitor) 40 mg QHS PO Last administered on 06/12/18at 20:53; Admin Dose 40 MG; Start 06/12/18 at 21:00 Digoxin (Digoxin) 0.125 mg DAILY@1300 PO Last administered on 06/13/18at 13:24; Admin Dose 0.125 MG; Start 06/12/18 at 17:30 Pantoprazole (Protonix Tab) 40 mg DAILY@06 PO Last administered on 06/13/18at 06:57; Admin Dose 40 MG; Start 06/13/18 at 06:00 Sucralfate (Carafate Susp) 1 gm QID PO Last administered on 06/13/18 13:24; Admin Dose 1 GM; Start 06/12/18 at 21:00 Rivaroxaban (Xarelto) 20 mg WITH DINNER PO ; Start 06/13/18 at 19:00 Guaifenesin/ Dextromethorphan (Robitussin Dm Liquid Cup) 5 ml Q4H PRN PO cough Last administered on 06/12/18 20:54; Admin Dose 5 ML; Start 06/12/18 at 18:00 Spironolactone (Aldactone) 25 mg DAILY PO Last administered on 06/13/18 08:47; Admin Dose 25 MG; Start 06/12/18 at 18:30 Losartan Potassium (Cozaar) 12.5 mg DAILY PO Last administered on 06/13/18 08:47; Admin Dose 12.5 MG; Start 06/13/18 at 09:00 Carvedilol (Coreg) 3.125 mg BID PO Last administered on 06/13/18 08:46; Admin Dose 3.125 MG; Start 06/12/18 at 21:00 Bumetanide (Bumex) 2 mg BID DIURETICS PO ; Start 06/13/18 at 18:00 VTE Prophylaxis Risk score (from Ns)>0 risk: 1 SCD applied (from Ns): No SCD contraindication: other Lines/Catheters IV Catheter Type: Romero in Place: No Cont'd romero catheter reason: terminal illness/intractable pain Assessment/Plan Hospital Course Subjective Patient doing okay but just had a panic attack, back to baseline, acid reflux is significantly improved Objective Physical exam General: Patient is laying in bed and answers questions appropriately Mentation: Patient is alert and oriented 4, Head: Normocephalic atraumatic Eyes: EOMI, pupils reactive to light Neck: Supple, nontender, midline Respiratory: Coarse to auscultation bilaterally Cardiovascular: regular rate, no obvious murmurs Gastrointestinal: non-tender to palpation, bowel sounds heard. Neurological: Moves all extremities spontaneously Musculoskeletal: 2+ pitting edema bilaterally Assessment and plan CHF exacerbation -Cardiology consulted -Likely a combination of medication noncompliance as patient is not the most r eliable source and he admittedly has not been able to take some of his medications. -IV Lasix changed now to p.o. medications -Additional medications per cardiology Cough -Secondary to above CHF exacerbation -Robitussin as needed likely will not go away until CHF is under control Questionable chest pain -ED was concerned about chest pain however patient denies any chest pain or shortness of breath, however patient may be getting the story mixed up or may be secondary to atypical chest pain from his acid reflux, however since it may be atypical, -Troponin negative Lower extremity edema -Secondary to above CHF exacerbation -Ultrasound obtained to rule out DVT, unlikely DVT however -Patient feeling mild numbness, will consult vascular surgeon for opinion Acid reflux -Appears to be fairly severe as patient is experiencing difficulty with occasional coughing up his medications due to what he states is foam from acid reflux -PPI, Carafate for now and assess A. fib -Patient on Xarelto at home, continue Xarelto Acute kidney injury versus chronic kidney disease -Patient had similar presentation on previous admission -Nephrology consulted Dyslipidemia -Continue atorvastatin Hypo-kalemia -Replete as needed Disposition -Cardiology and nephrology consulted, recommendations appreciated GUSTAVO GIANG Jun 13, 2018 16:11
[2018-06-13] MEDS: BUMETANIDE 1 MG TAB PO SCH (18:07)
[2018-06-13] MEDS: RIVAROXABAN 20 MG TABLET PO SCH (18:07)
[2018-06-13] MEDS: ATORVASTATIN 40 MG TAB PO SCH (20:50)
[2018-06-13] MEDS: HYDROCODONE/APAP (5/325) TAB PO PRN (20:53)
[2018-06-14] VITALS (10 sets, daily range): BP systolic 91–101; BP diastolic 64–75; PULSE 52–100; RESP 18–20
[2018-06-14] MEDS: HYDROCODONE/APAP (5/325) TAB PO PRN ×2 (04:23→21:25)
[2018-06-14] MEDS: BUMETANIDE 1 MG TAB PO SCH ×2 (05:06→17:06)
[2018-06-14] MEDS: PANTOPRAZOLE (EC) 40 MG TAB PO SCH (05:06)
[2018-06-14] MEDS ORDERED: POTASSIUM CHLORIDE (SR) 20 MEQ TAB PO STA ×2 (06:57→08:49)
[2018-06-14] MEDS: SUCRALFATE (100 MG/ML) 10ML CUP PO SCH ×4 (08:44→21:25)
[2018-06-14] MEDS: GUAIFENESIN/DM 5ML CUP PO PRN ×2 (08:45→21:25)
[2018-06-14] MEDS: ALLOPURINOL 300 MG TAB PO SCH (08:48)
[2018-06-14] MEDS: SPIRONOLACTONE 25 MG TAB PO SCH (08:48)
[2018-06-14] MEDS: LOSARTAN 25 MG TAB PO SCH (08:49)
--- NOTE | 2018-06-14 09:25 | CONS ---
Consult Date/Type/Reason Admit Date/Time Jun 12, 2018 at 13:10 Initial Consult Date 06/12/18 Type of Consultation: cv Requesting Provider: GUSTAVO GIANG Date/Time of Note DATE: 06/14/18 TIME: 09:24 Subjective Interventional cardiology follow-up progress note Subjective: Discussed with the staff and telemetry was reviewed patient remains in atrial fibrillation heart rate has remained stable now Breathing appears to be improving. NO MORE cough no bleeding Objective: General: no acute distress HEENT: NC/AT. pupils are equal. round. NECK: . no stridor. CV: irregularly irregular . systolic murmur; no gallop or rubs. PULM: no wheezing + rhonchi. GI: SOFT, NT, ND, no rebound or guarding Extremity: + B/L LE edema. no clubbing. neuro: awake and alert, OX3. Psych: calm and pleasant rectal: deferred EKG showed atrial fibrillation rapid ventricular response heart rate of about 110. In the ventricular conduction delay. Anterior infarct age undetermined Chest x-ray shows: Marked enlargement of the cardiac silhouette, related to chamber enlargement versus pericardial effusion. Objective Vitals Vital Signs Date Temp Pulse Resp B/P (MAP) Pulse Ox O2 O2 Flow FiO2 Time Delivery Rate 06/14/18 87 08:42 06/14/18 98.0 19 93/73 (80) 95 07:51 06/14/18 2.0 00:51 06/13/18 Nasal 19:30 Cannula Intake and Output 06/13/18 06/13/18 06/14/18 1515:00 23:00 07:00 IntakeIntake Total 1200 ml 1400 ml OutputOutput Total 1350 ml 2400 ml BalanceBalance -150 ml -1000 ml Results/Medications Result Diagram: 06/14/18 0541 06/14/18 0541 Results 24 hrs Laboratory Tests Test 06/13/18 11:21 06/14/18 05:41 Troponin I 0.027 White Blood Count 6.1 Red Blood Count 4.03 L Hemoglobin 13.8 L Hematocrit 42.1 Mean Corpuscular Volume 104.5 H Mean Corpuscular Hemoglobin 34.2 H Mean Corpuscular Hemoglobin Concent 32.8 Red Cell Distribution Width 15.2 H Platelet Count 125 L Mean Platelet Volume 12.5 H Immature Granulocytes % 0.300 Neutrophils % 70.0 Lymphocytes % 18.6 Monocytes % 8.1 Eosinophils % 2.3 Basophils % 0.7 Nucleated Red Blood Cells % 0.0 Immature Granulocytes # 0.020 Neutrophils # 4.3 Lymphocytes # 1.1 Monocytes # 0.5 Eosinophils # 0.1 Basophils # 0.0 Nucleated Red Blood Cells # 0.0 Sodium Level 136 Potassium Level 3.2 L Chloride Level 93 L Carbon Dioxide Level 31 Anion Gap 12 Blood Urea Nitrogen 47 H Creatinine 1.61 H Est Glomerular Filtrat Rate mL/min 44 L Glucose Level 83 Calcium Level 8.9 Phosphorus Level 4.2 Magnesium Level 2.1 Total Bilirubin 0.9 Direct Bilirubin 0.00 Indirect Bilirubin 0.9 Aspartate Amino Transf (AST/SGOT) 40 Alanine Aminotransferase (ALT/SGPT) 22 Alkaline Phosphatase 156 H B-Type Natriuretic Peptide 8680 H Total Protein 6.2 Albumin 3.4 Globulin 2.80 Albumin/Globulin Ratio 1.21 Home Meds Reported Medications [Potassium] No Conflict Check, 1 TAB PO BID 06/12/18 Aspirin* (Aspirin* EC) 81 Mg Tablet.dr, 81 MG PO DAILY, TAB 06/12/18 Rivaroxaban* (Xarelto*) 20 Mg Tablet, 20 MG PO WITH DINNER, TAB 06/12/18 Allopurinol* (Allopurinol*) 300 Mg Tablet, 300 MG PO DAILY, TAB 06/12/18 Furosemide* (Furosemide*) 20 Mg Tablet, 20 MG PO BID, #30 TAB 06/12/18 Digoxin* (Digitek*) 125 Mcg Tablet, 0.125 MG PO DAILY, TAB 06/12/18 Bumetanide* (Bumetanide*) 1 Mg Tablet, 1 MG PO BID, TAB 06/12/18 Atorvastatin* (Atorvastatin*) 40 Mg Tablet, 40 MG PO QHS, #30 TAB 06/12/18 Discontinued Reported Medications Rivaroxaban* (Xarelto*) 20 Mg Tablet, 20 MG PO WITH DINNER, TAB 02/23/18 Multivitamins* (Theragran*) 1 Tab Tab, 1 TAB PO DAILY, TAB 02/23/18 Digoxin* (Digitek*) 125 Mcg Tablet, 0.125 MG PO DAILY, TAB 02/23/18 Carvedilol* (Carvedilol*) 6.25 Mg Tablet, 6.25 MG PO BID, #60 TAB 02/23/18 Atorvastatin* (Atorvastatin*) 40 Mg Tablet, 40 MG PO QHS, #30 TAB 02/23/18 Discontinued Scripts Albuterol Sulfate* (Proair HFA*) 8.5 Gm Hfa.aer.ad, 2 PUFF INH Q4H PRN for WHEEZING AND SOB for 30 Days, #5 INHALER Prov:LOY STARR MD 03/01/18 Bumetanide* (Bumetanide*) 1 Mg Tablet, 1 MG PO BID DIURETICS for 30 Days, #60 TAB 5 Refills Prov:LOY STARR MD 03/01/18 Allopurinol* (Allopurinol*) 300 Mg Tablet, 300 MG PO DAILY for 30 Days, #30 TAB Prov:LOY STARR MD 03/01/18 Medications Current Medications IV Flush (NS 3 ml) 3 ml PER PROTOCOL IV ; Start 06/12/18 at 14:00 Ondansetron HCl (Zofran Inj) 4 mg Q6H PRN IV NAUSEA/VOMITING; Start 06/12/18 at 14:00 Acetaminophen (Tylenol Tab) 650 mg Q6H PRN PO .PAIN 1-3 OR TEMP; Start 06/12/18 at 14:00 Acetaminophen/ Hydrocodone Bitart ([place] (5/325)) 1 tab Q6H PRN PO .PAIN 4-6 Last administered on 06/14/18at 04:23; Admin Dose 1 TAB; Start 06/12/18 at 14:00 Morphine Sulfate (morphine) 2 mg Q4H PRN IV .PAIN 7-10; Start 06/12/18 at 14:00 Allopurinol (Zyloprim) 300 mg DAILY PO Last administered on 06/14/18at 08:48; Admin Dose 300 MG; Start 06/12/18 at 17:30 Atorvastatin Calcium (Lipitor) 40 mg QHS PO Last administered on 06/13/18at 20:50; Admin Dose 40 MG; Start 06/12/18 at 21:00 Digoxin (Digoxin) 0.125 mg DAILY@1300 PO Last administered on 06/13/18at 13:24; Admin Dose 0.125 MG; Start 06/12/18 at 17:30 Pantoprazole (Protonix Tab) 40 mg DAILY@06 PO Last administered on 06/14/18at 05:06; Admin Dose 40 MG; Start 06/13/18 at 06:00 Sucralfate (Carafate Susp) 1 gm QID PO Last administered on 06/14/18 08:44; Admin Dose 1 GM; Start 06/12/18 at 21:00 Rivaroxaban (Xarelto) 20 mg WITH DINNER PO Last administered on 06/13/18 18:07; Admin Dose 20 MG; Start 06/13/18 at 19:00 Guaifenesin/ Dextromethorphan (Robitussin Dm Liquid Cup) 5 ml Q4H PRN PO cough Last administered on 06/14/18 08:45; Admin Dose 5 ML; Start 06/12/18 at 18:00 Spironolactone (Aldactone) 25 mg DAILY PO Last administered on 06/14/18 08:48; Admin Dose 25 MG; Start 06/12/18 at 18:30 Losartan Potassium (Cozaar) 12.5 mg DAILY PO Last administered on 06/13/18 08:47; Admin Dose 12.5 MG; Start 06/13/18 at 09:00 Carvedilol (Coreg) 3.125 mg BID PO Last administered on 06/13/18 20:50; Admin Dose 3.125 MG; Start 06/12/18 at 21:00 Bumetanide (Bumex) 2 mg BID DIURETICS PO Last administered on 06/14/18 05:06; Admin Dose 2 MG; Start 06/13/18 at 18:00 Assessment/Plan Hospital Course (Demo Recall) Congestive heart failure: Acute on 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 We will will start him on a 3.125 p.o. twice daily since he has not been taking his Coreg regularly cont ARB Continue with Xarelto. No need for aspirin since he is already on full dose Xarelto Continue to monitor telemetry patient needs close cardiology follow-up with his regular energy consultant all review DC planning as per IM Cont bumex Thank you for his referral. We will continue to follow along with you KRISTINA ZAVALA MD [facility] KRISTINA ZAVALA MD Jun 14, 2018 09:25
--- NOTE | 2018-06-14 09:29 | PN ---
DATE: 06/14/2018 SUBJECTIVE: The patient remains stable. The patient's shortness of breath has improved. OBJECTIVE: VITAL SIGNS: Blood pressure is 93/73, pulse 87, temperature 98.0. HEENT: Head is normocephalic. NECK: Supple. HEART: Regular rate. LUNGS: Show diminished breath sounds at the base. ABDOMEN: Soft, nontender to palpation without rebound or guarding. EXTREMITIES: Negative for clubbing, cyanosis. Positive edema, improving. DERMATOLOGIC: No rashes. MUSCULOSKELETAL: No joint effusion. NEUROLOGIC: No change in exam. MEDICATIONS: The patient's medications have been reviewed. LABORATORY DATA: Shows sodium 136, potassium 3.2, BUN 47, creatinine 1.61. Patient's CBC was review ed. ASSESSMENT AND PLAN: 1. Nonoliguric acute kidney injury on top of chronic kidney disease with previous baseline creatinin e 1.0 mg/dL. Etiology is secondary to cardiorenal syndrome. The patient's renal function is fluctua ting, slightly declined in the last 24 hours. Likely due to ongoing diuretic therapy. RECOMMENDATIONS: 1. Continue current diuretic regimen. We will hold metolazone today to enable fluid to mobilize. W ill monitor electrolytes, renal function closely. 2. Hypokalemia. Continue diuretic therapy, continue Aldactone. We will replete with potassium chlo ride. 3. Mineral bone disorder, monitor calcium and phosphorus levels. 4. Acute decompensated heart failure. Continue current diuretic therapy, adjust as needed. 5. Dyslipidemia. Continue statin therapy. 6. Coronary artery disease. Continue medical management. 7. Cough, possible SOHAIL inhibitor effect. Agree with switching to Cozaar. 8. Chest pain, improving. Dictated By: CATA GUERRERO DO NR/NTS Conf#: [id number] DID#: [id number] CC: GUSTAVO GIANG MD; KRISTINA ZAVALA MD;*EndCC*
--- NOTE | 2018-06-14 10:45 | RADRPT ---
Echocardiogram Report Patient Name: JESSICA MASSEYPatient ID: [id number] : 1960 (57y 11m)Study Date: 06/13/2018 1:05:42 PM Gender: MAccession #: [id number] Tech: LE Location: Ref.Physician: GUSTAVO GIANG Height(Cm): BSA: Weight(Kg): Quality: GoodAccount #: Procedures: Echocardiographic Report: Transthoracic echocardiogram with complete 2D, M-Mode, and doppler examination. Indications: Congestive Heart Failure. Measurements: 2D/M Mode Doppler Measurement Value Normal Range Measurement Value Normal Range LVIDd 2D 7.1 [ 4.2 - 5.8 ] cm DWAIN VTI 3.1 [ 2.0 - 4.0 ] cm2 LVIDs 2D 6.8 [ 2.5 - 4.0 ] cm AV Mean Sebastian 0.6 [ 70.0 - 90.0 ] cm/sec LVPWd 2D 1.1 [ 0.6 - 1.0 ] cm AV Mean PG 1.0 [ 2.0 - 4.0 ] mmHg IVSd 2D 1.0 [ 0.6 - 1.0 ] cm AV VTI 10.7 cm EF 2D 11.3 [ 52.0 - 72.0 ] percent LVOT Mean Sebastian 0.5 [ 60.0 - 80.0 ] cm/sec LVOT Diam 2.1 [ 2.3 - 2.9 ] cm LVOT Mean PG 1.0 [ 1.0 - 3.0 ] mmHg LVOT Peak Sebastian 0.7 [ 70.0 - 110.0 ] cm/sec LVOT Peak PG 2.0 [ 2.0 - 6.0 ] mmHg LVOT VTI 9.4 [ 20.0 - 30.0 ] cm MV E Peak Sebastian 0.9 [ 60.0 - 130.0 ] cm/sec MV A Peak Sebastian 0.3 [ 100.0 - 120.0 ] cm/sec MV E/A 3.4 [ 0.8 - 1.5 ] ratio MV Decel Time 134 [ 104 - 258 ] msec Lat E` Sebastian 0.1 [ 10.0 - 15.0 ] cm/sec Lateral E/E` 14.2 [ 1.0 - 2.0 ] ratio Med E` Sebastian 0.0 cm/sec MV E/A 3.4 [ 0.8 - 1.5 ] ratio TR Peak Sebastian 2.6 [ 100.0 - 280.0 ] cm/sec TR Peak PG 27.0 mmHg PV Peak Sebastian 0.4 [ 40.0 - 80.0 ] cm/sec PV Peak PG 1.0 mmHg Findings: Left Ventricle: Normal left ventricular wall thickness. Severe enlargement of left ventricle cavity. Severe left ventricular systolic dysfunction. Ejection fraction is visually estimated at 10 %. Tissue Doppler/Mitral Doppler indices are consistent with restrictive physiology with markedly elevated left atrial pressure (Stage III-IV diastolic dysfunction). Right Ventricle: Moderate right ventricular systolic dysfunction. Severe enlargement of right ventricle. Left Atrium: There is severe enlargement of left atrium. Right Atrium: There is severe enlargement of right atrium. Mitral Valve: Mitral valve leaflets appear mildly thickened. Mild mitral annular calcification. Mild mitral valve regurgitation. Aortic Valve: Normal appearance of the aortic valve. No significant aortic stenosis with insufficiency. Tricuspid Valve: Normal appearance of the tricuspid valve. Right ventricular systolic pressure is consistent with mild pulmonary hypertension. Estimated peak PA systolic pressure 42 mmHg. There is mild tricuspid regurgitation. Pulmonic Valve: Normal pulmonic valve appearance. There is trace pulmonic regurgitation. Pericardium: Trivial pericardial effusion. Aorta: Not well visualized. IVC: Dilated IVC without respiratory collapse consistent with elevated right atrial pressure. Conclusions: There is severe enlargement of left atrium. There is severe enlargement of right atrium. Moderate right ventricular systolic dysfunction. Severe enlargement of right ventricle. Normal left ventricular wall thickness. Severe enlargement of left ventricle cavity. Severe left ventricular systolic dysfunction. Ejection fraction is visually estimated at 10 %. Tissue Doppler/Mitral Doppler indices are consistent with restrictive physiology with markedly elevated left atrial pressure (Stage III-IV diastolic dysfunction). Mitral valve leaflets appear mildly thickened. Mild mitral annular calcification. Mild mitral valve regurgitation. Normal appearance of the aortic valve. No significant aortic stenosis with insufficiency. Normal appearance of the tricuspid valve. Right ventricular systolic pressure is consistent with mild pulmonary hypertension. Estimated peak PA systolic pressure 42 mmHg. There is mild tricuspid regurgitation. Dilated IVC without respiratory collapse consistent with elevated right atrial pressure. Electronically Signed By: Eddie Lazcano 2018-06-14 10:44:13 PDT
[2018-06-14] MEDS: DIGOXIN 0.125 MG TAB PO SCH (12:39)
--- NOTE | 2018-06-14 14:02 | PN ---
Date/Time of Note Date/Time of Note DATE: 06/14/18 TIME: 14:00 Objective Vitals Vital Signs Date Temp Pulse Resp B/P (MAP) Pulse Ox O2 O2 Flow FiO2 Time Delivery Rate 06/14/18 84 13:09 06/14/18 97.9 19 91/64 (73) 93 11:22 06/14/18 2.0 00:51 06/13/18 Nasal 19:30 Cannula Intake and Output 06/13/18 06/13/18 06/14/18 1515:00 23:00 07:00 IntakeIntake Total 1200 ml 1400 ml OutputOutput Total 1350 ml 2400 ml BalanceBalance -150 ml -1000 ml Results Result Diagram: 06/14/18 0541 06/14/1841 Medications Medications Current Medications IV Flush (NS 3 ml) 3 ml PER PROTOCOL IV ; Start 06/12/18 at 14:00 Ondansetron HCl (Zofran Inj) 4 mg Q6H PRN IV NAUSEA/VOMITING; Start 06/12/18 at 14:00 Acetaminophen (Tylenol Tab) 650 mg Q6H PRN PO .PAIN 1-3 OR TEMP; Start 06/12/18 at 14:00 Acetaminophen/ Hydrocodone Bitart ([place] (5/325)) 1 tab Q6H PRN PO .PAIN 4-6 Last administered on 06/14/18at 04:23; Admin Dose 1 TAB; Start 06/12/18 at 14:00 Morphine Sulfate (morphine) 2 mg Q4H PRN IV .PAIN 7-10; Start 06/12/18 at 14:00 Allopurinol (Zyloprim) 300 mg DAILY PO Last administered on 06/14/18at 08:48; Admin Dose 300 MG; Start 06/12/18 at 17:30 Atorvastatin Calcium (Lipitor) 40 mg QHS PO Last administered on 06/13/18at 20:50; Admin Dose 40 MG; Start 06/12/18 at 21:00 Digoxin (Digoxin) 0.125 mg DAILY@1300 PO Last administered on 06/14/18at 12:39; Admin Dose 0.125 MG; Start 06/12/18 at 17:30 Pantoprazole (Protonix Tab) 40 mg DAILY@06 PO Last administered on 06/14/18at 05:06; Admin Dose 40 MG; Start 06/13/18 at 06:00 Sucralfate (Carafate Susp) 1 gm QID PO Last administered on 06/14/18 12:38; Ad min Dose 1 GM; Start 06/12/18 at 21:00 Rivaroxaban (Xarelto) 20 mg WITH DINNER PO Last administered on 06/13/18 18:07; Admin Dose 20 MG; Start 06/13/18 at 19:00 Guaifenesin/ Dextromethorphan (Robitussin Dm Liquid Cup) 5 ml Q4H PRN PO cough Last administered on 06/14/18 08:45; Admin Dose 5 ML; Start 06/12/18 at 18:00 Spironolactone (Aldactone) 25 mg DAILY PO Last administered on 06/14/18 08:48; Admin Dose 25 MG; Start 06/12/18 at 18:30 Losartan Potassium (Cozaar) 12.5 mg DAILY PO Last administered on 06/13/18 08:47; Admin Dose 12.5 MG; Start 06/13/18 at 09:00 Bumetanide (Bumex) 2 mg BID DIURETICS PO Last administered on 06/14/18 05:06; Admin Dose 2 MG; Start 06/13/18 at 18:00 Metoprolol Succinate (Toprol Xl) 12.5 mg DAILY PO ; Start 06/15/18 at 09:00 VTE Prophylaxis Risk score (from Ns)>0 risk: 3 SCD applied (from [facility] [place] No SCD contraindication: other Lines/Catheters IV Catheter Type: [place] in Place: No Assessment/Plan Hospital Course Subjective Patient doing well, states that his legs have improved and his acid reflux is completely gone. Objective Physical exam General: Patient is laying in bed and answers questions appropriately Mentation: Patient is alert and oriented 4, Head: Normocephalic atraumatic Eyes: EOMI, pupils reactive to light Neck: Supple, nontender, midline Respiratory: Coarse to auscultation bilaterally Cardiovascular: regular rate, no obvious murmurs Gastrointestinal: non-tender to palpation, bowel sounds heard. Neurological: Moves all extremities spontaneously Musculoskeletal: 2+ pitting edema bilaterally Assessment and plan CHF exacerbation, resolving -Cardiology consulted -Likely a combination of medication noncompliance as patient is not the most reliable source and he admittedly has not been able to take some of his medications. -IV Lasix changed now to p.o. medications -Additional medications per cardiology Cough, resolving -Secondary to above CHF exacerbation -Robitussin as needed likely will not go away until CHF is under control Questionable chest pain -ED was concerned about chest pain however patient denies any chest pain or shortness of breath, however patient may be getting the story mixed up or may be secondary to atypical chest pain from his acid reflux, however since it may be atypical, -Troponin negative Lower extremity edema -Secondary to above CHF exacerbation -Ultrasound obtained to rule out DVT, unlikely DVT however -Patient feeling mild numbness, will consult vascular surgeon for opinion, arterial studies ordered Acid reflux -Appears to be fairly severe as patient is experiencing difficulty with occasional coughing up his medications due to what he states is foam from acid reflux -PPI, Carafate for now and assess -Acid reflux has resolved A. fib -Patient on Xarelto at home, continue Xarelto Acute kidney injury versus chronic kidney disease -Patient had similar presentation on previous admission -Nephrology consulted Dyslipidemia -Continue atorvastatin Hypo-kalemia -Replete as needed Disposition -Cardiology and nephrology consulted, recommendations appreciated GUSTAVO GIANG Jun 14, 2018 14:02
[2018-06-14] MEDS: RIVAROXABAN 20 MG TABLET PO SCH (17:06)
--- NOTE | 2018-06-14 18:27 | CONS ---
DATE OF ADMISSION: 06/12/2018 DATE OF CONSULTATION: 06/14/2018 REFERRING PHYSICIAN: Gustavo Giang MD REASON FOR CONSULTATION: Bilateral lower extremity edema and venous stasis changes. HISTORY OF PRESENT ILLNESS: This is a 57-year-old gentleman with severe cardiomyopathy, has an EF of 10%. He has AFib, hypertension and hyperlipidemia. He came in basically with CHF exacerbation. He stopped taking his Lasix. He said he was unable to swallow them. He became diffusely edematous and short of breath. His legs are very swollen and had purplish discoloration. Dr. Giang wanted me to ev aluate him and make sure there was not some vascular abnormality. He denies having any pain in his l egs. He had a venous duplex scan several days ago showed no DVT bilaterally and basically normal rosana w. PAST MEDICAL HISTORY: Again significant for CHF with severe cardiomyopathy. He has AFib. He is on Xarelto at home on a regular basis. He has chronic kidney disease and some acute exacerbation, hyper lipidemia. He does have a history of hepatitis C and may have some cirrhosis as well, just based on description of abdominal and lower extremity edema. MEDICATIONS: Consist of: 1. Potassium. 2. Aspirin. 3. Xarelto. 4. Allopurinol. 5. Lasix. 6. Digitek. 7. Bumex. 8. Atorvastatin. Xarelto is currently on hold. ALLERGIES: NO KNOWN DRUG ALLERGIES. PAST SURGICAL HISTORY: He denies any previous surgical history. SOCIAL HISTORY: He is a nonsmoker. He does not drink or use any illicit drugs. REVIEW OF SYSTEMS: Currently denies any chest pain or shortness of breath. He says he has trouble s wallowing. He says when he gets up in the morning he feels fine, then when he tries to swallow he is unable and then started having swelling and pain in the legs. He has not been using any compression stockings at home. He denies any fevers or chills. No nausea, vomiting, diarrhea. No recent weigh t gain or weight loss. PHYSICAL EXAMINATION GENERAL: He is a middle-aged gentleman. He appears much older than stated age. VITAL SIGNS: He has been afebrile. His blood pressure is 91/64, heart rate 84, respiratory rate is 19, he is 93% sat on 2-liter nasal cannula. PERIPHERAL VASCULAR: He has 2+ radial and brachial pulses bilaterally. LUNGS: Clear. HEART: Irregularly irregular. ABDOMEN: Soft, nontender, nondistended. He is a little bit distended. It may be fluid rather than bowel gas. EXTREMITIES: He has 2+ femoral pulses bilaterally. I do not feel popliteal, DP or PT pulses in eith er lower extremity. He also has sort of purplish discoloration over the distal calf and feet, but no wounds and he has normal motor and sensory function. There is brisk refill. DIAGNOSTIC DATA: Again, he had a venous duplex scan done 2 days ago that showed no DVT. IMPRESSION: Bilateral lower extremity edema, chronic venous hypertension and venous insufficiency du e to severe congestive heart failure and cardiomyopathy. He has congestive venous hypertension. He has no deep venous thrombosis yet. He in long-term should be using compression stockings. I am ainsley g to order some АЛЕКСАНДР hose knee high to use while he is in the hospital here and probably elevate his l egs when he can. He said today the swelling is really minimal but when he is bed basically for the p or 2. I am also going to order arterial duplex because it looks he has baseline arterial dis ease as well, but there are no wounds, no real need for any intervention at this time. Dictated By: NOA ORTEGA/ANTOINETTE Conf#: [id number] DID#: [id number] CC: KRISTINA ZAVALA MD; GUSTAVO GIANG MD;*End*
[2018-06-14] MEDS: ATORVASTATIN 40 MG TAB PO SCH (22:02)
[2018-06-15] VITALS (9 sets, daily range): BP systolic 92–115; BP diastolic 60–77; PULSE 64–94; RESP 18
[2018-06-15] MEDS: PANTOPRAZOLE (EC) 40 MG TAB PO SCH (05:39)
[2018-06-15] MEDS: BUMETANIDE 1 MG TAB PO SCH (05:39)
[2018-06-15] MEDS ORDERED: POTASSIUM CHLORIDE (SR) 20 MEQ TAB PO STA ×2 (08:06→09:19)
--- NOTE | 2018-06-15 08:06 | CONS ---
Consult Date/Type/Reason Admit Date/Time Jun 12, 2018 at 13:10 Initial Consult Date 06/12/18 Type of Consultation: cv Requesting Provider: GUSTAVO GIANG Date/Time of Note DATE: 06/15/18 TIME: 08:05 Subjective Interventional cardiology follow-up progress note Subjective: Discussed with the staff and telemetry was reviewed patient remains in atrial fibrillation heart rate has remained stable now Breathing appears to be improving. NO MORE cough His lower extremity edema is significantly no bleeding Objective: General: no acute distress HEENT: NC/AT. pupils are equal. round. NECK: . no stridor. CV: irregularly irregular . systolic murmur; no gallop or rubs. PULM: no wheezing + rhonchi. GI: SOFT, NT, ND, no rebound or guarding Extremity: Significantly decreased LE edema. no clubbing. neuro: awake and alert, OX3. Psych: calm and pleasant rectal: deferred EKG showed atrial fibrillation rapid ventricular response heart rate of about 110. In the ventricular conduction delay. Anterior infarct age undetermined Chest x-ray shows: Marked enlargement of the cardiac silhouette, related to chamber enlargement versus pericardial effusion. Objective Vitals Vital Signs Date Temp Pulse Resp B/P (MAP) Pulse Ox O2 O2 Flow FiO2 Time Delivery Rate 06/15/18 98.1 79 18 107/77 94 07:21 (87) 06/14/18 Nasal 2.0 20:05 Cannula Intake and Output 06/14/18 06/14/18 06/15/18 1515:00 23:00 07:00 IntakeIntake Total 800 ml OutputOutput Total 1100 ml 500 ml 6000 ml BalanceBalance -1100 ml -500 ml -5200 ml Results/Medications Result Diagram: 06/15/18 0601 06/15/18 06 Results 24 hrs Laboratory Tests Test 06/15/18 06:01 White Blood Count 6.2 Red Blood Count 4.13 L Hemoglobin 14.1 Hematocrit 42.5 Mean Corpuscular Volume 102.9 H Mean Corpuscular Hemoglobin 34.1 H Mean Corpuscular Hemoglobin Concent 33.2 Red Cell Distribution Width 15.0 H Platelet Count 140 Mean Platelet Volume 12.5 H Immature Granulocytes % 0.500 H Neutrophils % 66.0 Lymphocytes % 19.8 Monocytes % 10.9 Eosinophils % 2.1 Basophils % 0.7 Nucleated Red Blood Cells % 0.0 Immature Granulocytes # 0.030 Neutrophils # 4.1 Lymphocytes # 1.2 Monocytes # 0.7 Eosinophils # 0.1 Basophils # 0.0 Nucleated Red Blood Cells # 0.0 Sodium Level 137 Potassium Level 3.3 L Chloride Level 94 L Carbon Dioxide Level 32 H Anion Gap 11 Blood Urea Nitrogen 47 H Creatinine 1.28 H Est Glomerular Filtrat Rate mL/min 58 L Glucose Level 74 Calcium Level 9.1 Phosphorus Level 3.8 Magnesium Level 1.8 Home Meds Reported Medications [Potassium] No Conflict Check, 1 TAB PO BID 06/12/18 Aspirin* (Aspirin* EC) 81 Mg Tablet.dr, 81 MG PO DAILY, TAB 06/12/18 Rivaroxaban* (Xarelto*) 20 Mg Tablet, 20 MG PO WITH DINNER, TAB 06/12/18 Allopurinol* (Allopurinol*) 300 Mg Tablet, 300 MG PO DAILY, TAB 06/12/18 Furosemide* (Furosemide*) 20 Mg Tablet, 20 MG PO BID, #30 TAB 06/12/18 Digoxin* (Digitek*) 125 Mcg Tablet, 0.125 MG PO DAILY, TAB 06/12/18 Bumetanide* (Bumetanide*) 1 Mg Tablet, 1 MG PO BID, TAB 06/12/18 Atorvastatin* (Atorvastatin*) 40 Mg Tablet, 40 MG PO QHS, #30 TAB 06/12/18 Discontinued Reported Medications Rivaroxaban* (Xarelto*) 20 Mg Tablet, 20 MG PO WITH DINNER, TAB 02/23/18 Multivitamins* (Theragran*) 1 Tab Tab, 1 TAB PO DAILY, TAB 02/23/18 Digoxin* (Digitek*) 125 Mcg Tablet, 0.125 MG PO DAILY, TAB 02/23/18 Carvedilol* (Carvedilol*) 6.25 Mg Tablet, 6.25 MG PO BID, #60 TAB 02/23/18 Atorvastatin* (Atorvastatin*) 40 Mg Tablet, 40 MG PO QHS, #30 TAB 02/23/18 Discontinued Scripts Albuterol Sulfate* (Proair HFA*) 8.5 Gm Hfa.aer.ad, 2 PUFF INH Q4H PRN for WHEEZING AND SOB for 30 Days, #5 INHALER Prov:LOY STARR MD 03/01/18 Bumetanide* (Bumetanide*) 1 Mg Tablet, 1 MG PO BID DIURETICS for 30 Days, #60 TAB 5 Refills Prov:LOY STARR MD 03/01/18 Allopurinol* (Allopurinol*) 300 Mg Tablet, 300 MG PO DAILY for 30 Days, #30 TAB Prov:LOY STARR MD 03/01/18 Medications Current Medications IV Flush (NS 3 ml) 3 ml PER PROTOCOL IV ; Start 06/12/18 at 14:00 Ondansetron HCl (Zofran Inj) 4 mg Q6H PRN IV NAUSEA/VOMITING; Start 06/12/18 at 14:00 Acetaminophen (Tylenol Tab) 650 mg Q6H PRN PO .PAIN 1-3 OR TEMP; Start 06/12/18 at 14:00 Acetaminophen/ Hydrocodone Bitart ([place] (5/325)) 1 tab Q6H PRN PO .PAIN 4-6 Last administered on 06/14/18at 21:25; Admin Dose 1 TAB; Start 06/12/18 at 14:00 Morphine Sulfate (morphine) 2 mg Q4H PRN IV .PAIN 7-10; Start 06/12/18 at 14:00 Allopurinol (Zyloprim) 300 mg DAILY PO Last administered on 06/14/18at 08:48; Admin Dose 300 MG; Start 06/12/18 at 17:30 Atorvastatin Calcium (Lipitor) 40 mg QHS PO Last administered on 06/14/18at 22:02; Admin Dose 40 MG; Start 06/12/18 at 21:00 Digoxin (Digoxin) 0.125 mg DAILY@1300 PO Last administered on 06/14/18at 12:39; Admin Dose 0.125 MG; Start 06/12/18 at 17:30 Pantoprazole (Protonix Tab) 40 mg DAILY@06 PO Last administered on 06/15/18 05:39; Admin Dose 40 MG; Start 06/13/18 at 06:00 Sucralfate (Carafate Susp) 1 gm QID PO Last administered on 06/14/18 21:25; Admin Dose 1 GM; Start 06/12/18 at 21:00 Rivaroxaban (Xarelto) 20 mg WITH DINNER PO Last administered on 06/14/18at 17:06; Admin Dose 20 MG; Start 06/13/18 at 19:00 Guaifenesin/ Dextromethorphan (Robitussin Dm Liquid Cup) 5 ml Q4H PRN PO cough Last administered on 06/14/18 21:25; Admin Dose 5 ML; Start 06/12/18 at 18:00 Spironolactone (Aldactone) 25 mg DAILY PO Last administered on 06/14/18 08:48; Admin Dose 25 MG; Start 06/12/18 at 18:30 Losartan Potassium (Cozaar) 12.5 mg DAILY PO Last administered on 06/13/18at 08:47; Admin Dose 12.5 MG; Start 06/13/18 at 09:00 Bumetanide (Bumex) 2 mg BID DIURETICS PO Last administered on 06/15/18at 05:39; Admin Dose 2 MG; Start 06/13/18 at 18:00 Metoprolol Succinate (Toprol Xl) 12.5 mg DAILY PO ; Start 06/15/18 at 09:00 Assessment/Plan Hospital Course (Demo Recall) Congestive heart failure: Acute on chronic secondary systolic and diastolic heart failure as well as noncompliance Atrial fibrillation Severe nonischemic cardiomyopathy ejection fraction has been about 10% previously Abnormal EKG Noncompliant Chronic kidney disease Recommendations: Continue with the digoxin cont ARB Continue with Xarelto. 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 We will continue to follow along with you KRISTINA ZAVALA MD [facility] KRISTINA ZAVALA MD Jun 15, 2018 08:06
[2018-06-15] MEDS: SUCRALFATE (100 MG/ML) 10ML CUP PO SCH ×4 (08:49→20:30)
[2018-06-15] MEDS: ALLOPURINOL 300 MG TAB PO SCH (08:50)
[2018-06-15] MEDS: SPIRONOLACTONE 25 MG TAB PO SCH (08:50)
[2018-06-15] MEDS: LOSARTAN 25 MG TAB PO SCH (08:51)
[2018-06-15] MEDS: METOPROLOL (XL) 25 MG TAB PO SCH (08:52)
--- NOTE | 2018-06-15 09:35 | PN ---
DATE: 06/15/2018 SUBJECTIVE: The patient is stable. No events overnight. No fevers, chills, nausea, vomiting. OBJECTIVE: VITAL SIGNS: Blood pressure is 107/77, pulse 92, respiration 18, temperature 98.1. HEENT: Head is normocephalic. NECK: Supple. HEART: Regular rate. LUNGS: Show diminished breath sounds at the base. ABDOMEN: Soft, nontender to palpation without rebound or guarding. EXTREMITIES: Negative for clubbing, cyanosis, no edema. DERMATOLOGIC: No rashes. MUSCULOSKELETAL: No joint effusion. NEUROLOGIC: No change in exam. MEDICATIONS: Have been reviewed. LABORATORY DATA: Has been reviewed. IMAGING STUDIES: Have been reviewed. ASSESSMENT AND PLAN: 1. Nonoliguric acute kidney injury on top of chronic kidney disease with previous baseline creatinin e 1.0 mg/dL. Etiology of acute kidney injury is secondary to cardiorenal syndrome. The patient's re nal function is improving. Continue current treatment plan, supportive care, renally dose meds. Con tinue diuretic therapy. 2. Hypokalemia. Continue to monitor and replete. Continue Aldactone. 3. Mineral bone disorder. Monitor calcium and phosphorus levels. 4. Acute decompensated heart failure. Continue current diuretic therapy. Continue medical manageme nt. 5. Dyslipidemia. Continue statin therapy. 6. Coronary artery disease. Continue medical management. 7. Chest pain, resolving. Dictated By: CATA GUERRREO DO NR/NTS Conf#: [id number] DID#: [id number] CC: GUSTAVO GIANG MD;*EndCC*
[2018-06-15] MEDS ORDERED: POTASSIUM CHLORIDE (SR) 20 MEQ TAB PO SCH (12:00)
[2018-06-15] MEDS: DIGOXIN 0.125 MG TAB PO SCH (16:28)
--- NOTE | 2018-06-15 17:03 | PN ---
Date/Time of Note Date/Time of Note DATE: 06/15/18 TIME: 17:02 Objective Vitals Vital Signs Date Temp Pulse Resp B/P (MAP) Pulse Ox O2 O2 Flow FiO2 Time Delivery Rate 06/15/18 97.4 94 18 108/66 95 Room Air 16:25 (80) 06/14/18 2.0 20:05 Intake and Output 06/14/18 06/14/18 06/15/18 1515:00 23:00 07:00 IntakeIntake Total 800 ml OutputOutput Total 1100 ml 500 ml 6000 ml BalanceBalance -1100 ml -500 ml -5200 ml Results Result Diagram: 06/15/18 0606/15/18 06 Medications Medications Current Medications IV Flush (NS 3 ml) 3 ml PER PROTOCOL IV ; Start 06/12/18 at 14:00 Ondansetron HCl (Zofran Inj) 4 mg Q6H PRN IV NAUSEA/VOMITING; Start 06/12/18 at 14:00 Acetaminophen (Tylenol Tab) 650 mg Q6H PRN PO .PAIN 1-3 OR TEMP; Start 06/12/18 at 14:00 Acetaminophen/ Hydrocodone Bitart ([place] (5/325)) 1 tab Q6H PRN PO .PAIN 4-6 Last administered on 06/14/18at 21:25; Admin Dose 1 TAB; Start 06/12/18 at 14:00 Morphine Sulfate (morphine) 2 mg Q4H PRN IV .PAIN 7-10; Start 06/12/18 at 14:00 Allopurinol (Zyloprim) 300 mg DAILY PO Last administered on 06/15/18at 08:50; Admin Dose 300 MG; Start 06/12/18 at 17:30 Atorvastatin Calcium (Lipitor) 40 mg QHS PO Last administered on 06/14/18at 22:02; Admin Dose 40 MG; Start 06/12/18 at 21:00 Digoxin (Digoxin) 0.125 mg DAILY@1300 PO Last administered on 06/15/18at 16:28; Admin Dose 0.125 MG; Start 06/12/18 at 17:30 Pantoprazole (Protonix Tab) 40 mg DAILY@06 PO Last administered on 06/15/18at 05:39; Admin Dose 40 MG; Start 06/13/18 at 06:00 Sucralfate (Carafate Susp) 1 gm QID PO Last administered on 06/15/18 16:28; Admin Dose 1 GM; Start 06/12/18 at 21:00 Rivaroxaban (Xarelto) 20 mg WITH DINNER PO Last administered on 06/14/18 17:06; Admin Dose 20 MG; Start 06/13/18 at 19:00 Guaifenesin/ Dextromethorphan (Robitussin Dm Liquid Cup) 5 ml Q4H PRN PO cough Last administered on 06/14/18 21:25; Admin Dose 5 ML; Start 06/12/18 at 18:00 Spironolactone (Aldactone) 25 mg DAILY PO Last administered on 06/15/18 08:50; Admin Dose 25 MG; Start 06/12/18 at 18:30 Losartan Potassium (Cozaar) 12.5 mg DAILY PO Last administered on 06/15/18 08:51; Admin Dose 12.5 MG; Start 06/13/18 at 09:00 Metoprolol Succinate (Toprol Xl) 12.5 mg DAILY PO Last administered on 08:52; Admin Dose 12.5 MG; Start 06/15/18 at 09:00 Bumetanide (Bumex) 2 mg DAILY PO ; Start 06/16/18 at 09:00 Potassium Chloride (Klor-Con 20) 20 meq ONCE PO Last administered on 06/15/18 13:56; Admin Dose 20 MEQ; Start 06/15/18 at 12:00; Stop 06/15/18 at 23:59 VTE Prophylaxis Risk score (from Ns)>0 risk: 3 SCD applied (from Ns): No SCD contraindication: other Lines/Catheters IV Catheter Type: [place] in Place: No Assessment/Plan Hospital Course Subjective Patient doing well, Objective Physical exam General: Patient is laying in bed and answers questions appropriately Mentation: Patient is alert and oriented 4, Head: Normocephalic atraumatic Eyes: EOMI, pupils reactive to light Neck: Supple, nontender, midline Respiratory: Coarse to auscultation bilaterally Cardiovascular: regular rate, no obvious murmurs Gastrointestinal: non-tender to palpation, bowel sounds heard. Neurological: Moves all extremities spontaneously Musculoskeletal: 2+ pitting edema bilaterally Assessment and plan CHF exacerbation, resolving -Cardiology consulted -Likely a combination of medication noncompliance as patient is not the most reliable source and he admittedly has not been able to take some of his medications. -IV Lasix changed now to p.o. medications -Additional medications per cardiology Cough, resolving -Secondary to above CHF exacerbation -Robitussin as needed likely will not go away until CHF is under control Questionable chest pain, resolved -ED was concerned about chest pain however patient denies any chest pain or shortness of breath, however patient may be getting the story mixed up or may be secondary to atypical chest pain from his acid reflux, however since it may be atypical, -Troponin negative Lower extremity edema -Secondary to above CHF exacerbation -Ultrasound obtained to rule out DVT, unlikely DVT however -Patient feeling mild numbness, will consult vascular surgeon for opinion, arterial studies ordered Acid reflux -Appears to be fairly severe as patient is experiencing difficulty with occasional coughing up his medications due to what he states is foam from acid reflux -PPI, Carafate appears to be helping significantly -Acid reflux has resolved A. fib -Patient on Xarelto at home, continue Xarelto Acute kidney injury versus chronic kidney disease -Patient had similar presentation on previous admission -Nephrology consulted Dyslipidemia -Continue atorvastatin Hypo-kalemia -Replete as needed Disposition -Cardiology and nephrology consulted, recommendations appreciated -If patient stable with potassium, plan DC tomorrow. GUSTAVO GIANG Jun 15, 2018 17:03
[2018-06-15] MEDS: RIVAROXABAN 20 MG TABLET PO SCH (18:56)
[2018-06-15] MEDS: ATORVASTATIN 40 MG TAB PO SCH (20:30)
[2018-06-15] MEDS: HYDROCODONE/APAP (5/325) TAB PO PRN (20:30)
[2018-06-16 03:03] VITALS: BP 93/66; PULSE 75; RESP 18
[2018-06-16] MEDS: PANTOPRAZOLE (EC) 40 MG TAB PO SCH (06:08)
[2018-06-16 08:00] VITALS: BP 119/81; PULSE 76; RESP 18
[2018-06-16] MEDS ORDERED: BUMETANIDE 1 MG TAB PO SCH (09:00)
--- NOTE | 2018-06-16 09:47 | PN ---
DATE: 06/16/2018 SUBJECTIVE: The patient is stable, no events overnight. No fevers, chills, nausea, vomiting. OBJECTIVE: VITAL SIGNS: Blood pressure is 119/81, respiration 18, pulse 76, temperature 98.2. HEENT: Head is normocephalic. NECK: Supple. HEART: Regular rate. LUNGS: Show diminished breath sounds at the base. ABDOMEN: Soft, nontender to palpation without rebound or guarding. EXTREMITIES: Negative for clubbing, cyanosis. Trace edema. DERMATOLOGIC: No rashes. MUSCULOSKELETAL: No joint effusion. NEUROLOGIC: No change in exam. MEDICATIONS: Reviewed. LABORATORY DATA: From 06/16/2018 was reviewed. ASSESSMENT AND PLAN: 1. Nonoliguric acute kidney injury on top of chronic kidney disease with previous baseline creatinin e 1.0 mg/dL. Etiology of acute kidney injury is secondary to cardiorenal syndrome. Renal function i s improving. Continue current treatment, supportive care, renally dose all medications. 2. Hypokalemia. Continue to monitor and replete as needed. 3. Mineral bone disorder, monitor calcium and phosphorus levels. 4. Acute decompensated heart failure. The patient is clinically improving. Continue current diuret ic regimen. 5. Dyslipidemia. Continue statin therapy. 6. Coronary artery disease. Continue medical management. 7. Chest pain, resolved. Dictated By: CATA GUERRERO DO NR/NTS Conf#: [id number] DID#: [id number] CC: GUSTAVO GIANG MD;*EndCC*
[2018-06-16] MEDS: SUCRALFATE (100 MG/ML) 10ML CUP PO SCH ×2 (09:51→13:00)
[2018-06-16] MEDS: ALLOPURINOL 300 MG TAB PO SCH (09:52)
[2018-06-16] MEDS: SPIRONOLACTONE 25 MG TAB PO SCH (09:52)
[2018-06-16] MEDS: METOPROLOL (XL) 25 MG TAB PO SCH (09:52)
[2018-06-16] MEDS: LOSARTAN 25 MG TAB PO SCH (09:52)
--- NOTE | 2018-06-16 11:32 | DS ---
Date/Time of Note Date/Time of Note DATE: 06/16/18 TIME: 11:32 Discharge Summary Admission/Discharge Info Admit Date/Time Jun 12, 2018 at 13:10 Discharge Date/Time Patient Condition: Stable Hospital Course Patient is a male with a past medical history significant for CHF who is intermittently compliant with his medications who presents to [facility] for CHF exacerbation. Patient was seen by cardiology as well as nephrology. Patient was continued on certain medications and adjusted for his CHF exacerbation. Patient also had his acid reflux treated. After a few days in the hospital patient's condition significantly improved and patient felt well enough to go home. Patient was seen by physical therapy and was also seen by community mental health social worker. Patient has no other needs at this time and will be discharged with all new medications. Patient is alert and oriented and has no acute issues at this time. Discharge diagnosis CHF exacerbation, resolving Cough, resolved Lower extremity edema, resolving Acid reflux, controlled A. fib, controlled Acute kidney injury, resolved Dyslipidemia Hypokalemia, resolving Home Meds Reported Medications [Potassium] No Conflict Check, 1 TAB PO BID 06/12/18 Aspirin* (Aspirin* EC) 81 Mg Tablet.dr, 81 MG PO DAILY, TAB 06/12/18 Rivaroxaban* (Xarelto*) 20 Mg Tablet, 20 MG PO WITH DINNER, TAB 06/12/18 Allopurinol* (Allopurinol*) 300 Mg Tablet, 300 MG PO DAILY, TAB 06/12/18 Furosemide* (Furosemide*) 20 Mg Tablet, 20 MG PO BID, #30 TAB 06/12/18 Digoxin* (Digitek*) 125 Mcg Tablet, 0.125 MG PO DAILY, TAB 06/12/18 Bumetanide* (Bumetanide*) 1 Mg Tablet, 1 MG PO BID, TAB 06/12/18 Atorvastatin* (Atorvastatin*) 40 Mg Tablet, 40 MG PO QHS, #30 TAB 06/12/18 Discontinued Reported Medications Rivaroxaban* (Xarelto*) 20 Mg Tablet, 20 MG PO WITH DINNER, TAB 02/23/18 Multivitamins* (Theragran*) 1 Tab Tab, 1 TAB PO DAILY, TAB 02/23/18 Digoxin* (Digitek*) 125 Mcg Tablet, 0.125 MG PO DAILY, TAB 02/23/18 Carvedilol* (Carvedilol*) 6.25 Mg Tablet, 6.25 MG PO BID, #60 TAB 02/23/18 Atorvastatin* (Atorvastatin*) 40 Mg Tablet, 40 MG PO QHS, #30 TAB 02/23/18 Discontinued Scripts Albuterol Sulfate* (Proair HFA*) 8.5 Gm Hfa.aer.ad, 2 PUFF INH Q4H PRN for WHEEZING AND SOB for 30 Days, #5 INHALER Prov:LOY STARR MD 03/01/18 Bumetanide* (Bumetanide*) 1 Mg Tablet, 1 MG PO BID DIURETICS for 30 Days, #60 TAB 5 Refills Prov:LOY STARR MD 03/01/18 Allopurinol* (Allopurinol*) 300 Mg Tablet, 300 MG PO DAILY for 30 Days, #30 TAB Prov:LOY STARR MD 03/01/18 Primary Care Provider [facility] Time spent on discharge: > 30 minutes Pending Labs Laboratory Tests Test 06/16/18 04:53 White Blood Count 6.7 10^3/ul (4.8-10.8) Red Blood Count 4.15 10^6/ul (4.70-6.10) Hemoglobin 14.1 g/dl (14.0-18.0) Hematocrit 43.2 % (42.0-52.0) Mean Corpuscular Volume 104.1 fl (82.0-101.0) Mean Corpuscular Hemoglobin 34.0 pg (29.0-33.0) Mean Corpuscular Hemoglobin Concent 32.6 g/dl (32.0-37.0) Red Cell Distribution Width 15.1 % (11.5-14.5) Platelet Count 141 10^3/UL (140-415) Mean Platelet Volume 12.7 fl (7.4-10.4) Immature Granulocytes % 0.100 % (0.001-0.429) Neutrophils % 63.4 % (39.0-77.0) Lymphocytes % 20.4 % (15.0-51.0) Monocytes % 13.1 % (0.0-11.0) Eosinophils % 2.4 % (0.0-7.0) Basophils % 0.6 % (0.0-2.0) Nucleated Red Blood Cells % 0.0 /100WBC (0.0-0.0) Immature Granulocytes # 0.010 10^3/ul (0.0-0.031) Neutrophils # 4.3 10^3/ul (1.6-7.5) Lymphocytes # 1.4 10^3/ul (0.8-2.9) Monocytes # 0.9 10^3/ul (0.3-0.9) Eosinophils # 0.2 10^3/ul (0.0-0.5) Basophils # 0.0 10^3/ul (0.0-0.1) Nucleated Red Blood Cells # 0.0 10^3/ul (0.0-0.0) Sodium Level 136 mmol/L (135-144) Potassium Level 3.8 mmol/L (3.5-5.1) Chloride Level 92 mmol/L (97-110) Carbon Dioxide Level 33 mmol/L (21-31) Anion Gap 11 (5-13) Blood Urea Nitrogen 49 mg/dl (7-20) Creatinine 1.15 mg/dl (0.61-1.24) Est Glomerular Filtrat Rate mL/min > 60 mL/min (>60) Glucose Level 53 mg/dl (70-220) Calcium Level 9.1 mg/dl (8.4-10.2) Phosphorus Level 3.5 mg/dl (2.5-4.9) Magnesium Level 1.9 mg/dl (1.7-2.5) GUSTAVO GIANG Jun 16, 2018 11:32
[2018-06-16] MEDS ORDERED: SUCR1TAB56 PO (11:41)
[2018-06-16] MEDS ORDERED: DIGO125T PO (11:41)
[2018-06-16] MEDS ORDERED: SPIR25TA PO (11:41)
[2018-06-16] MEDS ORDERED: OMEP20CA16 PO (11:41)
[2018-06-16] MEDS ORDERED: BUME1TAB PO (11:41)
[2018-06-16] MEDS ORDERED: ALLO300T2 PO (11:41)
[2018-06-16] MEDS ORDERED: RIVA20TA5 PO (11:41)
[2018-06-16] MEDS ORDERED: LOSA25TA2 PO (11:41)
[2018-06-16] MEDS ORDERED: ATOR40TA68 PO (11:41)
[2018-06-16] MEDS ORDERED: METO-335 PO (11:41)
--- NOTE | 2018-06-16 11:42 | PDOCDIS ---
Discharge Instructions CONDITION [id number] Patient Condition: [id number] Stable FOLLOW UP/APPOINTMENTS Follow-up Plan 1. Please continue to take all new medication, sent to your pharmacy 2. Please follow-up with your manager cafe and primary doctor as soon as possible. GUSTAVO GIANG Jun 16, 2018 11:42
[2018-06-16] MEDS: DIGOXIN 0.125 MG TAB PO SCH (13:00)
== END 2018-06-16 14:50 | disposition home or self-care (01) | DRG 291 ==
LOC: E/R 10:48 → 6WM 13:10 → 2NE 06-15 12:15
PROVIDERS: ADMIT Internal Medicine; ATTEND Internal Medicine
DX: I13.0 Hypertensive heart and chronic kidney disease with heart failure and stage 1 through stage 4 chronic kidney disease, or unspecified chronic kidney disease (principal); I50.43 Acute on chronic combined systolic (congestive) and diastolic (congestive) heart failure; N17.9 Acute kidney failure, unspecified; I42.9 Cardiomyopathy, unspecified; I48.91 Unspecified atrial fibrillation; E78.5 Hyperlipidemia, unspecified; M10.9 Gout, unspecified; R60.9 Edema, unspecified; K21.9 Gastro-esophageal reflux disease without esophagitis; N18.9 Chronic kidney disease, unspecified; E87.6 Hypokalemia; I25.10 Atherosclerotic heart disease of native coronary artery without angina pectoris; Z91.14 Patient's other noncompliance with medication regimen; Z79.02 Long term (current) use of antithrombotics/antiplatelets; I42.8 Other cardiomyopathies
CPT/HCPCS: 36415; 71045; 80048; 80053; 80061; 80069; 80162; 81003; 82043; 82550; 82553; 83036; 83735; 83880; 84100; 84155; 84300; 84439; 84443; 84484; 85025; 87400; 93005; 93306; 93922; 93970; 96374; 97162; J1940; J2060

== ENCOUNTER 2018-06-19 18:30 | Emergency (ER) | payer OTHER ==
[~2018-06-19] VITALS: Ht 185.4 cm; Wt 89.6 kg
[~2018-06-19 18:30] MED LIST changes: -ALBU8.5H8 INH; -CARV6.2579 PO; +LOSA25TA2 PO; +METO-335 PO; -MULTI PO; +OMEP20CA16 PO; +SPIR25TA PO; +SUCR1TAB56 PO
[2018-06-19 18:57] VITALS: Ht 185.4 cm; Wt 89.6 kg
[2018-06-20] MEDS ORDERED: FUROSEMIDE 40 MG INJ IV ONE
[2018-06-20 00:16] VITALS: BP 104/88; PULSE 98; RESP 18
--- NOTE | 2018-06-20 00:36 | ERD ---
ER Documentation Chief Complaint Chief Complaint SOB x 2 days. states hasn't taken meds HPI 57-year-old male with shortness of breath for 2 days. Patient was resubmitted for CHF is been noncompliant with his medications. Denies fevers chills nausea vomiting chest pain. Denies any other current issues. ROS All systems reviewed and are negative except as per history of present illness. Medications Home Meds Active Scripts Metoprolol Succinate* (Toprol XL*) 25 Mg Tab.sr.24h, 12.5 MG PO DAILY for 30 Days, #30 1 Refill Prov:GUSTAVO GIANG 06/16/18 Sucralfate* (Carafate*) 1 Gm Tab, 1 GM PO Q6 for 7 Days, #28 TAB Prov:GUSTAVO GIANG 06/16/18 Omeprazole* (Omeprazole*) 20 Mg Capsule.dr, 20 MG PO DAILY, #30 CAP 1 Refill Prov:GUSTAVO GIANG 06/16/18 Bumetanide* (Bumetanide*) 1 Mg Tablet, 2 MG PO DAILY for 30 Days, #60 TAB 2 Refills Prov:GUSTAVO GIANG 06/16/18 Spironolactone* (Aldactone*) 25 Mg Tablet, 25 MG PO DAILY for 30 Days, #30 TAB 2 Refills Prov:GUSTAVO GIANG 06/16/18 Losartan Potassium* (Cozaar*) 25 Mg Tablet, 12.5 MG PO DAILY for 30 Days, #15 TAB 2 Refills Prov:GUSTAVO GIANG 06/16/18 Rivaroxaban* (Xarelto*) 20 Mg Tablet, 20 MG PO WITH DINNER for 30 Days, #30 TAB 2 Refills Prov:GUSTAVO GIANG 06/16/18 Allopurinol* (Allopurinol*) 300 Mg Tablet, 300 MG PO DAILY for 30 Days, #30 TAB 2 Refills Prov:GUSTAVO GIANG 06/16/18 Digoxin* (Digitek*) 125 Mcg Tablet, 0.125 MG PO DAILY for 30 Days, #30 TAB 2 Refills Prov:GUSTAVO GIANG 06/16/18 Atorvastatin* (Atorvastatin*) 40 Mg Tablet, 40 MG PO QHS, #30 TAB 2 Refills Prov:GUSTAVO IGANG 06/16/18 Discontinued Reported Medications [Potassium] No Conflict Check, 1 TAB PO BID 06/12/18 Aspirin* (Aspirin* EC) 81 Mg Tablet.dr, 81 MG PO DAILY, TAB 06/12/18 Furosemide* (Furosemide*) 20 Mg Tablet, 20 MG PO BID, #30 TAB 06/12/18 Bumetanide* (Bumetanide*) 1 Mg Tablet, 1 MG PO BID, TAB 06/12/18 Allergies Allergies: Coded Allergies: No Known Drug Allergies (Verified Allergy, Mild, 06/12/18) PMhx/Soc History of Surgery: No Anesthesia Reaction: No Hx Neurological Disorder: No Hx Respiratory Disorders: No Hx Cardiac Disorders: Yes (a-fib, cardiomyopathy,htn) Hx Psychiatric Problems: No Hx Miscellaneous Medical Probl: Yes (See technical record) Hx Alcohol Use: No Hx Substance Use: No Hx Tobacco Use: No Smoking Status: Never smoker Physical Exam Vitals Vital Signs Date Temp Pulse Resp B/P (MAP) Pulse Ox O2 O2 Flow FiO2 Time Delivery Rate 06/20/18 98.4 98 18 104/88 99 Room Air 00:16 (93) 06/19/18 98.4 93 18 115/91 99 Room Air 23:24 (99) 06/19/18 98.4 97 18 108/81 99 Room Air 21:39 (90) 06/19/18 Nasal 2 21:39 Cannula 06/19/18 98.4 115 18 131/60 99 18:57 (83) Physical Exam Const: No acute distress Head: Atraumatic Eyes: Normal Conjunctiva ENT: Normal External Ears, Nose and Mouth. Neck: Full range of motion. No meningismus. Resp: Clear to auscultation bilaterally Cardio: Regular rate and rhythm, no murmurs Abd: Soft, non tender, non distended. Normal bowel sounds Skin: No petechiae or rashes Back: No midline or flank tenderness Ext: No cyanosis, or edema Neur: Awake and alert Psych: Normal Mood and Affect Result Diagram: 06/19/18214206/19/182142 Results 24 hrs Laboratory Tests Test 06/19/18 21:43 White Blood Count 6.8 10^3/ul Red Blood Count 4.30 10^6/ul Hemoglobin 14.5 g/dl Hematocrit 43.7 % Mean Corpuscular Volume 101.6 fl Mean Corpuscular Hemoglobin 33.7 pg Mean Corpuscular Hemoglobin Concent 33.2 g/dl Red Cell Distribution Width 14.9 % Platelet Count 140 10^3/UL Mean Platelet Volume 12.3 fl Immature Granulocytes % 0.300 % Neutrophils % 60.1 % Lymphocytes % 22.7 % Monocytes % 14.8 % Eosinophils % 0.9 % Basophils % 1.2 % Nucleated Red Blood Cells % 0.0 /100WBC Immature Granulocytes # 0.020 10^3/ul Neutrophils # 4.1 10^3/ul Lymphocytes # 1.6 10^3/ul Monocytes # 1.0 10^3/ul Eosinophils # 0.1 10^3/ul Basophils # 0.1 10^3/ul Nucleated Red Blood Cells # 0.0 10^3/ul Sodium Level 137 mmol/L Potassium Level 4.6 mmol/L Chloride Level 98 mmol/L Carbon Dioxide Level 27 mmol/L Anion Gap 12 Blood Urea Nitrogen 34 mg/dl Creatinine 1.04 mg/dl Est Glomerular Filtrat Rate mL/min > 60 mL/min Glucose Level 133 mg/dl Calcium Level 9.3 mg/dl Total Bilirubin 1.6 mg/dl Direct Bilirubin 0.00 mg/dl Indirect Bilirubin 1.6 mg/dl Aspartate Amino Transf (AST/SGOT) 49 IU/L Alanine Aminotransferase (ALT/SGPT) 18 IU/L Alkaline Phosphatase 190 IU/L Troponin I 0.039 ng/ml B-Type Natriuretic Peptide 82263 PG/ML Total Protein 7.1 g/dl Albumin 3.9 g/dl Globulin 3.20 g/dl Albumin/Globulin Ratio 1.21 Current Medications Medications Dose Sig/Pedro Start Time Status Last (Trade) Ordered Route PRN Stop Time Admin Dose Reason Admin Furosemide 40 mg ONCE ONCE 06/20/18 DC 06/20/18 (Lasix) IV 00:00 00:07 06/20/18 00:01 Procedures/MDM EKG: Rate/Rhythm: [Normal Sinus Rhythm] QRS, ST, T-waves: [No changes consistent w/ acute ischemia] Impression: [No evidence of ischemia or arrhythmia] Chest X-ray 1V Interpreted by me: Soft Tissue: No acute abnormalities Bones: No acute abnormalities Mediastinum/Cardiac Silhouette/Lungs: Cardiomegaly. Increased interstitial fluid markings. Impression: Stable CHF Medical decision making: Patient's respiratory status has stabilized while in the department and is appropriate for outpatient work up. Exam and work up not consistent w/ impending respiratory failure or cardiovascular collapse. Departure Diagnosis: Primary Impression: CHF (congestive heart failure) Heart failure type: unspecified Heart failure chronicity: unspecified Qualified Codes: I50.9 - Heart failure, unspecified Condition: Serious Patient Instructions: When Your Child Has Congestive Heart Failure (CHF) DORETHA MONTILLA Jun 20, 2018 00:36
== END 2018-06-20 01:39 | disposition home or self-care (01) ==
LOC: E/R 18:30
DX: I11.0 Hypertensive heart disease with heart failure (principal); I50.9 Heart failure, unspecified; Z79.01 Long term (current) use of anticoagulants
CPT/HCPCS: 36415; 71045; 80053; 83880; 84484; 85025; 93005; 96374; J1940; Z7502

== ENCOUNTER 2018-11-14 16:56 | Emergency (ER) | payer OTHER ==
[~2018-11-14] VITALS: Ht 188 cm; Wt 86.4 kg
[2018-11-14 17:04] VITALS: Ht 188 cm; Wt 86.4 kg
[2018-11-14] MEDS ORDERED: TRANEXAMIC ACID 1GM/100ML(PMX) 100 ML IV STA (17:11)
[2018-11-14] MEDS ORDERED: SOD CHLORIDE 0.9% IVPB ONE (17:30)
[2018-11-14] MEDS ORDERED: DESMOPRESSIN IVPB ONE (17:30)
[2018-11-14] MEDS ORDERED: ONDANSETRON 4 MG INJ IV STA (18:03)
[2018-11-14] MEDS ORDERED: morphine 4 MG/ML VIAL IV STA (19:16)
[2018-11-14 19:31] VITALS: BP 107/91; PULSE 80; RESP 16
== END 2018-11-14 20:02 | disposition home or self-care (01) ==
LOC: E/R 16:56
DX: K91.840 Postprocedural hemorrhage of a digestive system organ or structure following a digestive system procedure (principal); I11.0 Hypertensive heart disease with heart failure; I50.9 Heart failure, unspecified; Z79.02 Long term (current) use of antithrombotics/antiplatelets
CPT/HCPCS: 36415; 80053; 84484; 85025; 85610; 85730; 86850; 86900; 86901; 93005; 96365; 96375; J2270; J2405; J2597; Z7502; Z7610